=== PATIENT | male | born 1935 | race Caucasian/White ===

== ENCOUNTER 2016-09-18 17:27 | Inpatient (IN) | payer OTHER, MEDICARE ==
[~2016-09-18] VITALS: Ht 180.3 cm; Wt 87.5 kg
[~2016-09-18 17:27] MED LIST: ALBUTEROL 3 ML3 ML INH; AMITIZA24 MCG PO; AMLODIPINE10 MG PO; ANTIVERT 12.512.5 MG; ANTIVERT 12.512.5 MG PO; ATIVAN0.5 MG PO; CARDIZEM CD120 M2 PO; CEFTIN500 MG PO; CENTRUM SILVER1 EAC4 PO; CHILDREN'S ASPI81 M1 PO; CLOPIDOGREL75 MG PO; COLACE100 M1 PO; DIGOXIN250 MCG PO; DILTIAZEM HCL90 MG PO; DOCUSATE SODIU100 M3 PO; DOXAZOSIN MESYLA2 MG PO; DOXAZOSIN MESYLA4 MG PO; DOXAZOSIN2 MG PO; DOXAZOSIN4 MG PO; DUONEB 3 MG/3 ML3 ML INH/SOL; ELIQUIS5 M1 PO; FIBERCON625 M1 PO; FINASTERIDE5 MG PO; FLOVENT HF0.11 MG/Ac INH; FLOVENT HF0.22 MG/Ac INH; FLUTICASON0.05 MG/A2 NASB; FUROSEMIDE40 MG PO; HYDRODIURIL 2525 MG PO; K-DUR 10MEQ TA10 MEQ PO; LACTULOSE10 GM/153 PO; LANOXIN125 MCG PO; LASIX20 M1 PO; LASIX40 M1 PO; LASIX40 MG PO; LIPITOR40 M1 PO; LISINOPRIL-HCT1 EACH PO; LISINOPRIL40 MG PO; LORAZEPAM2 M1 PO; LORAZEPAM2 MG PO; METAMUCIL1 PAC PO; MIRALAX119 GM PO; MIRALAX17 GM PO; MOVANTIK25 M1; NITRO-DUR1 EAC3 TOP; OXYCODONE HCL E20 MG PO; OXYCODONE HCL30 M1 PO; OXYCODONE HYDRO30 MG PO; OXYCONTIN (MONO40 MG PO; OXYCONTIN10 MG PO; OXYCONTIN20 M1 PO; OXYCONTIN20 MG PO; OXYCONTIN40 M1 PO; OXYCONTIN40 MG PO; PANTOPRAZOLE SO20 M1 PO; PATADAY2.5 ML OPH; POTASSIUM CHLO10 ME5 PO; PREDNISONE10 M2 PO; PREDNISONE10 MG PO; PRINIVIL40 MG PO; RELISTOR12 MG/0.2 SC; ROXICODONE30 M1 PO; ROXICODONE30 MG PO; SPIRIVA 18 MCG18 MCG INH; SUPPOSITORY1 EACH PR; TRAZODONE HCL100 M1 PO; TRAZODONE100 MG PO; ZESTORETIC 12.51 TA1 PO
--- NOTE | 2016-09-18 18:02 | ED CARDIAC/CP/PALPITATIONS ---
History of Present Illness General Chief Complaint: Dyspnea (COPD, CHF, Other) Stated Complaint: SHORTNESS OF BREATH Source: patient, family, old records Exam Limitations: no limitations Vital Signs & Intake/Output Vital Signs & Intake/Output Vital Signs Date Time Temp Pulse Resp B/P Pulse O2 O2 Flow FiO2 Ox Delivery Rate 09/21 1011 140 128/70 09/21 0756 97.7 110 20 128/70 94 Nasal 3.0L Cannula 09/21 0040 97.8 81 20 118/70 97 09/21 0000 94 Nasal 3.0L Cannula 09/20 1945 91 Nasal 3.0L Cannula 09/20 1643 98.0 90 20 119 09/20 1607 115 152/84 09/20 1600 Nasal 3.0L Cannula ED Intake and Output 09/21 0000 09/20 1200 Intake Total 1120 480 Output Total 1500 600 Balance -380 -120 Intake, Oral 1120 480 Output, Urine 1500 600 Patient 202 lb Weight Allergies Coded Allergies: NO KNOWN ALLERGIES (05/30/16) Reconcile Medications Albuterol Sulfate 2.5 MG/3 ML (0.083 %) VIAL.NEB 1 Vial INH/JENYN Q4P PRN SOB ( Reported) Apixaban (Eliquis) 5 MG TABLET 1 TAB PO BID BLOOD THINNER (Reported) Aspirin (Children's Aspirin) 81 MG TAB.CHEW 1 TAB PO QPM HEART (Reported) Atorvastatin Calcium (Lipitor) 40 MG TABLET 1 TAB PO DAILY CHOLESTEROL ( Reported) Bisacodyl (Dulcolax) 10 MG SUPP.RECT 1 SUP RC EOD SEVERE CONSTIPATION ( Reported) Diltiazem HCl (Diltiazem 12HR ER) 90 MG CAP.ER.12H 1 CAP PO TID A FIB ( Reported) Docusate Sodium (Colace) 100 MG CAPSULE 2 CAP PO BID CONSTIPATION (Reported) Doxazosin Mesylate (Cardura) 4 MG TABLET 1 TAB PO QAM BP/PROSTATE (Reported) Doxazosin Mesylate 2 MG TABLET 1 TAB PO QPM BP/PROSTATE (Reported) Finasteride 5 MG TABLET 1 TAB PO DAILY PROSTATE (Reported) Fluticasone Propionate (Flovent Hfa) 220 MCG AER.W.ADAP 2 PUFF INH BID COPD/ ASTHMA (Reported) Fluticasone Propionate (Flonase Allergy Relief) 50 MCG/ACTUATION SPRAY.SUSP 2 SPRAY NASB QHS ALLERGIES (Reported) Furosemide 20 MG TABLET 1 TAB PO DAILY DIURETIC (Reported) Glycerin (Suppository) ADULT SUPP.RECT 1 SUPP [place] EOD SEVERE CONSTIPATION ( Reported) Ipratropium/Albuterol Sulfate (Iprat-Albut 0.5-3(2.5) MG/3 Ml) (Unknown Strength ) AMPUL.NEB 1 VIAL INH TID COPD (Reported) Lactulose 10 GRAM/15 ML SOLUTION 30 ML PO PRN CONSTIPATION (Reported) Lorazepam 2 MG TABLET 1 TAB PO QPM ANXIETY (Reported) Per daughter, dose reduced to 1 mg. Multivit-Min/FA/Lycopen/Lutein (Centrum Silver Men Tablet) 300 MCG-600 MCG-300 MCG TABLET 1 TAB PO DAILY SUPPLEMENT (Reported) Nitroglycerin (Nitro-Dur) 0.4 MG/HOUR PATCH.TD24 1 PATCH TOP DAILY CHEST PAIN APPLY FOR 12 HOURS EVERYDAY Oxycodone HCl (Oxycontin) 40 MG TAB.ER.12H 1 TAB PO BID PAIN (Reported) Oxycodone HCl (Oxycontin) 20 MG TAB.ER.12H 1 TAB PO BID PAIN (Reported) PT TAKES 60MG TOTAL BID Oxycodone HCl (Roxicodone) 30 MG TABLET 1-2 TAB PO Q4P PRN pain (Reported) Pantoprazole Sodium 40 MG TABLET.DR 1 TAB PO DAILY GERD (Reported) Polyethylene Glycol 3350 17 GRAM/DOSE POWDER 17 GM PO DAILY GI (Reported) Potassium Chloride 10 MEQ TAB.ER.PRT 1 TAB PO DAILY SUPPLEMENT (Reported) Prednisone 5 MG TABLET 1 TAB PO DAILY COPD (Reported) Tiotropium [place] (Spiriva) 18 MCG CAP.W.DEV 1 CAP INH DAILY COPD (Reported) Trazodone HCl 100 MG TABLET 2 TAB PO QPM anxiety/sleep (Reported) Triage Note: PT TO TRIAGE WITH C/O SOB x2DAYS. PT ARRIVED ON O2 4L NC O2SAT 94%. PT ON O2 2L NC AT BASELINE. HX OF COPD,AFIB,CAD,OH,BYPASS,PACEMAKER,TIA. PT DENIES ANY PAIN. VSS. PT TO [facility] FOR EKG. Triage Nurses Notes Reviewed? yes Onset: Gradual Duration: getting worse Timing: recent history Radiation: no radiation HPI: Patient is a 81-year-old male with a past medical history of COPD on 2 L of oxygen at all times, atrial fibrillation on a liquid with, chronic back pain, CHF who presents to emergency room with daughter in which patient lives in a private residence with his in the last 2 days patient has been complaining of worsening shortness of breath and which at night shortness breath is worse where patient has to use 4 L of oxygen due to hypoxia noted at home with 2 L noted to be 82%. Complains of significant dyspnea on exertion. Denies any new leg swelling or calf pain. Patient does take 20 mg of Lasix which she took today. Patient does go to CHF clinic once a week. 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 Denies any fever, chills, new onset of cough, chest pain arm pain jaw pain nausea vomiting palpitations, hemoptysis. (WILI LOTT) Past History Travel History Traveled to [place] past 21 day No Medical History Any Pertinent Medical History? 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 No (WILI LOTT) Review of Systems Review of Systems Constitutional: Reports: no symptoms. EENTM: Reports: no symptoms. Respiratory: Reports: see HPI, short of breath. Cardiovascular: Reports: see HPI. Denies: chest pain. GI: Reports: no symptoms. Genitourinary: Reports: no symptoms. Musculoskeletal: Reports: no symptoms. Skin: Reports: no symptoms. Neurological/Psychological: Reports: no symptoms. Hematologic/Endocrine: Reports: no symptoms. Immunologic/Allergic: Reports: no symptoms. All Other Systems: Reviewed and Negative (WILI LOTT) Physical Exam Physical Exam General Appearance: no apparent distress, comfortable Respiratory: MILD EXPIRATORY WHEEZING AND CRACKLES NOTED TO LUNG BASES Cardiovascular: irregularly irregular Comments: HEENT: Normal EENT exam, extraocular motion intact, no nystagmus. Pupils equally round and reactive to light and accommodation. Nose is atraumatic. External auditory canal and Tympanic membranes clear. Pharynx normal. No swelling or edema. Neck: Supple, no lymphadenopathy, normal range of motion without pain or tenderness Back: Nontender, no CVA tenderness. Abdomen: Soft, nontender nondistended, no appreciable organomegaly. Normal bowel sounds. No ascites Extremity: +2 bilateral pitting edema noted, no calf tenderness to palpation, normal and equal pulses. Neuro: Alert oriented x3, motor sensory normal, Skin: No appreciable rash on exposed skin, skin is warm and dry. Psych: Mood and affect is normal, memory and judgment is normal. Core Measures ACS in differential dx? Yes Severe Sepsis Present: No Septic Shock Present: No (LETICIA PARADA,WILI) Progress Differential Diagnosis: AMI, aortic dissection, atrial fibrillation, cholecystitis, CHF/pulm edema, costochondritis, hyperkalemia, hypovolemia, hyperthyroid, hyperventilation, musculoskeletal pain, myocarditis, pancreatitis, pericarditis, pneumonia, pneumothorax, PSVT, pulmonary embolism, PUD/GERD, PVCs/ PACs, respiratory failure, sepsis, unstable angina Plan of Care: Orders Procedure Date/time Status Nothing by Mouth 09/24 B Active DIGOXIN 09/24 06 Active DIPYRIDAMOLE STRESS W/NUC IMAG 09/24 UNK Active MAGNESIUM 09/22 0600 Active BASIC ELECTROLYTES PLUS BUN&CR 09/22 0600 Active CHF Diet 09/21 L Active CBC WITHOUT DIFFERENTIAL 09/21 06 Complete BASIC ELECTROLYTES PLUS BUN&CR 09/21 0600 Complete AEROSOL CHG 09/20 UNK Complete OXYGEN 09/20 UNK Complete OXYGEN DAILY CHARGE 09/20 UNK Complete OXYGEN SETUP CHG 09/19 UNK Complete AEROSOL CHG 09/19 UNK Complete OXYGEN 09/19 UNK Complete OXYGEN TRANSPORT 09/19 UNK Complete Current Medications Sig/Satish Start time Last Medication Dose Stop Time Status Admin Prednisone 5 MG DAILY 09/23 1000 AC Digoxin 0.125 MG 09/22 1700 AC (Lanoxin) Prednisone 10 MG ONCE ONE 09/22 1000 AC 09/22 1001 Digoxin 0.125 MCG 0 09/21 1700 CAN (Lanoxin 100MCG/Ml Inj Pediatric) Digoxin 0.125 MG 09/21 1700 AC (Lanoxin) 09/21 1701 Dipyridamole 55 MG ONE ONE 09/21 1030 AC (Persantine I.v. 5MG 09/23 0229 Per Ml (10ML Elizabeth)) Dextrose/Water 29 ML (D5w (Persantine Stress Test)) Digoxin 0.125 MCG ONCE ONE 09/21 1000 CAN (Lanoxin 100MCG/Ml 09/21 1001 Inj Pediatric) Lactulose 20 GM DAILY PRN 09/19 1700 AC (Enulose 20GM/30ML) Laboratory Tests 09/21/16 0610: Anion Gap 7, Estimated GFR > 60, BUN/Creatinine Ratio 23.8, CBC w Diff NO MAN DIFF REQ, RBC 3.35 L, MCV 79.9 L, MCH 26.0 L, RDW 17.0 H, MPV 7.8, Gran % 65.0, Lymphocytes % 27.2, Monocytes % 7.4, Eosinophils % 0.4, Basophils % 0 L, Absolute Granulocytes 4.6, Absolute Lymphocytes 1.9, Absolute Monocytes 0.5, Absolute Eosinophils 0, Absolute Basophils 0, PUBS MCHC 32.5 L Patient at rest was noted to have 89% with 4 L of oxygen and was due to history of present illness and exam findings there is significant suspicion of CHF and COPD. Nasal cannula was increased however after breathing treatment patient had 92% to 93% 4 L nasal cannula oxygenation (LETICIA PARADA,WILI) Diagnostic Imaging: Viewed by Me: Radiology Read. CXR Impression: SEE COMMENTS Initial ED EKG: normal axis (ATRIAL PACED RHYTHM AT 103 BPM) Comments: PATIENT: GUMARO CALI PRESENT AGE: 81 PATIENT ACCOUNT NO: [id number] : 34 LOCATION: [facility] ORDERING PHYSICIAN: WILI PARADA SERVICE DATE: 09/18/16 EXAM TYPE: RAD - XRY-PORTABLE CHEST XRAY EXAMINATION: AP chest radiograph CLINICAL INFORMATION: CHF/COPD COMPARISON: Chest radiograph 08/30/2016 and multiple additional prior chest radiographs TECHNIQUE: Portable AP view of the chest was obtained. FINDINGS: Left pectoral pacemaker is redemonstrated. Median sternotomy wires. Diffuse interstitial and hazy airspace opacities with central vascular congestion at least in part felt to reflect interstitial pulmonary edema that is slightly improved in comparison to the prior study. Previously seen small left pleural effusion is decreased in size. There is no pneumothorax. Cardiac silhouette is enlarged. No acute osseous findings. IMPRESSION: Imaging findings are again suggestive of congestive heart failure with interstitial pulmonary edema that is slightly improved in comparison to the previous study. Decreased size of a small left pleural effusion. Superimposed pneumonia is not excluded. (WILI LOTT) Departure Departure Disposition: STILL A PATIENT Condition: Stable Clinical Impression Primary Impression: CHF (congestive heart failure) Secondary Impressions: COPD (chronic obstructive pulmonary disease) Referrals: CARLOTTA WIGGINS,JOSE ALEJANDRO Strange (PCP/Family) Departure Forms: Customer Survey General Discharge Information Admission Note Spoke With: HARJIT CROFT MD Documentation of Exam: Documentation of any treatments & extenuating circumstances including Concerns Regarding Discharge (functional status, medication knowledge or non-compliance, living conditions, etc.) that warrant an admission rather than observation: [ Discussed patient with Dr. CROFT who agrees with telemetry admission for concerns of CHF and COPD. Patient requires IV steroids, repeat nebulizer treatments, IV Lasix, cardiology consultation, telemetry monitoring and repeat labs. Outpatient treatment this time due to comorbidities and presentation of dyspnea would be medically harmful] (WILI LOTT) PA/UTILIZATION REVIEW SPECIALIST Co-Sign Statement Statement: ED Attending supervision documentation- [x] I saw and evaluated the patient. I have also reviewed all the pertinent lab results and diagnostic results. I agree with the findings and the plan of care as documented in the PA's/UTILIZATION REVIEW SPECIALIST's documentation. [] I have reviewed the ED Record and agree with the PA's/UTILIZATION REVIEW SPECIALIST's documentation. [] Additions or exceptions (if any) to the PAs/UTILIZATION REVIEW SPECIALIST's note and plan are summarized below: [] (LUCIUS WIGGINS,LISA Jones) Critical Care Note Critical Care Note Critical Care Time: 30-74 min (WILI LOTT)
--- NOTE | 2016-09-18 18:37 | RADIOLOGY REPORT ---
EXAMINATION: AP chest radiograph CLINICAL INFORMATION: CHF/COPD COMPARISON: Chest radiograph 08/30/2016 and multiple additional prior chest radiographs TECHNIQUE: Portable AP view of the chest was obtained. FINDINGS: Left pectoral pacemaker is redemonstrated. Median sternotomy wires. Diffuse interstitial and hazy airspace opacities with central vascular congestion at least in part felt to reflect interstitial pulmonary edema that is slightly improved in comparison to the prior study. Previously seen small left pleural effusion is decreased in size. There is no pneumothorax. Cardiac silhouette is enlarged. No acute osseous findings. IMPRESSION: Imaging findings are again suggestive of congestive heart failure with interstitial pulmonary edema that is slightly improved in comparison to the previous study. Decreased size of a small left pleural effusion. Superimposed pneumonia is not excluded.
[2016-09-18 19:13] LABS: ABSOLUTE BASOPHIL COUNT 0 /CUMM (0.0-0.2); ABSOLUTE EOSINOPHIL COUNT 0 /CUMM (0.0-0.7); ABSOLUTE GRANULOCYTE CT 4.4 /CUMM (1.4-6.5); ABSOLUTE LYMPH COUNT 0.7 /CUMM (1.2-3.4); ABSOLUTE MONOCYTE COUNT 0.3 /CUMM (0.10-0.60); BASOPHIL % 0.4 % (0.0-2.0); EOSINOPHIL % 0.8 % (0-5); GRANULOCYTE % 81.1 % (42.2-75.2); HEMATOCRIT 26.1 % (42-52); MEAN CORPUSCULAR HGB 25.8 PG (27.0-31.0); MEAN CORPUSCULAR HGB CONC 32.3 G/DL (33.0-37.0); MEAN PLATELET VOLUME 7.2 FL (7.4-10.4); PLATELET COUNT 222 /CUMM (130-400); RBC DISTRIBUTION WIDTH 17.7 % (11.5-14.5); RED BLOOD CELL CT 3.26 /CUMM (4.70-6.10); WHITE BLOOD CELL COUNT 5.5 /CUMM (4.8-10.8)
[2016-09-18] MEDS ORDERED: ALBUTEROL2.5 MG/3 M INH/SOL (19:33)
[2016-09-18] MEDS ORDERED: IPRAT-ALBUT 0.5-3 ML INH (19:34)
[2016-09-18] MEDS ORDERED: DILTIAZEM 12HR90 MG PO (19:36)
[2016-09-18] MEDS ORDERED: CARDURA4 M1 PO (19:37)
[2016-09-18] MEDS ORDERED: DOXAZOSIN MESYLA2 M1 PO (19:37)
[2016-09-18] MEDS ORDERED: FLOVENT HFA12 GM INH (19:38)
[2016-09-18] MEDS ORDERED: FINASTERIDE5 M1 PO (19:38)
[2016-09-18] MEDS ORDERED: FLONASE ALLERG9.9 ML NASB (19:39)
[2016-09-18] MEDS ORDERED: DULCOLAX10 M1 RC (19:40)
[2016-09-18] MEDS ORDERED: PANTOPRAZOLE SO40 M1 PO (19:42)
[2016-09-18] MEDS ORDERED: PREDNISONE5 M1 PO (19:43)
[2016-09-18] MEDS ORDERED: SPIRIVA18 MCG INH (19:43)
[2016-09-18] MEDS ORDERED: FUROSEMIDE20 M1 PO (19:44)
[2016-09-18] MEDS ORDERED: POLYETHYLENE G255 GM PO (19:44)
--- NOTE | 2016-09-18 22:19 | History & Physical ---
General Information and HPI Allergies/Medications Allergies: Coded Allergies: NO KNOWN ALLERGIES (05/30/16) Home Med list Albuterol Sulfate 2.5 MG/3 ML (0.083 %) VIAL.NEB 1 Vial INH/JENNY Q4P PRN SOB ( Reported) Apixaban (Eliquis) 5 MG TABLET 1 TAB PO BID BLOOD THINNER (Reported) Aspirin (Children's Aspirin) 81 MG TAB.CHEW 1 TAB PO QPM HEART (Reported) Atorvastatin Calcium (Lipitor) 40 MG TABLET 1 TAB PO DAILY CHOLESTEROL ( Reported) Bisacodyl (Dulcolax) 10 MG SUPP.RECT 1 SUP RC EOD SEVERE CONSTIPATION ( Reported) Diltiazem HCl (Diltiazem 12HR ER) 90 MG CAP.ER.12H 1 CAP PO TID A FIB ( Reported) Docusate Sodium (Colace) 100 MG CAPSULE 2 CAP PO BID CONSTIPATION (Reported) Doxazosin Mesylate (Cardura) 4 MG TABLET 1 TAB PO QAM BP/PROSTATE (Reported) Doxazosin Mesylate 2 MG TABLET 1 TAB PO QPM BP/PROSTATE (Reported) Finasteride 5 MG TABLET 1 TAB PO DAILY PROSTATE (Reported) Fluticasone Propionate (Flovent Hfa) 220 MCG AER.W.ADAP 2 PUFF INH BID COPD/ ASTHMA (Reported) Fluticasone Propionate (Flonase Allergy Relief) 50 MCG/ACTUATION SPRAY.SUSP 2 SPRAY NASB QHS ALLERGIES (Reported) Furosemide 20 MG TABLET 1 TAB PO DAILY DIURETIC (Reported) Glycerin (Suppository) ADULT SUPP.RECT 1 SUPP [place] EOD SEVERE CONSTIPATION ( Reported) Ipratropium/Albuterol Sulfate (Iprat-Albut 0.5-3(2.5) MG/3 Ml) (Unknown Strength ) AMPUL.NEB 1 VIAL INH TID COPD (Reported) Lactulose 10 GRAM/15 ML SOLUTION 30 ML PO PRN CONSTIPATION (Reported) Lorazepam 2 MG TABLET 1 TAB PO QPM ANXIETY (Reported) Per daughter, dose reduced to 1 mg. Multivit-Min/FA/Lycopen/Lutein (Centrum Silver Men Tablet) 300 MCG-600 MCG-300 MCG TABLET 1 TAB PO DAILY SUPPLEMENT (Reported) Nitroglycerin (Nitro-Dur) 0.4 MG/HOUR PATCH.TD24 1 PATCH TOP DAILY CHEST PAIN APPLY FOR 12 HOURS EVERYDAY Oxycodone HCl (Oxycontin) 40 MG TAB.ER.12H 1 TAB PO BID PAIN (Reported) Oxycodone HCl (Oxycontin) 20 MG TAB.ER.12H 1 TAB PO BID PAIN (Reported) PT TAKES 60MG TOTAL BID Oxycodone HCl (Roxicodone) 30 MG TABLET 1-2 TAB PO Q4P PRN pain (Reported) Pantoprazole Sodium 40 MG TABLET.DR 1 TAB PO DAILY GERD (Reported) Polyethylene Glycol 3350 17 GRAM/DOSE POWDER 17 GM PO DAILY GI (Reported) Potassium Chloride 10 MEQ TAB.ER.PRT 1 TAB PO DAILY SUPPLEMENT (Reported) Prednisone 5 MG TABLET 1 TAB PO DAILY COPD (Reported) Tiotropium [place] (Spiriva) 18 MCG CAP.W.DEV 1 CAP INH DAILY COPD (Reported) Trazodone HCl 100 MG TABLET 2 TAB PO QPM anxiety/sleep (Reported) Past History Travel History Traveled to [place] past 21 day No Medical History Neurological: TIA EENT: NONE Cardiovascular: AFIB, CAD, hypertension, hyperlipidemia, myocardial infarction Respiratory: COPD, emphysema, pneumonia Gastrointestinal: hiatal hernia, pancreatitis, peptic ulcer disease Hepatic: NONE Renal: NONE Musculoskeletal: disk herniation, spinal stenosis Psychiatric: NONE Endocrine: BORDERLINE DM Blood Disorders: NONE Cancer(s): NONE 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 spouse Services at Home: None Primary Language: Nepali Functional Ability ADLs Independent: dressing, eating, toileting, bathing. Ambulation: walker IADLs Needs Assist: shopping, housework, finances, food prep, telephone, transportation, medication admin. Core Measures/Miscellaneous Severe Sepsis Severe Sepsis Present: No BC x2: Yes Lactic Acid x2: No IV ABX Broad Spectrum: No Septic Shock Septic Shock Present: No
--- NOTE | 2016-09-18 22:32 | History & Physical ---
NOVA WIGGINS,ANITRA 09/18/162: General Information and HPI MD Statement: I have seen and personally examined GUMARO CALI and documented this H&P. The patient is a 81 year old M who presented with a patient stated chief complaint of [SOB]. Source of Information: patient, family, old records Exam Limitations: no limitations History of Present Illness: This is an 81-year-old gentleman with past medical history significant for A. fib on Eliquis, COPD on 2 L o2 and indefinite steroids, hyperlipidemia, CHF, hypertension, tachy-matty syndrome status post permanent pacemaker who came in with CC of shortness of breath. Patient is predominantly Ugandan speaking so most of the history is obtained from his daughters in the room. Per daughter, this a.m. when she called, her father he seemed to be short of breath above his baseline. She had them check the pulse ox and he had saturation of 84%. Patient then increased the O2 to to 3.5 L and subsequently his saturations came up to 94%. His daughter was concerned that even short distance ambulation was causing increased shortness of breath. She called the COPD/CHF clinic but they were closed by 1:30 PM. As such, the daughter brought patient to [facility] for further workup. Patient does endorse some increased sputum. Per daughter she noticed some blood in dark sputum today. Patient denies any fevers, chills, headache, dizziness, palpitations, chest pain or sick contacts. He does endorse shortness of breath, darkening of sputum and increasing lower extremity edema. He normally goes to the CHF clinic on Wednesdays and receives 40 mg of IV Lasix diuresis. Of note, it seems like during his last admission his Lasix was stopped because patient was having kidney injury. However, the daughter has been giving him his daily by mouth Lasix 20 mg regardless as she was unaware of the change in medication. Patient has had previous admissions for SOB 2/2 multilbar PNA due to H. flu and a CHF exacerbation. On July 19 he was admitted for digoxin toxicity; after which the medication was stopped. At that time a BAL showed negative AFB smear but an AFB culture was positive for MAC. During that admission he also had a minimal increase in troponin. He was supposed to follow up after discharge with Dr. Lora for nuclear stress test and possible cardiac catheterization. Per family, stress test was deferred due to inclement weather. Allergies/Medications Allergies: Coded Allergies: NO KNOWN ALLERGIES (05/30/16) Home Med list Albuterol Sulfate 2.5 MG/3 ML (0.083 %) VIAL.NEB 1 Vial INH/JENNY Q4P PRN SOB ( Reported) Apixaban (Eliquis) 5 MG TABLET 1 TAB PO BID BLOOD THINNER (Reported) Aspirin (Children's Aspirin) 81 MG TAB.CHEW 1 TAB PO QPM HEART (Reported) Atorvastatin Calcium (Lipitor) 40 MG TABLET 1 TAB PO DAILY CHOLESTEROL ( Reported) Bisacodyl (Dulcolax) 10 MG SUPP.RECT 1 SUP RC EOD SEVERE CONSTIPATION ( Reported) Diltiazem HCl (Diltiazem 12HR ER) 90 MG CAP.ER.12H 1 CAP PO TID A FIB ( Reported) Docusate Sodium (Colace) 100 MG CAPSULE 2 CAP PO BID CONSTIPATION (Reported) Doxazosin Mesylate (Cardura) 4 MG TABLET 1 TAB PO QAM BP/PROSTATE (Reported) Doxazosin Mesylate 2 MG TABLET 1 TAB PO QPM BP/PROSTATE (Reported) Finasteride 5 MG TABLET 1 TAB PO DAILY PROSTATE (Reported) Fluticasone Propionate (Flovent Hfa) 220 MCG AER.W.ADAP 2 PUFF INH BID COPD/ ASTHMA (Reported) Fluticasone Propionate (Flonase Allergy Relief) 50 MCG/ACTUATION SPRAY.SUSP 2 SPRAY NASB QHS ALLERGIES (Reported) Furosemide 20 MG TABLET 1 TAB PO DAILY DIURETIC (Reported) Glycerin (Suppository) ADULT SUPP.RECT 1 SUPP MI EOD SEVERE CONSTIPATION ( Reported) Ipratropium/Albuterol Sulfate (Iprat-Albut 0.5-3(2.5) MG/3 Ml) (Unknown Strength ) AMPUL.NEB 1 VIAL INH TID COPD (Reported) Lactulose 10 GRAM/15 ML SOLUTION 30 ML PO PRN CONSTIPATION (Reported) Lorazepam 2 MG TABLET 1 TAB PO QPM ANXIETY (Reported) Per daughter, dose reduced to 1 mg. Multivit-Min/FA/Lycopen/Lutein (Centrum Silver Men Tablet) 300 MCG-600 MCG-300 MCG TABLET 1 TAB PO DAILY SUPPLEMENT (Reported) Nitroglycerin (Nitro-Dur) 0.4 MG/HOUR PATCH.TD24 1 PATCH TOP DAILY CHEST PAIN APPLY FOR 12 HOURS EVERYDAY Oxycodone HCl (Oxycontin) 40 MG TAB.ER.12H 1 TAB PO BID PAIN (Reported) Oxycodone HCl (Oxycontin) 20 MG TAB.ER.12H 1 TAB PO BID PAIN (Reported) PT TAKES 60MG TOTAL BID Oxycodone HCl (Roxicodone) 30 MG TABLET 1-2 TAB PO Q4P PRN pain (Reported) Pantoprazole Sodium 40 MG TABLET.DR 1 TAB PO DAILY GERD (Reported) Polyethylene Glycol 3350 17 GRAM/DOSE POWDER 17 GM PO DAILY GI (Reported) Potassium Chloride 10 MEQ TAB.ER.PRT 1 TAB PO DAILY SUPPLEMENT (Reported) Prednisone 5 MG TABLET 1 TAB PO DAILY COPD (Reported) Tiotropium [place] (Spiriva) 18 MCG CAP.W.DEV 1 CAP INH DAILY COPD (Reported) Trazodone HCl 100 MG TABLET 2 TAB PO QPM anxiety/sleep (Reported) Compliance With Home Meds: GOOD Past History Travel History Traveled to [place] past 21 day No Medical History Neurological: TIA EENT: NONE Cardiovascular: AFIB, CAD, hypertension, hyperlipidemia, myocardial infarction Respiratory: COPD, emphysema, pneumonia Gastrointestinal: hiatal hernia, pancreatitis, peptic ulcer disease Hepatic: NONE Renal: NONE Musculoskeletal: disk herniation, spinal stenosis Psychiatric: NONE Endocrine: BORDERLINE DM Blood Disorders: NONE Cancer(s): NONE PRICE LISTER/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 spouse Services at Home: None Primary Language: Ugand[place] Functional Ability ADLs Independent: dressing, eating, toileting, bathing. Ambulation: walker IADLs Needs Assist: shopping, housework, finances, food prep, telephone, transportation, medication admin. Exam & Diagnostic Data Last 24 Hrs of Vital Signs/I&O Vital Signs Date Time Temp Pulse Resp B/P Pulse O2 O2 Flow FiO2 Ox Delivery Rate 09/19 0000 Nasal 3.0L Cannula 09/18 2308 98.2 68 22 140/70 93 Nasal 3.0L Cannula 09/189 93 Nasal 3.0L Cannula 09/18 2132 96 18 133/71 95 Room Air 09/18 2100 98.7 92 20 116/61 93 Nasal 3.0L Cannula 09/184 94 Nasal 3.0L Cannula 09/18 1950 93 Nasal 3.0L Cannula 09/18 1936 98.9 85 18 135/65 93 Nasal 3.0L Cannula 09/18 1733 98.2 118 18 149/79 94 Nasal 4.0L Cannula Intake & Output 09/19 0800 09/19 0000 09/18 1600 Intake Total 0 Output Total 1225 Balance -1225 Intake, Oral 0 Output, Urine 1225 Patient 95.708 kg Weight Physical Exam General Appearance Alert, Oriented X3, Cooperative, No Acute Distress Skin No Rashes, No Breakdown HEENT Atraumatic, PERRLA, EOMI Neck Supple Cardiovascular irreg irregular Lungs crackles and expiratory wheezes throughout Abdomen Soft, No Tenderness Neurological Normal Speech Extremities No Clubbing, No Cyanosis, 2+ EDEMA Last 24 Hrs of Labs/Esteban: Laboratory Tests 09/18/162205: Troponin I 0.02 09/18/162112: Lactic Acid Cancelled 09/18/16 1855: Anion Gap 8, Estimated GFR > 60, BUN/Creatinine Ratio 15.7, Glucose 201 H, Lactic Acid 1.8, Calcium 8.9, Iron 20 L, TIBC 315, Ferritin 66.1, Total Bilirubin 1.1, AST 16 L, ALT 24, Alkaline Phosphatase 70, Troponin I 0.02, Pro- B-Natriuretic Pept 2700 H, Total Protein 6.2 L, Albumin 3.0 L, Globulin 3.2, Albumin/Globulin Ratio 0.9 L, CBC w Diff NO MAN DIFF REQ, RBC 3.26 L, MCV 80.0 , MCH 25.8 L, RDW 17.7 H, MPV 7.2 L, Gran % 81.1 H, Lymphocytes % 12.0 L, Monocytes % 5.7, Eosinophils % 0.8, Basophils % 0.4, Absolute Granulocytes 4.4, Absolute Lymphocytes 0.7 L, Absolute Monocytes 0.3, Absolute Eosinophils 0, Absolute Basophils 0, PUBS MCHC 32.3 L, Digoxin < 0.4 L Microbiology 09/18 2214 LOWER RESP: Respiratory Culture - RES 09/18 2214 LOWER RESP: Gram Stain - RES 09/18 1925 NASOPHARYN: Influenza Virus A & B Rapid Smear - COMP 09/18 1907 BLOOD: Blood Culture - RECD 09/18 1854 BLOOD: Blood Culture - RECD Assessment/Plan Assessment: This is an 81-year-old male with past medical history of COPD on 2 L O2 and steroids, atrial fibrillation on Eliquis, and CHF. He presents at this time for worsening shortness of breath, darkening of sputum and anemia noted upon ED workup. CXR: Imaging findings are again suggestive of congestive heart failure with interstitial pulmonary edema that is slightly improved in comparison to the previous study. Decreased size of a small left pleural effusion. Superimposed pneumonia is not excluded. EKG shows: Rate 103, MI 140, QRS 110, paced rhythm PLAN Shortness of breath: Given patient's increasing lower extremity edema and chest imaging showing congestive heart failure most likely he is in CHF exacerbation. He has a history of heart failure with preserved reaction fraction. However cannot exclude COPD component. He is currently afebrile, with no white count. This time it does not seem likely that he has an infection. * IV Lasix 40 mg 1 * Hold by mouth Lasix at this time. Consider restarting it in a.m. * CHF diet * Strict I's and O's * Daily weights * Cardiology consult * Continue baby aspirin * Continue fluticasone Anemia: On admission patient has lab significant for hemoglobin 8.4, hematocrit 26.1 and MCV of 80. His baseline is normally significantly higher around for . Patient denied any hematuria, hematochezia, melena, hematemesis. However he did say he had an episode of cough with phlegm with some redness in it. Stool guaiac done on admission was negative. * Monitor on telemetric * Trend troponin indicated * Fe/TIBC/LDH * Spiriva Hypertension/hyperlipidemia: Chronic and stable * Continue Lipitor 40 mg daily * Con't nitroglycerin * Continue Cardizem 90 mg by mouth 3 times a day Atrial fibrillation: Chronic and stable. Patient has history of tachybradycardia with implanted pacemaker. On EKG he does look like he is in a paced rhythm. * Continue Eliquis BPH: Chronic and stable * Continue Proscar 5 mg by mouth daily * Continue Cardura 4 mg by mouth daily Chronic pain: Chronic and stable * Continue home oxycodone and OxyContin * Continue trazodone 20 mg by mouth every night * Continue Ativan 2 mg at night Full code CHF diet Chemical DVT prophylaxis As Ranked By This Provider Problem List: 1. Benign essential hypertension 2. CAD 3. COPD 4. Obstructive sleep apnea syndrome 5. SOB (shortness of breath) Core Measures/Miscellaneous Acute Coronary Syndrome ACS Diagnosis: No Cerebrovascular Accident CVA/TIA Diagnosis: No Congestive Heart Failure CHF Diagnosis: No Venous Thromboembolism VTE Risk Factors: Acute medical illness, Age > 40 VTE Prophylaxis Ordered Inpt: Pharm- Lovenox No Mech VTE prophylaxis d/t: No contraindications No VTE Pharm Prophylaxis d/t: No contraindications VTE Diagnosis: No VTE Type: NONE VTE Confirmed by (Test): NONE Severe Sepsis Severe Sepsis Present: No BC x2: Yes Lactic Acid x2: No IV ABX Broad Spectrum: No Septic Shock Septic Shock Present: No Miscellaneous Documentation Attending Case Discussed With: FELIZ CROFT MDLisa Primary Care Physician: JOSE ALEJANDRO LAGUERRE MD Patient sees these Specialists Dr. Ware Level of Patient Care: Telemetry OSCAR FLETCHER MD 09/18/16 2237: Review of Systems Review of Systems Constitutional: Reports: see HPI. Resident Review Statement Resident Statement: examined this patient, discussed with [employer] compliance internship Other Findings: This is an 81-year-old gentleman with past history significant for atrial fibrillation on ELIQUIS, hypertension, hyperlipidemia, congestive heart failure, recent admission to [facility] in June 2016 for digitalis toxicity which has since been stopped, COPD that presented to the emergency room today with acute dyspnea. He was having dyspnea with exertion and also while at rest and has some phlegmy sputum. Per daughter she checked his O2 sat at home which was down to 84% and they brought him to the emergency room. He denies any recent illnesses or sick contacts, fevers or chills, says that the shortness of breath was acute. While in the emergency room he received breathing treatment, IV steroids and Lasix and his symptoms have since been alleviated. He takes 20 mg of Lasix every day at home by mouth and once a week which is every Saturday he goes to [facility] and gets 40 IV Lasix. Physical exam- Alert and oriented to time place and person Cardiovascular exam normal S1 and S2, 2/6 systolic ejection murmur, irregular rate and rhythm Lung exams have crackles bilaterally at both bases Abdomen is soft, nontender, bowel sounds are present Extremities have 2+ bilateral lower edema He is guaiac negative EKG rate 103, MI 148, QRS 110, QTC 477, paced Chest x-ray shows interstitial pulmonary edema suggestive of congestive heart failure Assessment- 1. Heart failure with preserved ejection fraction, acute on chronic 2. History of atrial fibrillation 3. Acute anemia, hemoglobin 8.4, hematocrit 26.1; baseline is 11 and 35 4. Dyspnea, mild COPD exacerbation, 2 L home oxygen dependent COPD 5. Hypertension 6. Hyperlipidemia 7. BPH 8. Anxiety and depression 9. Chronic pain syndrome Plan- Telemetry admit Trend troponin and EKG Strict I's and O's Daily weight CHF diet 40 IV Lasix daily Echocardiogram Cardiology consult Continue all other home meds, hold by mouth Lasix Anemia workup DVT prophylaxis been addressed with Eliquis Continue all pain meds which he takes at home by mouth namely oxycodone and OxyContin, hence no pain pathway ordered Full code LANG WIGGINS, [facility] 09/18/16 2303: Attending MD Review Statement Attending Statement Attending MD Statement: examined this patient, discuss w/resident/PA/DIET ASSISTANT, agreed w/resident/PA/DIET ASSISTANT, discussed with family Attending Assessment/Plan: 81 yo Ugandan speaking M with h/o COPD on 2L O2 and prednisone, Afib on eliquis, chronic pain on opiates, chronic diastolic HF, tachybrady syndrome s/p PPM, recent admission for digitoxicity (07/19 07/21) now off digoxin, pw 2-day h/o dyspnea on exertion with increasing O2 requirement, orthopnea, LE edema and productive cough. O2 sats were 84% on 2L. Of note, patient was discharged without any lasix (due to renal insufficiency) on the CMR, however daughter confirms that patient has been taking lasix 20 mg daily. He also goes to the CHF clinic once a week to get lasix IV 40 mg, last was on Tuesday 09/12. Vitals stable, except for sats 93% on 3-4 L. Exam: Chest b/l scattered wheeze, few basilar crackles, Heart S1S2 regular, systolic murmur+, LE b/l 2+ edema. Labs: H/H 8.4/26.1 (Jun), normocytic anemia, Bicarb 34, lactic acid 1.8, trop neg, proBNP 2700. CXR: congestive heart failure with interstitial pulmonary edema. EKG: Paced. Echo (2015): EF 60-65%, RVSP 46 mmHg. Rectal: guaiac negative in ER. 1. Acute on chronic hypoxic respiratory failure 2/2 acute on chronic diastolic heart failure, with mild COPD exacerbation. Acute symptomatic anemia could be a contributing factor as well. Tele admit, daily weights, strict I and Os, serial EKG and troponin, lasix IV 40 mg daily, Echo, Cardio and Pulm consult. TR nebs, received IV steroids in ER, will do a rapid prednisone taper and to continue 5 mg daily thereafter. Work up anemia with iron studies, guaiac all stools, check retic count. Last EGD normal and colonoscopy tubular adenoma and diverticulosis.(2011). Consider GI workup as appropriate. Keep Hb > 8.0. DVT ppx Eliquis. Full code.
--- NOTE | 2016-09-18 23:04 | Admission Certification ---
Admission Certification Certification Statement - As attending physician, I certify that at the time of - admission, based on clinical presentation, severity of - symptoms, need for further diagnostic testing and - therapeutic interventions, and risk of adverse outcomes - without in-hospital treatment, in my clinical assessment, - this patient requires an acute hospital stay for a minimum - of two nights or longer. I have also considered psychsocial - factors such as support system, advanced age, financial - issues, cognitive issues, and failed out-patient treatments, - past re-admission history, safety of patient, and lack of - compliance as applicable. Specific rationale supporting this admission is: Acute on chronic hypoxic respiratory failure, CHF exacerbation. Anemia needs workup.
[2016-09-18 23:08] VITALS: BP 140/70
[2016-09-19 05:24] LABS: ABSOLUTE BASOPHIL COUNT 0 /CUMM (0.0-0.2); ABSOLUTE EOSINOPHIL COUNT 0 /CUMM (0.0-0.7); ABSOLUTE GRANULOCYTE CT 4.8 /CUMM (1.4-6.5); ABSOLUTE LYMPH COUNT 0.8 /CUMM (1.2-3.4); ABSOLUTE MONOCYTE COUNT 0 /CUMM (0.10-0.60); BASOPHIL % 0 % (0.0-2.0); EOSINOPHIL % 0.2 % (0-5); GRANULOCYTE % 85.2 % (42.2-75.2); HEMATOCRIT 27.9 % (42-52); MEAN CORPUSCULAR HGB 25.8 PG (27.0-31.0); MEAN CORPUSCULAR HGB CONC 32.2 G/DL (33.0-37.0); MEAN PLATELET VOLUME 7.6 FL (7.4-10.4); PLATELET COUNT 211 /CUMM (130-400); RBC DISTRIBUTION WIDTH 17.4 % (11.5-14.5); RED BLOOD CELL CT 3.49 /CUMM (4.70-6.10); WHITE BLOOD CELL COUNT 5.6 /CUMM (4.8-10.8)
--- NOTE | 2016-09-19 07:02 | PN- Housestaff ---
BRIDGETTE EVANS MD 09/19/16 0701: Subjective Follow-up For: Shortness of breath CHF exacerbation COPD Subjective: Patient seen and examined at bedside this AM. He continues to endorse dyspnea that is worse than baseline. He denies chest pain, palpitations, weakness. Review of Systems Constitutional: Denies: chills, fever. EENTM: Denies: visual changes. Cardiovascular: Denies: chest pain. Respiratory: Reports: short of breath, sputum production. Denies: cough. Gastrointestinal: Denies: nausea, vomiting. Genitourinary: Denies: dysuria. Musculoskeletal: Denies: back pain. Skin: Denies: rash. Neurological/Psychological: Denies: confusion, depressed. Hematologic/Endocrine: Denies: bruising. Objective Last 24 Hrs of Vital Signs/I&O Vital Signs Date Time Temp Pulse Resp B/P Pulse O2 O2 Flow FiO2 Ox Delivery Rate 09/19 1117 Nasal 3.0L Cannula 09/19 0800 Nasal 3.0L Cannula 09/19 0800 97.8 64 20 130/70 94 Nasal Cannula 09/19 0000 Nasal 3.0L Cannula 09/18 2308 98.2 68 22 140/70 93 Nasal 3.0L Cannula 09/18 2259 93 Nasal 3.0L Cannula 09/18 2132 96 18 133/71 95 Room Air 09/18 2100 98.7 92 20 116/61 93 Nasal 3.0L Cannula 09/18 2044 94 Nasal 3.0L Cannula 09/18 1950 93 Nasal 3.0L Cannula 09/18 1936 98.9 85 18 135/65 93 Nasal 3.0L Cannula 09/18 1733 98.2 118 18 149/79 94 Nasal 4.0L Cannula Intake & Output 09/19 1600 09/19 0800 09/19 0000 Intake Total 480 60 0 Output Total 697 [id number] [id number] Balance -120 -440 -1225 Intake, IV 10 Intake, Oral 480 50 0 Number 1 Bowel Movements Output, Urine 575 877 1941 Patient 211 lb Weight Physical Exam General Appearance: Alert, Oriented X3, Cooperative, No Acute Distress Skin: No Significant Lesion HEENT: Atraumatic, PERRLA, Mucous Membr. moist/pink Neck: Supple, No LAD Cardiovascular: Irregularly irregular Lungs: Normal Air Movement, No wheezing appreciated, basal crackles Abdomen: Normal Bowel Sounds, Soft, No Tenderness, No Hepatospenomegaly, No Masses Neurological: Normal Speech, Normal Tone Extremities: No Clubbing, No Cyanosis, 2+ bilateral lower extremity edema Vascular: Pulses Symmetrical Current Medications: Current Medications Sig/Satish Start time Last Medication Dose Route Stop Time Status Admin Albuterol Sulfate 3 ML TID 09/19 1000 AC 09/19 INH 1420 Albuterol Sulfate 3 ML ONCE ONE 09/18 1815 DC 09/18 INH 09/18 181 1950 Apixaban 5 MG BID 09/18 2200 AC 09/19 PO 0915 Aspirin 81 MG QPM 09/18 2200 AC 09/18 PO 2209 Aspirin 0 .STK-MED ONE 09/18 2153 DC PO Atorvastatin Calcium 40 MG 1700 09/19 1700 AC PO Bisacodyl 10 MG ONCE ONE 09/19 1145 DC 09/19 NJ 09/19 1146 1157 Diltiazem HCl 90 MG TID 09/18 2230 AC 09/19 PO 0915 Doxazosin Mesylate 4 MG DAILY 09/19 1000 AC 09/19 PO 0916 Doxazosin Mesylate 2 MG QPM 09/18 2230 AC 09/19 PO 0004 Ferrous Sulfate 325 MG DAILY 09/19 1537 AC PO Finasteride 5 MG DAILY 09/19 1000 AC 09/19 PO 0916 Fluticasone 2 PUF BID 09/18 2200 AC 09/19 Propionate INH 1212 Furosemide 40 MG DAILY 09/19 1000 AC 09/19 IV 0916 Furosemide 0 .STK-MED ONE 09/18 1950 DC IV Furosemide 40 MG ONCE ONE 09/18 181 DC 09/18 IV 09/18 181 195 Ipratropium [place] 2.5 ML TID 09/19 1000 AC 09/19 INH 1420 Ipratropium [place] 2.5 ML ONCE ONE 09/18 1815 DC 09/18 INH 09/18 181 1950 Lorazepam 2 MG QPM 09/19 2200 AC PO Methylprednisolone 0 .STK-MED ONE 09/18 1950 DC .ROUTE Methylprednisolone 125 MG ONCE ONE 09/18 181 DC 09/18 IV 09/18 [id number] Nitroglycerin 0.4 MG DAILY 09/19 1000 DC 09/19 TOP 0916 Omeprazole 40 MG DAILY AC 09/19 0700 AC 09/19 PO 0914 Oxycodone HCl 60 MG BID 09/19 1000 AC 09/19 PO 0914 Oxycodone HCl 40 MG BID 09/19 1000 CAN PO Oxycodone HCl 1 MG Q4P PRN 09/18 2314 DC PO Oxycodone HCl 30 MG Q4P PRN 09/18 2314 AC PO Oxycodone HCl See Dose Q4P PRN 09/18 2229 DC Insts (1) PO Oxycodone HCl 0 .STK-MED ONE 09/18 2207 DC PO Oxycodone HCl 0 .STK-MED ONE 09/18 2205 DC PO Oxycodone HCl 60 MG ONCE ONE 09/18 2144 DC 09/18 PO 09/18 Polyethylene Glycol 17 GM DAILY 09/19 1000 AC 09/19 PO 0916 Prednisone 5 MG DAILY 09/23 1000 AC PO Prednisone 10 MG ONCE ONE 09/22 1000 AC PO 09/22 1001 Prednisone 20 MG ONCE ONE 09/21 1000 AC PO 09/21 1001 Prednisone 30 MG ONCE ONE 09/20 1000 AC PO 09/20 1001 Prednisone 5 MG DAILY 09/19 1000 CAN PO Prednisone 60 MG DAILY 09/19 1000 CAN PO Prednisone 40 MG ONCE ONE 09/19 1000 DC 09/19 PO 09/19 1001 0915 Tiotropium [place] 1 PUF DAILY 09/19 1000 AC 09/19 INH 0917 Trazodone HCl 200 MG QPM 09/19 2199 AC PO Dose Instructions: (1)Oxycodone HCl: 1-2 TAB Last 24 Hrs of Lab/Esteban Results Last 24 Hrs of Labs/Mics: Laboratory Tests 09/19/16 0505: Anion Gap 8, Estimated GFR > 60, BUN/Creatinine Ratio 15.7, Magnesium 1.6, Lactate Dehydrogenase 544, Troponin I 0.02, CBC w Diff MAN DIFF ORDERED, RBC 3.49 L, MCV 80.0, MCH 25.8 L, RDW 17.4 H, MPV 7.6, Gran % 85.2 H, Lymphocytes % 14.1 L, Monocytes % 0.5 L, Eosinophils % 0.2, Basophils % 0 L, Absolute Granulocytes 4.8, Segmented Neutrophils 82 H, Band Neutrophils 4, Absolute Lymphocytes 0.8 L, Lymphocytes 12 L, Monocytes 2, Absolute Monocytes 0 L, Absolute Eosinophils 0, Absolute Basophils 0, Platelet Estimate ADEQUATE, Polychromasia 1+, Hypochromic-Microcytic 2+, Poikilocytosis 1+, Anisocytosis 1+, Target Cells RARE, Stomatocytes RARE, [place] Cells 1+, Schistocytes RARE, PUBS MCHC 32.2 L, Retic Count 2.39 H, Fld Total RBCs Counted 100 09/19/16 0405: Urine Color STRAW, Urine Clarity CLEAR, Urine pH 7.0, Ur Specific [place] 1.010, Urine Protein NEG, Urine Ketones NEG, Urine Nitrite NEG, Urine Bilirubin NEG, Urine Urobilinogen 0.2, Ur Leukocyte Esterase NEG, Ur Microscopic SEDIMENT EXAMINED, Urine RBC 1-3, Ur Epithelial Cells RARE, Urine Hemoglobin TRACE-LYSED H, Urine Glucose 250 H 09/18/16 2206: Troponin I 0.02 09/18/16 2113: Lactic Acid Cancelled 09/18/16 185: Anion Gap 8, Estimated GFR > 60, BUN/Creatinine Ratio 15.7, Glucose 201 H, Lactic Acid 1.8, Calcium 8.9, Iron 20 L, TIBC 315, Ferritin 66.1, Total Bilirubin 1.1, AST 16 L, ALT 24, Alkaline Phosphatase 70, Troponin I 0.02, Pro- B-Natriuretic Pept 2700 H, Total Protein 6.2 L, Albumin 3.0 L, Globulin 3.2, Albumin/Globulin Ratio 0.9 L, CBC w Diff NO MAN DIFF REQ, RBC 3.26 L, MCV 80.0 , MCH 25.8 L, RDW 17.7 H, MPV 7.2 L, Gran % 81.1 H, Lymphocytes % 12.0 L, Monocytes % 5.7, Eosinophils % 0.8, Basophils % 0.4, Absolute Granulocytes 4.4, Absolute Lymphocytes 0.7 L, Absolute Monocytes 0.3, Absolute Eosinophils 0, Absolute Basophils 0, PUBS MCHC 32.3 L, Digoxin < 0.4 L Microbiology 09/18 2214 LOWER RESP: Respiratory Culture - RES 09/18 2214 LOWER RESP: Gram Stain - RES 09/18 1925 NASOPHARYN: Influenza Virus A & B Rapid Smear - COMP 09/18 1907 BLOOD: Blood Culture - RES 09/18 1854 BLOOD: Blood Culture - RES Orders Radiology Findings: CXR: IMPRESSION: Imaging findings are again suggestive of congestive heart failure with interstitial pulmonary edema that is slightly improved in comparison to the previous study. Decreased size of a small left pleural effusion. Superimposed pneumonia is not excluded. Assessment/Plan Assessment: Mr. Palacios is a pleasant 81 year old male with PMH atrial fibrillation on Eliquis, COPD on 2 L home O2 and indefinite steroids, hyperlipidemia, HFpEF, hypertension and tachy-matty syndrome status post permanent pacemaker who presented with chief complaint of shortness of breath. Patient has a home oximeter and noted decreased O2 saturation to 84%, requiring him to increase home O2 via NC to 3 L. In the ED: Vital signs showed T 98.2, HR 118, RR 18, BP 149/79 and O2 sat 94% on 4L NC. Labs showed WBC 5.5, H&H 8.4/26.1, Plt 222, Na 137, K 3.7, Cl 94, HCO3 34 , BUN 11, cre 0.7, glu 201, lactic acid 1.8, troponin 0.02 and dig <0.4. CXR was done and showed interstitial pulmonary edema with small left pleural effusion. EKG showed HR 103, NJ 140, QRS 110, paced rhythm. Patient is admitted to the telemetry floor and the following is the management: 1. Acute on chronic diastolic CHF * Continuous telemetry monitoring * 40 mg IV lasix daily for diuresis, close monitoring of Is&Os with daily weights * Cardio consult with Dr. Lora appreciated, he suggested persantine nuclear stress test on Saturday, patient to be made NPO night * CHF diet 2. COPD, no acute exacerbation * Though patient had wheezing on presentation, no overt wheezing appreciated today * We will continue with rapid steroid taper as recommended by pulmonology service (40 mg x 1 day, 30 mg x 1 day, 20 mg x 1 day, 10 mg x 1 day then continue on home 5 mg prednisone daily) * Continue to follow pulm recommendations * Continue home inhalers, TRC nebs as needed 3. History of CAD, HTN * Continue nitro, diltiazem, ASA 81 mg PO daily * Continue eliquis * Vital signs Q shift 4. Atrial fibrillation s/p PPM implantation * Continue cardizem for rate control * Anticoagulation with eliquis 5. Acute anemia * H&H slightly below baseline on presentation, no active bleeding noted * Fe panel checked and only abnormality noted was low Fe * We have started ferrous sulfate daily * Repeat CBC on Sat to monitor 6. Chronic pain * Continue home oxycodone and OxyContin * Continue trazodone 20 mg by mouth every night * Continue Ativan 2 mg at night 7. BPH * Continue Proscar 5 mg by mouth daily * Continue Cardura 4 mg by mouth daily FULL CODE DVTP: Eliquis CHF diet Mild pain pathways Problem List: 1. CHF exacerbation 2. (HFpEF) heart failure with preserved ejection fraction 3. Elevated troponin 4. Atrial fibrillation Pain Ratin Pain Location: n/a Pain Goal: Remain pain free Pain Plan: Mild pain pathway Tomorrow's Labs & Rationales: BEP (monitor electrolytes in setting of aggressive IV diuresis) LOIS HOPPER MD 09/19/16 1548: Attending MD Review Statement Attending Statement Attending MD Statement: examined this patient, discuss w/resident/PA/COMPRESSOR MECHANIC, agreed w/resident/PA/COMPRESSOR MECHANIC, discussed with family, reviewed EMR data (avail), discussed with nursing, discussed with case mgmt, amended to note Attending Assessment/Plan: Patient seen and examined. Currently resting comfortably and not in acute distress. He reports feeling better. Denies chest pain. Denies shortness of breath. No events on telemetry overnight. On examination heart sounds are regular, mildly tachycardic. Lungs are clear to auscultation bilaterally. No pedal edema. Problems: 1. Acute on chronic hypoxic respiratory failure. 2. Above is likely secondary to acute on chronic diastolic heart failure in the setting of advanced COPD. 3. Sick sinus syndrome status post pacemaker placement. 4. Atrial fibrillation on anticoagulation 5. Coronary artery disease 6. Chronic anemia 7. Chronic pain syndrome. Plan: -Patient reports feeling better. Continue diuresis with Lasix 40 mg IV daily. Monitor daily weights and input output closely. -Case discussed with his value stream coach. Recommendations for patient to undergo Persantine nuclear stress test this Saturday. Procedure was initially scheduled for outpatient however patient has had recurrent hospitalizations and has delayed this procedure. -Continue Cardizem for rate control. Continue anticoagulation with Apixaban. -Taper steroids as recommended by the pulmonary service. Does not appear to have acute exacerbation of COPD presently. He was reported to be wheezing yesterday. -His hemoglobin level is slightly reduced compared to his last discharge however it has been stable overnight. We'll repeat CBC on Saturday. No need for repeat chemistry tomorrow. -Please continue his home bowel regimen as patient easily develops opioid- induced constipation.
[2016-09-19 08:00] VITALS: BP 130/70
--- NOTE | 2016-09-19 08:48 | Cons- Pulmonary ---
See Addendum WOLFGANG WIGGINS,[facility] 09/19/16 0848: General Information and HPI History of Present Illness: This is an 81-year-old gentleman with past medical history significant for A. fib on Eliquis, COPD on 2 L o2 and prednisone, hyperlipidemia, CHF, hypertension , sick sinus syndrome status post permanent pacemaker. Patient was admitted on 09/18/16 with chief complaint of shortness of breath. Patient was seen and examined this morning. He has baseline of shortness of breath on 2 L home oxygen and productive cough of clear sputum. he reported 3 days history of progressive shortness of breath despite being on oxygen, SOB on rest and exertion with associated difficulty sleeping, nebulizers helped a little, he endorsed feeling sleepy and tired the whole time because of SOB. He denied chest pain, palpitation, dizziness, diaphoresis, orthopnea, paroxysmal nocturnal dyspnea. He also reported productive cough of brownish sputum, he mentioned that he had 2 times of blood sticks with sputum yesterday. He denied night sweats, poor appetite, weight changes. Review consistent was negative for headache, dizziness, visual changes, abdominal pain, nausea or vomiting, change in bowel habits, urinary symptoms, muscle or joint pain. Allergies/Medications Allergies: Coded Allergies: NO KNOWN ALLERGIES (05/30/16) Home Med List: Albuterol Sulfate 2.5 MG/3 ML (0.083 %) VIAL.NEB 1 Vial INH/JENNY Q4P PRN SOB ( Reported) Apixaban (Eliquis) 5 MG TABLET 1 TAB PO BID BLOOD THINNER (Reported) Aspirin (Children's Aspirin) 81 MG TAB.CHEW 1 TAB PO QPM HEART (Reported) Atorvastatin Calcium (Lipitor) 40 MG TABLET 1 TAB PO DAILY CHOLESTEROL ( Reported) Bisacodyl (Dulcolax) 10 MG SUPP.RECT 1 SUP RC EOD SEVERE CONSTIPATION ( Reported) Diltiazem HCl (Diltiazem 12HR ER) 90 MG CAP.ER.12H 1 CAP PO TID A FIB ( Reported) Docusate Sodium (Colace) 100 MG CAPSULE 2 CAP PO BID CONSTIPATION (Reported) Doxazosin Mesylate (Cardura) 4 MG TABLET 1 TAB PO QAM BP/PROSTATE (Reported) Doxazosin Mesylate 2 MG TABLET 1 TAB PO QPM BP/PROSTATE (Reported) Finasteride 5 MG TABLET 1 TAB PO DAILY PROSTATE (Reported) Fluticasone Propionate (Flovent Hfa) 220 MCG AER.W.ADAP 2 PUFF INH BID COPD/ ASTHMA (Reported) Fluticasone Propionate (Flonase Allergy Relief) 50 MCG/ACTUATION SPRAY.SUSP 2 SPRAY NASB QHS ALLERGIES (Reported) Furosemide 20 MG TABLET 1 TAB PO DAILY DIURETIC (Reported) Glycerin (Suppository) ADULT SUPP.RECT 1 SUPP ID EOD SEVERE CONSTIPATION ( Reported) Ipratropium/Albuterol Sulfate (Iprat-Albut 0.5-3(2.5) MG/3 Ml) (Unknown Strength ) AMPUL.NEB 1 VIAL INH TID COPD (Reported) Lactulose 10 GRAM/15 ML SOLUTION 30 ML PO PRN CONSTIPATION (Reported) Lorazepam 2 MG TABLET 1 TAB PO QPM ANXIETY (Reported) Per daughter, dose reduced to 1 mg. Multivit-Min/FA/Lycopen/Lutein (Centrum Silver Men Tablet) 300 MCG-600 MCG-300 MCG TABLET 1 TAB PO DAILY SUPPLEMENT (Reported) Nitroglycerin (Nitro-Dur) 0.4 MG/HOUR PATCH.TD24 1 PATCH TOP DAILY CHEST PAIN APPLY FOR 12 HOURS EVERYDAY Oxycodone HCl (Oxycontin) 40 MG TAB.ER.12H 1 TAB PO BID PAIN (Reported) Oxycodone HCl (Oxycontin) 20 MG TAB.ER.12H 1 TAB PO BID PAIN (Reported) PT TAKES 60MG TOTAL BID Oxycodone HCl (Roxicodone) 30 MG TABLET 1-2 TAB PO Q4P PRN pain (Reported) Pantoprazole Sodium 40 MG TABLET.DR 1 TAB PO DAILY GERD (Reported) Polyethylene Glycol 3350 17 GRAM/DOSE POWDER 17 GM PO DAILY GI (Reported) Potassium Chloride 10 MEQ TAB.ER.PRT 1 TAB PO DAILY SUPPLEMENT (Reported) Prednisone 5 MG TABLET 1 TAB PO DAILY COPD (Reported) Tiotropium [place] (Spiriva) 18 MCG CAP.W.DEV 1 CAP INH DAILY COPD (Reported) Trazodone HCl 100 MG TABLET 2 TAB PO QPM anxiety/sleep (Reported) Review of Systems Review of Systems Constitutional: Reports: see HPI. Past History Travel History Traveled to [place] past 21 day No Medical History Blood Transfusion Hx: No Neurological: TIA EENT: NONE Cardiovascular: AFIB, CAD, hypertension, hyperlipidemia, myocardial infarction Respiratory: COPD, emphysema, pneumonia Gastrointestinal: hiatal hernia, pancreatitis, peptic ulcer disease Hepatic: NONE Renal: NONE Musculoskeletal: disk herniation, spinal stenosis Psychiatric: NONE Endocrine: BORDERLINE DM Blood Disorders: NONE Cancer(s): NONE [employer]ING/Reproductive: NONE Surgical History Surgical History: CABG, knee replacement (left), laminectomy, PACEMAKER Family History Relations & Conditions If Any: FATHER FH: myocardial infarction Psychosocial History Where Do You Live? Home Who Do You Live With? spouse Services at Home: Home Health Aide Primary Language: Swedish Smoking Status: Former Smoker Functional Ability ADLs Independent: dressing, eating, toileting, bathing. Ambulation: walker IADLs Needs Assist: shopping, housework, finances, food prep, telephone, transportation, medication admin. Exam & Diagnostic Data Last 24 Hrs of Vital Signs/I&O Vital Signs Date Time Temp Pulse Resp B/P Pulse O2 O2 Flow FiO2 Ox Delivery Rate 09/19 1117 Nasal 3.0L Cannula 09/19 0800 Nasal 3.0L Cannula 09/19 0800 97.8 64 20 130/70 94 Nasal Cannula 09/19 0000 Nasal 3.0L Cannula 09/18 2308 98.2 68 22 140/70 93 Nasal 3.0L Cannula 09/18 2259 93 Nasal 3.0L Cannula 09/18 2132 96 18 133/71 95 Room Air 09/18 2100 98.7 92 20 116/61 93 Nasal 3.0L Cannula 09/18 2044 94 Nasal 3.0L Cannula 09/18 1950 93 Nasal 3.0L Cannula 09/18 1936 98.9 85 18 135/65 93 Nasal 3.0L Cannula 09/18 1733 98.2 118 18 149/79 94 Nasal 4.0L Cannula Intake & Output 09/19 1600 09/19 0800 09/19 0000 Intake Total 60 0 Output Total 500 1225 Balance -440 -1225 Intake, IV 10 Intake, Oral 50 0 Output, Urine 500 1225 Patient 95.708 kg Weight Physical Exam General Appearance: well developed/nourished, no apparent distress, alert, awake , comfortable Head: atraumatic, normal appearance Eyes: Bilateral: normal appearance, PERRL, EOMI. Ears, Nose, Throat: normal ENT inspection Neck: normal inspection, supple Respiratory: normal breath sounds, lungs clear Cardiovascular: irregularly irregular Gastrointestinal: normal bowel sounds, soft, non-tender Extremities: normal inspection, normal capillary refill, normal range of motion, Bilateral +1 pedal edema Neurologic/Psych: no motor/sensory deficits, awake, alert, oriented x 3 Assessment/Plan Impression/Plan: This is an 81-year-old gentleman with past medical history significant for A. fib on Eliquis, COPD on 2 L o2 and prednisone, hyperlipidemia, diastolic CHF, hypertension, sick sinus syndrome status post permanent pacemaker. Patient was admitted on 09/18/16 with chief complaint of shortness of breath. Patient was admitted to telemetry floor for shortness of breath that could be COPD exacerbation versus diastolic CHF exacerbation. Patient continued to be afebrile, vital signs are stable respiratory rate 20 on 3 L oxygen with saturation 94%. Labs didn't show any leukocytosis, ABG pH 7.49, PCO2 39, PaO2 75, bicarbonate 29 Chest x-ray on admission was suggestive for congestive heart failure with interstitial pulmonary edema and small left pleural effusion. Problems -COPD on 2 L home oxygen and chronic prednisone -Hyperlipidemia and hypertension -Diastolic congestive heart failure with ejection fraction 60%, elevated right ventricular systolic pressure 46 mmhg -Atrial fibrillation on Eliquis -Sick sinus syndrome status post permanent pacemaker Plan -Patient received 1 dose of IV Solu-Medrol on admission, was switched to oral prednisone 40 mg by mouth once, continue tapering 301-201, 101, and continue the home dose prednisone 5 mg by mouth daily -Continue TRC nebulizers and inhalers spiriva, fluticasone -Repeat CMP and replete potassium and magnesium as needed -Continue nasal cannula 3 L and titrate as tolerated, keep oxygen saturation more than 92% -PT evaluation -DVT prophylaxis Eliquis Consult Acknowledgment - Thank you for your consult request. PHIL WIGGINS,Torri BARKLEY 09/19/16 1032: General Information and HPI Consulting Request Date of Consult: 09/19/16 Requested By: Dr. Chandra Reason for Consult: Dyspnea Source of Information: patient, family, old records Exam Limitations: no limitations Allergies/Medications Current Medications: Current Medications Sig/Satish Start time Last Medication Dose Route Stop Time Status Admin Albuterol Sulfate 3 ML TID 09/19 1000 AC 09/19 INH 0955 Albuterol Sulfate 3 ML ONCE ONE 09/18 181 DC 09/18 INH 09/18 181 1950 Apixaban 5 MG BID 09/18 2200 AC 09/19 PO 0915 Aspirin 81 MG QPM 09/18 2200 AC 09/18 PO 2209 Aspirin 0 .STK-MED ONE 09/18 2153 DC PO Atorvastatin Calcium 40 MG 1700 09/19 1700 AC PO Diltiazem HCl 90 MG TID 09/18 2230 AC 09/19 PO 0915 Doxazosin Mesylate 4 MG DAILY 09/19 1000 AC 09/19 PO 0916 Doxazosin Mesylate 2 MG QPM 09/18 2230 AC 09/19 PO 0004 Finasteride 5 MG DAILY 09/19 1000 AC 09/19 PO 0916 Fluticasone 2 PUF BID 09/180 AC Propionate INH Furosemide 40 MG DAILY 09/19 1000 AC 09/19 IV 0916 Furosemide 0 .STK-MED ONE 09/18 1950 DC IV Furosemide 40 MG ONCE ONE 09/18 1815 DC 09/18 IV 09/18 181 195 Ipratropium [place] 2.5 ML TID 09/19 1000 AC 09/19 INH 0955 Ipratropium [place] 2.5 ML ONCE ONE 09/18 1815 DC 09/18 INH 09/18 181 1950 Lorazepam 2 MG QPM 09/190 AC PO Methylprednisolone 0 .STK-MED ONE 09/18 1950 DC .ROUTE Methylprednisolone 125 MG ONCE ONE 09/18 1815 DC 09/18 IV 09/18 181 1955 Nitroglycerin 0.4 MG DAILY 09/19 1000 AC 09/19 TOP 0916 Omeprazole 40 MG DAILY AC 09/19 0700 AC 09/19 PO 0914 Oxycodone HCl 60 MG BID 09/19 1000 AC 09/19 PO 0914 Oxycodone HCl 40 MG BID 09/19 1000 CAN PO Oxycodone HCl 1 MG Q4P PRN 09/18 2314 DC PO Oxycodone HCl 30 MG Q4P PRN 09/18 2315 AC PO Oxycodone HCl See Dose Q4P PRN 09/18 2229 DC Insts (1) PO Oxycodone HCl 0 .STK-MED ONE 09/18 2207 DC PO Oxycodone HCl 0 .STK-MED ONE 09/18 2205 DC PO Oxycodone HCl 60 MG ONCE ONE 09/185 DC 09/18 PO 09/18 Polyethylene Glycol 17 GM DAILY 09/19 1000 AC 09/19 PO 0916 Prednisone 5 MG DAILY 09/23 1000 AC PO Prednisone 10 MG ONCE ONE 09/22 1000 AC PO 09/22 1001 Prednisone 20 MG ONCE ONE 09/21 1000 AC PO 09/21 1001 Prednisone 30 MG ONCE ONE 09/20 1000 AC PO 09/20 1001 Prednisone 5 MG DAILY 09/19 1000 CAN PO Prednisone 60 MG DAILY 09/19 1000 CAN PO Prednisone 40 MG ONCE ONE 09/19 1000 DC 09/19 PO 09/19 1001 0915 Tiotropium [place] 1 PUF DAILY 09/19 1000 AC 09/19 INH 0917 Trazodone HCl 200 MG QPM 09/19 2200 AC PO Dose Instructions: (1)Oxycodone HCl: 1-2 TAB Exam & Diagnostic Data Last 24 Hrs of Vital Signs/I&O Vital Signs Date Time Temp Pulse Resp B/P Pulse O2 O2 Flow FiO2 Ox Delivery Rate 09/19 0800 97.8 64 20 130/70 94 Nasal Cannula 09/19 0000 Nasal 3.0L Cannula 09/18 2308 98.2 68 22 140/70 93 Nasal 3.0L Cannula 09/18 2259 93 Nasal 3.0L Cannula 09/18 2132 96 18 133/71 95 Room Air 09/18 2100 98.7 92 20 116/61 93 Nasal 3.0L Cannula 09/18 2044 94 Nasal 3.0L Cannula 09/18 1950 93 Nasal 3.0L Cannula 09/18 1936 98.9 85 18 135/65 93 Nasal 3.0L Cannula 09/18 1733 98.2 118 18 149/79 94 Nasal 4.0L Cannula Intake & Output 09/19 1600 09/19 0800 09/19 0000 Intake Total 60 0 Output Total 500 1225 Balance -440 -1225 Intake, IV 10 Intake, Oral 50 0 Output, Urine 500 1225 Patient 211 lb Weight Last 48 Hrs of Labs/Esteban: Laboratory Tests 09/19/16 0505: Anion Gap 8, Estimated GFR > 60, BUN/Creatinine Ratio 15.7, Magnesium 1.6, Lactate Dehydrogenase 544, Troponin I 0.02, CBC w Diff MAN DIFF ORDERED, RBC 3.49 L, MCV 80.0, MCH 25.8 L, RDW 17.4 H, MPV 7.6, Gran % 85.2 H, Lymphocytes % 14.1 L, Monocytes % 0.5 L, Eosinophils % 0.2, Basophils % 0 L, Absolute Granulocytes 4.8, Segmented Neutrophils 82 H, Band Neutrophils 4, Absolute Lymphocytes 0.8 L, Lymphocytes 12 L, Monocytes 2, Absolute Monocytes 0 L, Absolute Eosinophils 0, Absolute Basophils 0, Platelet Estimate ADEQUATE, Polychromasia 1+, Hypochromic-Microcytic 2+, Poikilocytosis 1+, Anisocytosis 1+, Target Cells RARE, Stomatocytes RARE, Howe Cells 1+, Schistocytes RARE, PUBS MCHC 32.2 L, Retic Count 2.39 H, Fld Total RBCs Counted 100 09/19/16 0405: Urine Color STRAW, Urine Clarity CLEAR, Urine pH 7.0, Ur Specific [place] 1.010, Urine Protein NEG, Urine Ketones NEG, Urine Nitrite NEG, Urine Bilirubin NEG, Urine Urobilinogen 0.2, Ur Leukocyte Esterase NEG, Ur Microscopic SEDIMENT EXAMINED, Urine RBC 1-3, Ur Epithelial Cells RARE, Urine Hemoglobin TRACE-LYSED H, Urine Glucose 250 H 09/18/16 2206: Troponin I 0.02 09/18/16 2113: Lactic Acid Cancelled 09/18/16 1855: Anion Gap 8, Estimated GFR > 60, BUN/Creatinine Ratio 15.7, Glucose 201 H, Lactic Acid 1.8, Calcium 8.9, Iron 20 L, TIBC 315, Ferritin 66.1, Total Bilirubin 1.1, AST 16 L, ALT 24, Alkaline Phosphatase 70, Troponin I 0.02, Pro- B-Natriuretic Pept 2700 H, Total Protein 6.2 L, Albumin 3.0 L, Globulin 3.2, Albumin/Globulin Ratio 0.9 L, CBC w Diff NO MAN DIFF REQ, RBC 3.26 L, MCV 80.0 , MCH 25.8 L, RDW 17.7 H, MPV 7.2 L, Gran % 81.1 H, Lymphocytes % 12.0 L, Monocytes % 5.7, Eosinophils % 0.8, Basophils % 0.4, Absolute Granulocytes 4.4, Absolute Lymphocytes 0.7 L, Absolute Monocytes 0.3, Absolute Eosinophils 0, Absolute Basophils 0, PUBS MCHC 32.3 L, Digoxin < 0.4 L Microbiology 09/18 1925 NASOPHARYN: Influenza Virus A & B Rapid Smear - COMP Assessment/Plan Other Findings/Comments: I have evaluated the patient and agree with the resident's assessment as above. The patient is an 81 year old male well-known to me from previous outpatient visits and inpatient hospitalizations. He has a history significant for CAD status post CABG over 12 years ago, chronic atrial fibrillation on Eliquis, diastolic heart failure, aspiration pneumonia, chronic back infection (see off antibiotics due to side effects and lack of active infection) and COPD with chronic respiratory failure on supplemental oxygen and prednisone. The patient was brought to the emergency department after he was found to have increased dyspnea on exertion in association with a cough productive of a small amount of brownish sputum. The patient's oxygen saturation on 2 L nasal cannula with 84%. This came up to 94% on 3.5 L nasal cannula. There is no report of fevers, chills, chest pain or increased wheezing. He has been compliant with his inhaler therapy. He is also been compliant with his diuretics however the patient's lower extremity edema has increased over the past several days. The patient was evaluated in the ED and found to have increased shortness of breath. A chest x-ray showed interstitial pulmonary edema and a decreased small left pleural effusion. Superimposed pneumonia was not said to be excluded. The patient was admitted, placed on telemetry, started on diuresis, nebulizer treatments/TRC. He is being monitored off antibiotics. He continues on stress dose steroids which are to be tapered rapidly. The patient reports feeling improved this morning. We will continue with the current plan. I will discuss the case with Dr. Lora who also knows the patient very well. Thank you for the consult. Consult Acknowledgment - Thank you for your consult request.
--- NOTE | 2016-09-19 13:00 | Cons- Cardiology ---
General Information and HPI Consulting Request Date of Consult: 09/19/16 Requested By: LOIS HOPPER M.D Reason for Consult: Worsening shortness of breath with evidence of diastolic heart failure and exacerbation of underlying pulmonary disease Source of Information: patient, family History of Present Illness: This is an 81-year-old gentleman with past medical history significant for A. fib on Eliquis, COPD on 2 L o2 and indefinite steroids, hyperlipidemia, CHF, hypertension, tachy-matty syndrome status post permanent pacemaker who came in with CC of shortness of breath. Patient is predominantly Albanian speaking so most of the history is obtained from his daughters in the room. Per daughter, this a.m. when she called, her father he seemed to be short of breath above his baseline. She had them check the pulse ox and he had saturation of 84%. Patient then increased the O2 to to 3.5 L and subsequently his saturations came up to 94%. His daughter was concerned that even short distance ambulation was causing increased shortness of breath. She called the COPD/CHF clinic but they were closed by 1:30 PM. As such, the daughter brought patient to [facility] for further workup. Patient does endorse some increased sputum. Per daughter she noticed some blood in dark sputum today. Allergies/Medications Allergies: Coded Allergies: NO KNOWN ALLERGIES (05/30/16) Home Med List: Albuterol Sulfate 2.5 MG/3 ML (0.083 %) VIAL.NEB 1 Vial INH/JENNY Q4P PRN SOB ( Reported) Apixaban (Eliquis) 5 MG TABLET 1 TAB PO BID BLOOD THINNER (Reported) Aspirin (Children's Aspirin) 81 MG TAB.CHEW 1 TAB PO QPM HEART (Reported) Atorvastatin Calcium (Lipitor) 40 MG TABLET 1 TAB PO DAILY CHOLESTEROL ( Reported) Bisacodyl (Dulcolax) 10 MG SUPP.RECT 1 SUP RC EOD SEVERE CONSTIPATION ( Reported) Diltiazem HCl 90 MG TABLET 90 MG PO Q6 Atrial fibrillation Docusate Sodium (Colace) 100 MG CAPSULE 2 CAP PO BID CONSTIPATION (Reported) Doxazosin Mesylate (Cardura) 4 MG TABLET 1 TAB PO QAM BP/PROSTATE (Reported) Doxazosin Mesylate 2 MG TABLET 1 TAB PO QPM BP/PROSTATE (Reported) Ferrous Sulfate 325 MG (65 MG IRON) TABLET 1 TAB PO DAILY Supplement Finasteride 5 MG TABLET 1 TAB PO DAILY PROSTATE (Reported) Fluticasone Propionate (Flovent Hfa) 220 MCG AER.W.ADAP 2 PUFF INH BID COPD/ ASTHMA (Reported) Fluticasone Propionate (Flonase Allergy Relief) 50 MCG/ACTUATION SPRAY.SUSP 2 SPRAY NASB QHS ALLERGIES (Reported) Furosemide (Lasix) 40 MG TABLET 40 MG PO DAILY Diuretic Glycerin (Suppository) ADULT SUPP.RECT 1 SUPP MI EOD SEVERE CONSTIPATION ( Reported) Ipratropium/Albuterol Sulfate (Iprat-Albut 0.5-3(2.5) MG/3 Ml) (Unknown Strength ) AMPUL.NEB 1 VIAL INH TID COPD (Reported) Lactulose 10 GRAM/15 ML SOLUTION 30 ML PO DAILY PRN CONSTIPATION (Reported) Lorazepam 2 MG TABLET 1 TAB PO QPM ANXIETY (Reported) Per daughter, dose reduced to 1 mg. Metoprolol Tartrate 25 MG TABLET 12.5 MG PO BID HTN Multivit-Min/FA/Lycopen/Lutein (Centrum Silver Men Tablet) 300 MCG-600 MCG-300 MCG TABLET 1 TAB PO DAILY SUPPLEMENT (Reported) Nitroglycerin (Nitro-Dur) 0.4 MG/HOUR PATCH.TD24 1 PATCH TOP DAILY CHEST PAIN APPLY FOR 12 HOURS EVERYDAY Oxycodone HCl (Roxicodone) 30 MG TABLET 1-2 TAB PO Q4P PRN pain (Reported) Oxycodone HCl (Oxycontin) 40 MG TAB.ER.12H 1 TAB PO BID PAIN (Reported) Oxycodone HCl (Oxycontin) 20 MG TAB.ER.12H 1 TAB PO BID PAIN (Reported) PT TAKES 60MG TOTAL BID Pantoprazole Sodium 40 MG TABLET.DR 1 TAB PO DAILY GERD (Reported) Polyethylene Glycol 3350 17 GRAM/DOSE POWDER 17 GM PO DAILY GI (Reported) Potassium Chloride 10 MEQ TAB.ER.PRT 1 TAB PO DAILY SUPPLEMENT (Reported) Prednisone 5 MG TABLET 1 TAB PO DAILY COPD (Reported) Tiotropium [place] (Spiriva) 18 MCG CAP.W.DEV 1 CAP INH DAILY COPD (Reported) Trazodone HCl 100 MG TABLET 2 TAB PO QPM anxiety/sleep (Reported) Current Medications: Current Medications Sig/Satish Start time Last Medication Dose Route Stop Time Status Admin Albuterol Sulfate 3 ML TID 09/19 1000 AC 09/19 INH 0955 Albuterol Sulfate 3 ML ONCE ONE 09/18 1815 DC 09/18 INH 09/18 1816 1950 Apixaban 5 MG BID 09/18 2200 AC 09/19 PO 0915 Aspirin 81 MG QPM 09/18 2200 AC 09/18 PO 2209 Aspirin 0 .STK-MED ONE 09/18 2153 DC PO Atorvastatin Calcium 40 MG 1700 09/19 1700 AC PO Bisacodyl 10 MG ONCE ONE 09/19 1145 DC 09/19 MI 09/19 1146 1157 Diltiazem HCl 90 MG TID 09/18 2230 AC 09/19 PO 0915 Doxazosin Mesylate 4 MG DAILY 09/19 1000 AC 09/19 PO 0916 Doxazosin Mesylate 2 MG QPM 09/18 2230 AC 09/19 PO 0004 Finasteride 5 MG DAILY 09/19 1000 AC 09/19 PO 0916 Fluticasone 2 PUF BID 09/18 2200 AC 09/19 Propionate INH 1212 Furosemide 40 MG DAILY 09/19 1000 AC 09/19 IV 0916 Furosemide 0 .STK-MED ONE 09/18 1950 DC IV Furosemide 40 MG ONCE ONE 09/18 1815 DC 09/18 IV 09/18 1816 1955 Ipratropium [place] 2.5 ML TID 09/19 1000 AC 09/19 INH 0955 Ipratropium [place] 2.5 ML ONCE ONE 09/18 1815 DC 09/18 INH 09/18 1816 1950 Lorazepam 2 MG QPM 09/190 AC PO Methylprednisolone 0 .STK-MED ONE 09/18 1950 DC .ROUTE Methylprednisolone 125 MG ONCE ONE 09/18 1815 DC 09/18 IV 09/18 1816 1955 Nitroglycerin 0.4 MG DAILY 09/19 1000 DC 09/19 TOP 0916 Omeprazole 40 MG DAILY AC 09/19 0700 AC 09/19 PO 0914 Oxycodone HCl 60 MG BID 09/19 1000 AC 09/19 PO 0914 Oxycodone HCl 40 MG BID 09/19 1000 CAN PO Oxycodone HCl 1 MG Q4P PRN 09/185 DC PO Oxycodone HCl 30 MG Q4P PRN 09/18 2315 AC PO Oxycodone HCl See Dose Q4P PRN 09/18 2230 DC Insts (1) PO Oxycodone HCl 0 .STK-MED ONE 09/18 2207 DC PO Oxycodone HCl 0 .STK-MED ONE 09/18 2205 DC PO Oxycodone HCl 60 MG ONCE ONE 09/18 2144 DC 09/18 PO 09/18 Polyethylene Glycol 17 GM DAILY 09/19 1000 AC 09/19 PO 0916 Prednisone 5 MG DAILY 09/23 1000 AC PO Prednisone 10 MG ONCE ONE 09/22 1000 AC PO 09/22 1001 Prednisone 20 MG ONCE ONE 09/21 1000 AC PO 09/21 1001 Prednisone 30 MG ONCE ONE 09/20 1000 AC PO 09/20 1001 Prednisone 5 MG DAILY 09/19 1000 CAN PO Prednisone 60 MG DAILY 09/19 1000 CAN PO Prednisone 40 MG ONCE ONE 09/19 1000 DC 09/19 PO 09/19 1001 0915 Tiotropium [place] 1 PUF DAILY 09/19 1000 AC 09/19 INH 0917 Trazodone HCl 200 MG QPM 09/19 2199 AC PO Dose Instructions: (1)Oxycodone HCl: 1-2 TAB Past History Travel History Traveled to [place] past 21 day No Medical History Blood Transfusion Hx: No Neurological: TIA EENT: NONE Cardiovascular: AFIB, CAD, hypertension, hyperlipidemia, myocardial infarction Respiratory: COPD, emphysema, pneumonia Gastrointestinal: hiatal hernia, pancreatitis, peptic ulcer disease Hepatic: NONE Renal: NONE Musculoskeletal: disk herniation, spinal stenosis Psychiatric: NONE Endocrine: BORDERLINE DM Blood Disorders: NONE Cancer(s): NONE ICT CUSTOMER SUPPORT OFFICER/Reproductive: NONE Surgical History Surgical History: CABG, knee replacement (left), laminectomy, PACEMAKER Family History Relations & Conditions If Any: FATHER FH: myocardial infarction Psychosocial History Where Do You Live? Home Who Do You Live With? spouse Services at Home: Home Health Aide Primary Language: Albanian Smoking Status: Former Smoker Functional Ability ADLs Independent: dressing, eating, toileting, bathing. Ambulation: walker IADLs Needs Assist: shopping, housework, finances, food prep, telephone, transportation, medication admin. Exam & Diagnostic Data Vital Signs and I&O Vital Signs Date Time Temp Pulse Resp B/P Pulse O2 O2 Flow FiO2 Ox Delivery Rate 09/19 1117 Nasal 3.0L Cannula 09/19 0800 Nasal 3.0L Cannula 09/19 0800 97.8 64 20 130/70 94 Nasal Cannula 09/19 0000 Nasal 3.0L Cannula 09/18 2308 98.2 68 22 140/70 93 Nasal 3.0L Cannula 09/18 2259 93 Nasal 3.0L Cannula 09/18 2132 96 18 133/71 95 Room Air 09/18 2100 98.7 92 20 116/61 93 Nasal 3.0L Cannula 09/18 2044 94 Nasal 3.0L Cannula 09/18 1950 93 Nasal 3.0L Cannula 09/18 1936 98.9 85 18 135/65 93 Nasal 3.0L Cannula 09/18 1733 98.2 118 18 149/79 94 Nasal 4.0L Cannula Intake & Output 09/19 1600 09/19 0800 09/19 0000 09/18 1600 09/18 0800 09/18 0000 Intake Total 60 0 Output Total 500 1225 Balance -440 -1225 Intake, IV 10 Intake, Oral 50 0 Output, Urine 500 1225 Patient 211 lb Weight Physical Exam: General Appearance Alert, Oriented X3, Cooperative, No Acute Distress Skin No Rashes, No Breakdown HEENT Atraumatic, PERRLA, EOMI Neck Supple, JVP normal; carotids normal bilaterally Cardiovascular irreg irregular, 2/6 systolic murmur Lungs crackles and expiratory wheezes throughout Abdomen Soft, No Tenderness Neurological Normal Speech Extremities No Clubbing, No Cyanosis, 2+ EDEMA Labs/Esteban Results: Laboratory Tests 09/19 09/19 0505 0405 Chemistry Sodium (137 - 145 mmol/L) 137 Potassium (3.5 - 5.1 mmol/L) 3.7 Chloride (98 - 107 mmol/L) 92 L Carbon Dioxide (22 - 30 mmol/L) 37 H Anion Gap (5 - 16) 8 BUN (9 - 20 mg/dL) 11 Creatinine (0.7 - 1.2 mg/dL) 0.7 Estimated GFR (>60 ml/min) > 60 BUN/Creatinine Ratio (7 - 25 %) 15.7 Magnesium (1.6 - 2.3 mg/dL) 1.6 Lactate Dehydrogenase (313 - 618 U/L) 544 Troponin I (<0.11 ng/ml) 0.02 Hematology CBC w Diff MAN DIFF ORDERED WBC (4.8 - 10.8 /CUMM) 5.6 RBC (4.70 - 6.10 /CUMM) 3.49 L Hgb (14.0 - 18.0 G/DL) 9.0 L Hct (42 - 52 %) 27.9 L MCV (80.0 - 94.0 FL) 80.0 MCH (27.0 - 31.0 PG) 25.8 L RDW (11.5 - 14.5 %) 17.4 H Plt Count (130 - 400 /CUMM) 211 MPV (7.4 - 10.4 FL) 7.6 Gran % (42.2 - 75.2 %) 85.2 H Lymphocytes % (20.5 - 51.1 %) 14.1 L Monocytes % (1.7 - 9.3 %) 0.5 L Eosinophils % (0 - 5 %) 0.2 Basophils % (0.0 - 2.0 %) 0 L Absolute Granulocytes (1.4 - 6.5 /CUMM) 4.8 Segmented Neutrophils (42.2 - 75.2 %) 82 H Band Neutrophils (0.0 - 5.0 %) 4 Absolute Lymphocytes (1.2 - 3.4 /CUMM) 0.8 L Lymphocytes (20.5 - 51.1 %) 12 L Monocytes (1.7 - 9.3 %) 2 Absolute Monocytes (0.10 - 0.60 /CUMM) 0 L Absolute Eosinophils (0.0 - 0.7 /CUMM) 0 Absolute Basophils (0.0 - 0.2 /CUMM) 0 Platelet Estimate (ADEQUATE) ADEQUATE Polychromasia 1+ Hypochromic-Microcytic 2+ Poikilocytosis 1+ Anisocytosis 1+ Target Cells RARE Stomatocytes RARE Bret Cells 1+ Schistocytes RARE PUBS MCHC (33.0 - 37.0 G/DL) 32.2 L Retic Count (0.5 - 2.0 %) 2.39 H Other Body Source Fld Total RBCs Counted (%) 100 Urines Urine Color (YEL,AMB,STR) STRAW Urine Clarity (CLEAR) CLEAR Urine pH (5.0 - 8.0) 7.0 Ur Specific [place] (1.001 - 1.035) 1.010 Urine Protein (NEG,<30 MG/DL) NEG Urine Ketones (NEG) NEG Urine Nitrite (NEG) NEG Urine Bilirubin (NEG) NEG Urine Urobilinogen (0.1 - 1.0 EU/dl) 0.2 Ur Leukocyte Esterase (NEG) NEG Ur Microscopic SEDIMENT EXAMINED Urine RBC (0 - 5 /HPF) 1-3 Ur Epithelial Cells (NONE,FEW) RARE Urine Hemoglobin (NEG) TRACE-LYSED H Urine Glucose (N MG/DL) 250 H 09/18 09/18 09/18 2206 2113 1855 Chemistry Sodium (137 - 145 mmol/L) 137 Potassium (3.5 - 5.1 mmol/L) 3.7 Chloride (98 - 107 mmol/L) 94 L Carbon Dioxide (22 - 30 mmol/L) 34 H Anion Gap (5 - 16) 8 BUN (9 - 20 mg/dL) 11 Creatinine (0.7 - 1.2 mg/dL) 0.7 Estimated GFR (>60 ml/min) > 60 BUN/Creatinine Ratio (7 - 25 %) 15.7 Glucose (65 - 99 mg/dL) 201 H Lactic Acid (0.7 - 2.1 mmol/L) Cancelled 1.8 Calcium (8.4 - 10.2 mg/dL) 8.9 Iron (49 - 181 ug/dL) 20 L TIBC (261 - 462 ug/dL) 315 Ferritin (17.9 - 464 ng/mL) 66.1 Total Bilirubin (0.2 - 1.3 mg/dL) 1.1 AST (17 - 59 U/L) 16 L ALT (21 - 72 U/L) 24 Alkaline Phosphatase (< 127 U/L) 70 Troponin I (<0.11 ng/ml) 0.02 0.02 Wwi-J-Achsreczffu Pept (<125 pg/mL) 2700 H Total Protein (6.3 - 8.2 g/dL) 6.2 L Albumin (3.5 - 5.0 g/dL) 3.0 L Globulin (1.9 - 4.2 gm/dL) 3.2 Albumin/Globulin Ratio (1.1 - 2.2 %) 0.9 L Hematology CBC w Diff NO MAN DIFF REQ WBC (4.8 - 10.8 /CUMM) 5.5 RBC (4.70 - 6.10 /CUMM) 3.26 L Hgb (14.0 - 18.0 G/DL) 8.4 L Hct (42 - 52 %) 26.1 L MCV (80.0 - 94.0 FL) 80.0 MCH (27.0 - 31.0 PG) 25.8 L RDW (11.5 - 14.5 %) 17.7 H Plt Count (130 - 400 /CUMM) 222 MPV (7.4 - 10.4 FL) 7.2 L Gran % (42.2 - 75.2 %) 81.1 H Lymphocytes % (20.5 - 51.1 %) 12.0 L Monocytes % (1.7 - 9.3 %) 5.7 Eosinophils % (0 - 5 %) 0.8 Basophils % (0.0 - 2.0 %) 0.4 Absolute Granulocytes (1.4 - 6.5 /CUMM) 4.4 Absolute Lymphocytes (1.2 - 3.4 /CUMM) 0.7 L Absolute Monocytes (0.10 - 0.60 /CUMM) 0.3 Absolute Eosinophils (0.0 - 0.7 /CUMM) 0 Absolute Basophils (0.0 - 0.2 /CUMM) 0 PUBS MCHC (33.0 - 37.0 G/DL) 32.3 L Toxicology Digoxin (0.8 - 2.0 ng/mL) < 0.4 L Diagnostic Data CXR Results IMPRESSION: Imaging findings are again suggestive of congestive heart failure with interstitial pulmonary edema that is slightly improved in comparison to the previous study. Decreased size of a small left pleural effusion. Superimposed pneumonia is not excluded. Assessment/Plan Assessment/Plan Assessment: 1. Worsening dyspnea, likely related to underlying pulmonary disease and acute on chronic diastolic heart failure 2. COPD 3. History of coronary artery disease 4. Atrial fibrillation; status post permanent pacemaker 5. History of hypertension Recommendations: -For now, I would monitor the patient on telemetry -IV Lasix for diuresis with close monitoring of intakes, outputs, daily weights -Follow-up laboratories in the morning In follow-up echocardiogram -Please schedule the patient for a Persantine nuclear stress test on Saturday morning. The patient should be kept nothing by mouth after midnight on for this test. Consult Acknowledgment - Thank you for your consult request.
[2016-09-19 16:37] VITALS: BP 144/68
--- NOTE | 2016-09-20 06:41 | ECHOCARDIOGRAM REPORT ---
GUMARO CALI Age: 81 : 1935 Gender: M Exam Date: 09/19/2016 17:12 Exam Location: [address] [place] Ht (in): 71 Wt (lb): 211 BSA: 2.21 BP: 140 / 70 Ordering Physician: SUSIE FLETCHER M Referring Physician: Raul Lora MD Technologist: Taylor Pepe [facility] Room Number: 177 Indications: HEART FAILURE Rhythm: Atrial fibrillation Technical Quality: Fair, Technically difficult study FINDINGS Left Ventricle Normal size left ventricle. No obvious regional wall motion abnormalities. Left ventricular wall thickness increased. Normal left ventricular ejection fraction estimated at 55-60%. Right Ventricle Right ventricle not well visualized, grossly normal. Right Atrium Normal right atrial size. Left Atrium Moderate left atrial dilatation. Mitral Valve Mitral valve thickened. Trace to mild mitral regurgitation. Aortic Valve Trileaflet aortic valve. Diffuse thickening (sclerosis) of the aortic valve cusps without reduced excursion. No aortic stenosis. No aortic regurgitation. Tricuspid Valve Tricuspid valve not well visualized, grossly normal. Trace tricuspid regurgitation. Pulmonic Valve Pulmonic valve not well visualized, grossly normal. Mild pulmonic regurgitation. Pericardium No pericardial effusion. Great Vessels Aortic root and proximal ascending aorta not well visualized, grossly normal. CONCLUSIONS 1. THis was a technically difficult examination. 2. Mild aortic sclerosi is present with no valvular stenosis or insufficiency. 3. Mitral leaflet thickening is present with minimal to mild mitral insufficiency and moderate left atrial enlargement 4. There is no significant pericardial fluid present. 5. THe left ventricular chamber size is normal with mild to moderate concentric hypertrophy and a normal ejection fraction. 6. The right heart structures were not optimally visualized. Minimal to mild tricuspid and pulmonic insufficiency are present. The RV systolic pressure could not be accurately assessed. 7. Pacemaker wires are present in the right heart chambers. Raul Lora M.D. (Electronically Signed) Final Date: 20 September 2016 06:40 MEASUREMENTS (Male / Female) Normal Values 2D ECHO LV Diastolic Diameter PLAX 3.9 cm 4.2 - 5.9 / 3.9 - 5.3 cm LV Systolic Diameter PLAX 2.4 cm 2.1 - 4.0 cm LV Fractional Shortening PLAX 38.5 % 25 - 46 % LV Ejection Fraction 2D Teich 69.4 % IVS Diastolic Thickness 1.6 cm LVPW Diastolic Thickness 1.6 cm LV Relative Wall Thickness 0.8 RV Internal Dim ED PLAX 3.2 cm 1.9 - 3.8 cm LVOT Diameter 2.0 cm Aortic Root Diameter 3.4 cm LA Systolic Diameter LX 4.9 cm 3.0 - 4.0 / 2.7 - 3.8 cm LA Volume 80.0 cm 18 - 58 / 22 - 52 cm Ascending Aorta Diameter 3.1 cm DOPPLER AV Peak Velocity 125.0 cm/s AV Peak Gradient 6.3 mmHg AV Mean Velocity 89.5 cm/s AV Mean Gradient 4.0 mmHg AV Velocity Time Integral 24.2 cm LVOT Peak Velocity 106.0 cm/s LVOT Peak Gradient 4.5 mmHg LVOT Mean Velocity 71.3 cm/s LVOT Mean Gradient 2.0 mmHg LVOT Velocity Time Integral 19.3 cm LVOT Stroke Volume 60.6 cm AV Area Cont Eq vti 2.5 cm AV Area Cont Eq pk 2.7 cm MV Peak Velocity 134.0 cm/s MV Peak Gradient 7.2 mmHg MV Mean Velocity 66.9 cm/s MV Mean Gradient 2.0 mmHg Mitral E Point Velocity 135.0 cm/s MV PHT Velocity 140.0 cm/s MV Deceleration [place] 393.0 cm/s MV Pressure Half Time 106.9 ms MV Area PHT 2.1 cm MV Deceleration Time 162.0 ms TR Peak Velocity 332.0 cm/s TR Peak Gradient 44.1 mmHg Right Atrial Pressure 5.0 mmHg Pulmonary Artery Systolic Pressu 49.1 mmHg Right Ventricular Systolic Press 49.1 mmHg PV Peak Velocity 130.0 cm/s PV Peak Gradient 6.8 mmHg PV Mean Velocity 90.1 cm/s PV Mean Gradient 4.0 mmHg PV Velocity Time Integral 24.9 cm LV E' Lateral Velocity 13.0 cm/s Mitral E to LV E' Lateral Ratio 10.4 LV E' Septal Velocity 7.2 cm/s Mitral E to LV E' Septal Ratio 18.7
--- NOTE | 2016-09-20 06:41 | PN- Housestaff ---
BRIDGETTE EVANS MD 09/20/16 0641: Subjective Follow-up For: Shortness of breath CHF exacerbation COPD Atrial fibrillation Tele-Events Since Last Visit: Atrial fibrillation, HR 79-97, PVCs, HR increasing periodically to the 150s. Subjective: Patient seen and examined at bedside this AM. He is receiving a nebulizer treatment and reports his respiratory status has improved from yesterday. He currently denies chest pain, orthopnea or weakness. Review of Systems Constitutional: Denies: chills, fever. EENTM: Denies: blurred vision, nasal congestion. Cardiovascular: Reports: peripheral edema. Denies: chest pain, palpitations. Respiratory: Reports: cough, short of breath, sputum production. Gastrointestinal: Denies: abdominal pain, nausea. Genitourinary: Denies: dysuria. Musculoskeletal: Denies: back pain. Skin: Denies: rash. Neurological/Psychological: Denies: confusion, headache. Hematologic/Endocrine: Denies: bruising, bleeding. Objective Last 24 Hrs of Vital Signs/I&O Vital Signs Date Time Temp Pulse Resp B/P Pulse O2 O2 Flow FiO2 Ox Delivery Rate 09/20 0825 98.1 90 20 124/60 94 09/20 0800 96 Nasal 3.0L Cannula 09/20 0759 94 Nasal 3.0L Cannula 09/20 0000 94 Nasal 3.0L Cannula 09/19 2054 94 Nasal 3.0L Cannula 09/19 1637 98.2 83 18 144/68 95 Nasal 3.0L Cannula Intake & Output 09/20 1600 09/20 0800 09/20 0000 Intake Total 480 490 Output Total 600 500 Balance -120 -10 Intake, IV 10 Intake, Oral 480 480 Output, Urine 600 500 Patient 202 lb Weight Physical Exam General Appearance: Alert, Oriented X3, Cooperative, No Acute Distress Skin: No Rashes, No Significant Lesion HEENT: Atraumatic, Mucous Membr. moist/pink Neck: Supple, No JVD Lymphatic: Cervical nl Cardiovascular: Regular Rate, Normal S1, Normal S2 Lungs: Normal Air Movement, Minimal basal rhonchi with rare wheeze. Abdomen: Normal Bowel Sounds, Soft, No Tenderness Neurological: Normal Speech, Normal Tone Extremities: Minimal bilateral lower extremity edema Vascular: Pulses Symmetrical Current Medications: Current Medications Sig/Satish Start time Last Medication Dose Route Stop Time Status Admin Albuterol Sulfate 3 ML TID 09/19 1000 AC 09/20 INH 0755 Apixaban 5 MG BID 09/18 2200 AC 09/20 PO 0912 Aspirin 81 MG QPM 09/18 2200 AC 09/19 PO 2109 Atorvastatin Calcium 40 MG 1700 09/19 1700 AC 09/19 PO 1744 Diltiazem HCl 90 MG TID 09/18 2230 AC 09/20 PO 0911 Docusate Sodium 200 MG BID 09/19 2200 AC 09/20 PO 0912 Doxazosin Mesylate 4 MG DAILY 09/19 1000 AC 09/20 PO 0912 Doxazosin Mesylate 2 MG QPM 09/18 2230 AC 09/19 PO 2109 Ferrous Sulfate 325 MG DAILY 09/19 1537 AC 09/20 PO 0912 Finasteride 5 MG DAILY 09/19 1000 AC 09/20 PO 0911 Fluticasone 2 PUF BID 09/18 2200 AC 09/20 Propionate INH 0913 Furosemide 40 MG DAILY 09/21 1000 UNVr PO Furosemide 40 MG DAILY 09/19 1000 DC 09/20 IV 0912 Ipratropium Ramona 2.5 ML TID 09/19 1000 AC 09/20 INH 0755 Lactulose 20 GM DAILY PRN 09/19 1700 AC PO Lorazepam 2 MG QPM 09/19 2200 AC 09/19 PO 2233 Omeprazole 40 MG DAILY AC 09/19 0700 AC 09/20 PO 0911 Oxycodone HCl 60 MG BID 09/19 1000 AC 09/20 PO 0912 Oxycodone HCl 30 MG Q4P PRN 09/18 2315 AC 09/20 PO 0625 Patient Medication 1 ED .STK-MED ONE 09/20 1137 NE Teaching ED 09/20 1138 Polyethylene Glycol 17 GM DAILY 09/19 1000 AC 09/20 PO 0912 Prednisone 5 MG DAILY 09/23 1000 AC PO Prednisone 10 MG ONCE ONE 09/22 1000 AC PO 09/22 1001 Prednisone 20 MG ONCE ONE 09/21 1000 AC PO 09/21 1001 Prednisone 30 MG ONCE ONE 09/20 1000 DC 09/20 PO 09/20 1001 0911 Tiotropium Ramona 1 PUF DAILY 09/19 1000 AC 09/20 INH 0913 Trazodone HCl 200 MG QPM 09/19 2200 AC 09/19 PO 2233 Orders ECHO Findings: CONCLUSIONS 1. THis was a technically difficult examination. 2. Mild aortic sclerosi is present with no valvular stenosis or insufficiency. 3. Mitral leaflet thickening is present with minimal to mild mitral insufficiency and moderate left atrial enlargement 4. There is no significant pericardial fluid present. 5. THe left ventricular chamber size is normal with mild to moderate concentric hypertrophy and a normal ejection fraction. 6. The right heart structures were not optimally visualized. Minimal to mild tricuspid and pulmonic insufficiency are present. The RV systolic pressure could not be accurately assessed. 7. Pacemaker wires are present in the right heart chambers. Radiology Findings: CXR: IMPRESSION: Imaging findings are again suggestive of congestive heart failure with interstitial pulmonary edema that is slightly improved in comparison to the previous study. Decreased size of a small left pleural effusion. Superimposed pneumonia is not excluded. Assessment/Plan Assessment: Mr. Palacios is a pleasant 81 year old male with PMH atrial fibrillation on Eliquis, COPD on 2 L home O2 and indefinite steroids, hyperlipidemia, HFpEF, hypertension and tachy-matty syndrome status post permanent pacemaker who presented with chief complaint of shortness of breath. Patient has a home oximeter and noted decreased O2 saturation to 84%, requiring him to increase home O2 via NC to 3 L. In the ED: Vital signs showed T 98.2, HR 118, RR 18, BP 149/79 and O2 sat 94% on 4L NC. Labs showed WBC 5.5, H&H 8.4/26.1, Plt 222, Na 137, K 3.7, Cl 94, HCO3 34 , BUN 11, cre 0.7, glu 201, lactic acid 1.8, troponin 0.02 and dig <0.4. CXR was done and showed interstitial pulmonary edema with small left pleural effusion. EKG showed HR 103, VT 140, QRS 110, paced rhythm. Patient is admitted to the telemetry floor and the following is the management: 1. Acute on chronic diastolic CHF * Patient has hx of HFpEF (EF 55-60%) * Continuous telemetry monitoring to continue * 40 mg IV lasix daily for diuresis, will switch to PO lasix 40 mg daily starting tomorrow * Close monitoring of Is&Os with daily weights * Cardio consult with Dr. Lora appreciated, he suggested persantine nuclear stress test on Saturday, patient to be made NPO tonight * Will follow up on cardio recommendations for improving rate control as he has remained tachycardic intermittently throughout the day * CHF diet 2. COPD, no acute exacerbation * Though patient had wheezing on presentation, no overt wheezing appreciated the last 2 days * We will continue with rapid steroid taper as recommended by pulmonology service (30 mg x 1 day, 20 mg x 1 day, 10 mg x 1 day then continue on home 5 mg prednisone daily) * Continue to follow pulm recommendations * Continue home inhalers, TRC nebs as needed 3. History of CAD, HTN * Continue nitro, diltiazem, ASA 81 mg PO daily * Continue eliquis * Vital signs Q shift 4. Atrial fibrillation s/p PPM implantation * Continue cardizem for rate control, discuss with cardio about additional rate control medicaitons we can use * Anticoagulation with eliquis 5. Acute anemia * H&H slightly below baseline on presentation, no active bleeding noted * Fe panel checked and only abnormality noted was low Fe * We have started ferrous sulfate daily * Repeat CBC on Sat to monitor 6. Chronic pain * Continue home oxycodone and OxyContin * Continue trazodone 20 mg by mouth every night * Continue Ativan 2 mg at night 7. BPH * Continue Proscar 5 mg by mouth daily * Continue Cardura 4 mg by mouth daily FULL CODE DVTP: Eliquis CHF diet Mild pain pathways Problem List: 1. Status post placement of cardiac pacemaker 2. Atrial fibrillation 3. Acute on chronic respiratory failure with hypoxemia 4. DVT prophylaxis 5. Full code status 6. (HFpEF) heart failure with preserved ejection fraction 7. CHF exacerbation Pain Ratin Pain Location: n/a Pain Goal: Remain pain free Pain Plan: Mild pain pathway Tomorrow's Labs & Rationales: BEP (monitor electrolytes with diuresis) LOIS HOPPER MD 09/20/16 1059: Attending MD Review Statement Attending Statement Attending MD Statement: examined this patient, discuss w/resident/PA/VEGETABLE PREPARER, agreed w/resident/PA/VEGETABLE PREPARER, discussed with family, reviewed EMR data (avail), discussed with nursing, discussed with case mgmt, amended to note Attending Assessment/Plan: Patient seen and examined. Resting comfortably and not in acute distress. Patient and family however reports that he becomes easily short of breath with activity. This however his baseline for the patient. He denies any new symptoms. Denies chest pain. Denies palpitations. On telemetry he remains in atrial fibrillation with periods of rapid ventricular response. On examination he has faint wheezing bilaterally. No evidence of congestion in the bases. He has no peripheral edema. Recommendations: -Continue rate control with Cardizem. Follow-up with the cardiology service regarding optimizing the control by increasing dose of Cardizem. He fortunately has a pacemaker in place and is less likely to develop significant bradycardia as he has done in the past. - He is maintaining a negative fluid balance and renal function is stable. Serum bicarbonate however is trending upwards. Would recommend transitioning patient to his oral Lasix regimen. -His cardiac decompensation may be secondary to his poorly controlled heart rate. We'll attempt optimize rate controlled today. -He is scheduled for nuclear stress test tomorrow. -His cardiac decompensation may be secondary to his poorly controlled heart rate. We'll attempt optimize rate controlled today. -He is scheduled for nuclear stress test tomorrow.
[2016-09-20 08:25] VITALS: BP 124/60
--- NOTE | 2016-09-20 09:43 | PN- Pulmonary ---
Subjective HPI/Critical Care Issues: Follow-up: Shortness of breath due to mostly CHF exacerbation Patient was seen and examined this morning, his daughter is at bedside. Both reported improvement of his symptoms, he still on 3 L oxygen with saturation 94% . He continues to complain of Dr. 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 He denied any fever, chills, chest pain, palpitation, dizziness. Patient is able to ambulate independently, eats and drinks well, reported good sleep last night. Objective Current Medications: Current Medications Sig/Satish Start time Last Medication Dose Route Stop Time Status Admin Albuterol Sulfate 3 ML TID 09/19 1000 AC 09/20 INH 0755 Apixaban 5 MG BID 09/18 2199 AC 09/20 PO 0912 Aspirin 81 MG QPM 09/18 2199 AC 09/19 PO 2109 Atorvastatin Calcium 40 MG 1700 09/19 1700 AC 09/19 PO 1744 Bisacodyl 10 MG ONCE ONE 09/19 1145 DC 09/19 [place] 09/19 1146 1157 Diltiazem HCl 90 MG TID 09/18 223 AC 09/20 PO 0911 Docusate Sodium 200 MG BID 09/19 2200 AC 09/20 PO 0912 Doxazosin Mesylate 4 MG DAILY 09/19 1000 AC 09/20 PO 0912 Doxazosin Mesylate 2 MG QPM 09/18 2230 AC 09/19 PO 2109 Ferrous Sulfate 325 MG DAILY 09/19 1537 AC 09/20 PO 0912 Finasteride 5 MG DAILY 09/19 1000 AC 09/20 PO 0911 Fluticasone 2 PUF BID 09/180 AC 09/20 Propionate INH 0913 Furosemide 40 MG DAILY 09/19 1000 AC 09/20 IV 0912 Ipratropium Ten Sleep 2.5 ML TID 09/19 1000 AC 09/20 INH 0755 Lactulose 20 GM DAILY PRN 09/19 1700 AC PO Lorazepam 2 MG QPM 09/19 2200 AC 09/19 PO 2233 Nitroglycerin 0.4 MG DAILY 09/19 1000 DC 09/19 TOP 0916 Omeprazole 40 MG DAILY AC 09/19 0700 AC 09/20 PO 0911 Oxycodone HCl 60 MG BID 09/19 1000 AC 09/20 PO 0912 Oxycodone HCl 30 MG Q4P PRN 09/18 2315 AC 09/20 PO 0625 Polyethylene Glycol 17 GM DAILY 09/19 1000 AC 09/20 PO 0912 Prednisone 5 MG DAILY 09/23 1000 AC PO Prednisone 10 MG ONCE ONE 09/22 1000 AC PO 09/22 1001 Prednisone 20 MG ONCE ONE 09/21 1000 AC PO 09/21 1001 Prednisone 30 MG ONCE ONE 09/20 1000 DC 09/20 PO 09/20 1001 0911 Tiotropium Ten Sleep 1 PUF DAILY 09/19 1000 AC 09/20 INH 0913 Trazodone HCl 200 MG QPM 09/19 2200 AC 09/19 PO 2233 Vital Signs & I&O Last 24 Hrs of Vitals and I&O: Vital Signs Date Time Temp Pulse Resp B/P Pulse O2 O2 Flow FiO2 Ox Delivery Rate 09/20 0825 98.1 90 20 124/60 94 09/20 0759 94 Nasal 3.0L Cannula 09/20 0000 94 Nasal 3.0L Cannula 09/19 2054 94 Nasal 3.0L Cannula 09/19 1637 98.2 83 18 144/68 95 Nasal 3.0L Cannula 09/19 1117 Nasal 3.0L Cannula Intake & Output 09/20 1600 09/20 0800 09/20 0000 Intake Total 480 490 Output Total 600 500 Balance -120 -10 Intake, IV 10 Intake, Oral 480 480 Output, Urine 600 500 Patient 91.626 kg Weight Exam General Appearance: well developed/nourished, no apparent distress, alert, awake , comfortable Head: atraumatic, normal appearance Ears, Nose, Throat: normal ENT inspection Neck: normal inspection Respiratory: chest non-tender, no respiratory distress, bilateral fine crackles basal, no whezee Cardiovascular: irregularly irregular Abdomen: normal bowel sounds, soft, non-tender Extremities: normal inspection, normal capillary refill, normal range of motion, bilateral LE edema +1 right and trace left Neurologic/Psychiatric: no motor/sensory deficits, awake, alert, oriented x 3 Impression/Plan Impression/Plan Impression/Plan: This is an 81-year-old gentleman with past medical history significant for A. fib on Eliquis, COPD on 2 L o2 and prednisone, hyperlipidemia, diastolic CHF, hypertension, sick sinus syndrome status post permanent pacemaker. Patient was admitted on 09/18/16 with chief complaint of shortness of breath. Chest x-ray on admission was suggestive for congestive heart failure with interstitial pulmonary edema and small left pleural effusion. Problems -COPD on 2 L home oxygen and chronic 5 mg prednisone daily -Hyperlipidemia and hypertension -Diastolic congestive heart failure with ejection fraction 60%, elevated right ventricular systolic pressure 46 mmhg -Atrial fibrillation on Eliquis -Sick sinus syndrome status post permanent pacemaker Plan -Continue oral prednisone 30 mg by mouth once, continue tapering 201, 101, and continue the home dose prednisone 5 mg by mouth daily -Continue TRC nebulizers and inhalers spiriva, fluticasone -Repeat CMP and replete potassium and magnesium as needed -Continue nasal cannula 3 L and titrate as tolerated, keep oxygen saturation more than 92% -Influenza rapid test is negative -Follow-up respiratory and blood culture -Continue Lasix per cardiology recommendation -DVT prophylaxis Eliquis
--- NOTE | 2016-09-20 13:05 | PN- Cardiology ---
Subjective Subjective: Stable and improving. NO specific complaints Objective Vital Signs and I&Os Vital Signs Date Time Temp Pulse Resp B/P Pulse O2 O2 Flow FiO2 Ox Delivery Rate 09/20 0825 98.1 90 20 124/60 94 09/20 0800 96 Nasal 3.0L Cannula 09/20 0759 94 Nasal 3.0L Cannula 09/20 0000 94 Nasal 3.0L Cannula 09/19 2053 94 Nasal 3.0L Cannula 09/19 1637 98.2 83 18 144/68 95 Nasal 3.0L Cannula Intake & Output 09/20 1600 09/20 0800 09/20 0000 09/19 1600 09/19 0800 09/19 0000 Intake Total 480 490 480 60 0 Output Total 600 500 366 307 0727 Balance -120 -10 -120 -440 -1225 Intake, IV 10 10 Intake, Oral 480 480 480 50 0 Number 1 Bowel Movements Output, Urine 600 500 879 704 2271 Patient 202 lb 211 lb Weight Current Medications: Current Medications Sig/Satish Start time Last Medication Dose Route Stop Time Status Admin Albuterol Sulfate 3 ML TID 09/19 1000 AC 09/20 INH 0755 Apixaban 5 MG BID 09/18 2200 AC 09/20 PO 0912 Aspirin 81 MG QPM 09/18 2200 AC 09/19 PO 2109 Atorvastatin Calcium 40 MG 1700 09/19 1700 AC 09/19 PO 1744 Diltiazem HCl 90 MG TID 09/18 2230 AC 09/20 PO 0911 Docusate Sodium 200 MG BID 09/19 2200 AC 09/20 PO 0912 Doxazosin Mesylate 4 MG DAILY 09/19 1000 AC 09/20 PO 0912 Doxazosin Mesylate 2 MG QPM 09/18 2230 AC 09/19 PO 2109 Ferrous Sulfate 325 MG DAILY 09/19 1537 AC 09/20 PO 0912 Finasteride 5 MG DAILY 09/19 1000 AC 09/20 PO 0911 Fluticasone 2 PUF BID 09/18 220 AC 09/20 Propionate INH 0913 Furosemide 40 MG DAILY 09/21 1000 AC PO Furosemide 40 MG DAILY 09/19 1000 DC 09/20 IV 0912 Ipratropium Maud 2.5 ML TID 09/19 1000 AC 09/20 INH 0755 Lactulose 20 GM DAILY PRN 09/19 1700 AC PO Lorazepam 2 MG QPM 09/19 2200 AC 09/19 PO 2233 Omeprazole 40 MG DAILY AC 09/19 0700 AC 09/20 PO 0911 Oxycodone HCl 60 MG BID 09/19 1000 AC 09/20 PO 0912 Oxycodone HCl 30 MG Q4P PRN 09/18 2315 09/20 PO 0625 Patient Medication 1 ED .STK-MED ONE 09/20 1137 DC Teaching ED 09/20 1138 Polyethylene Glycol 17 GM DAILY 09/19 1000 AC 09/20 PO 0912 Prednisone 5 MG DAILY 09/23 1000 AC PO Prednisone 10 MG ONCE ONE 09/22 1000 AC PO 09/22 1001 Prednisone 20 MG ONCE ONE 09/21 1000 AC PO 09/21 1001 Prednisone 30 MG ONCE ONE 09/20 1000 DC 09/20 PO 09/20 1001 0911 Tiotropium Maud 1 PUF DAILY 09/19 1000 AC 09/20 INH 0913 Trazodone HCl 200 MG QPM 09/19 2200 AC 09/19 PO 2233 Results Last 48 Hrs of Labs/Mics: Laboratory Tests 09/19/16 0505: Anion Gap 8, Estimated GFR > 60, BUN/Creatinine Ratio 15.7, Magnesium 1.6, Lactate Dehydrogenase 544, Troponin I 0.02, CBC w Diff MAN DIFF ORDERED, RBC 3.49 L, MCV 80.0, MCH 25.8 L, RDW 17.4 H, MPV 7.6, Gran % 85.2 H, Lymphocytes % 14.1 L, Monocytes % 0.5 L, Eosinophils % 0.2, Basophils % 0 L, Absolute Granulocytes 4.8, Segmented Neutrophils 82 H, Band Neutrophils 4, Absolute Lymphocytes 0.8 L, Lymphocytes 12 L, Monocytes 2, Absolute Monocytes 0 L, Absolute Eosinophils 0, Absolute Basophils 0, Platelet Estimate ADEQUATE, Polychromasia 1+, Hypochromic-Microcytic 2+, Poikilocytosis 1+, Anisocytosis 1+, Target Cells RARE, Stomatocytes RARE, Bret Cells 1+, Schistocytes RARE, PUBS MCHC 32.2 L, Retic Count 2.39 H, Fld Total RBCs Counted 100 09/19/16 0405: Urine Color STRAW, Urine Clarity CLEAR, Urine pH 7.0, Ur Specific [place] 1.010, Urine Protein NEG, Urine Ketones NEG, Urine Nitrite NEG, Urine Bilirubin NEG, Urine Urobilinogen 0.2, Ur Leukocyte Esterase NEG, Ur Microscopic SEDIMENT EXAMINED, Urine RBC 1-3, Ur Epithelial Cells RARE, Urine Hemoglobin TRACE-LYSED H, Urine Glucose 250 H 09/18/162205: Troponin I 0.02 09/18/162112: Lactic Acid Cancelled 09/18/16 1855: Anion Gap 8, Estimated GFR > 60, BUN/Creatinine Ratio 15.7, Glucose 201 H, Lactic Acid 1.8, Calcium 8.9, Iron 20 L, TIBC 315, Ferritin 66.1, Total Bilirubin 1.1, AST 16 L, ALT 24, Alkaline Phosphatase 70, Troponin I 0.02, Pro- B-Natriuretic Pept 2700 H, Total Protein 6.2 L, Albumin 3.0 L, Globulin 3.2, Albumin/Globulin Ratio 0.9 L, CBC w Diff NO MAN DIFF REQ, RBC 3.26 L, MCV 80.0 , MCH 25.8 L, RDW 17.7 H, MPV 7.2 L, Gran % 81.1 H, Lymphocytes % 12.0 L, Monocytes % 5.7, Eosinophils % 0.8, Basophils % 0.4, Absolute Granulocytes 4.4, Absolute Lymphocytes 0.7 L, Absolute Monocytes 0.3, Absolute Eosinophils 0, Absolute Basophils 0, PUBS MCHC 32.3 L, Digoxin < 0.4 L Microbiology 09/18 1925 NASOPHARYN: Influenza Virus A & B Rapid Smear - COMP Assessment/Plan Assessment/Plan Assessment: 1. Worsening dyspnea, likely related to underlying pulmonary disease and acute on chronic diastolic heart failure 2. COPD 3. History of coronary artery disease 4. Atrial fibrillation; status post permanent pacemaker 5. History of hypertension Recommendations: -Continue to monitor the patient on telemetry -Transition patient to lasix 40 po daily after today -Follow-up laboratories in the morning -The patient should be kept nothing by mouth after midnight today for PTN nuclear stress test in AM Continue telemetry? Yes
[2016-09-20 16:07] VITALS: BP 152/84
[2016-09-21 00:40] VITALS: BP 118/70
--- NOTE | 2016-09-21 06:48 | PN- Housestaff ---
See Addendum Subjective Follow-up For: CHF exacerbation HFpEF COPD Tele-Events Since Last Visit: Atrial fibrillation, HR 81-114 with frequent PVCs overnight. Subjective: Patient seen and examined at bedside this AM. He is laying flat in bed without overt dyspnea. He remains on three liters and reports that his respiratory status is close to baseline. He is ready for persantine stress test today and has not had any food intake since midnight. He currently denies chest pain or palpitations and offers no specific complaint. Review of Systems Constitutional: Denies: chills, fever. EENTM: Denies: visual changes, nasal congestion. Cardiovascular: Denies: chest pain, orthopena, palpitations. Respiratory: Denies: cough, short of breath. Gastrointestinal: Denies: abdominal pain, constipation, diarrhea. Genitourinary: Denies: dysuria. Musculoskeletal: Denies: back pain, joint pain. Skin: Denies: change in skin color, change in hair/nails. Neurological/Psychological: Denies: confusion, headache. Hematologic/Endocrine: Denies: bruising, bleeding. Objective Last 24 Hrs of Vital Signs/I&O Vital Signs Date Time Temp Pulse Resp B/P Pulse O2 O2 Flow FiO2 Ox Delivery Rate 09/21 0756 97.7 110 20 128/70 94 Nasal 3.0L Cannula 09/21 0040 97.8 81 20 118/70 97 09/21 0000 94 Nasal 3.0L Cannula 09/20 1945 91 Nasal 3.0L Cannula 09/20 1643 98.0 90 20 119 09/20 1607 115 152/84 09/20 1600 Nasal 3.0L Cannula 09/20 0825 98.1 90 20 124/60 94 Intake & Output 09/21 1600 09/21 0800 09/21 0000 Intake Total 50 480 Output Total 300 200 Balance -250 280 Intake, Oral 50 480 Output, Urine 300 200 Patient 192 lb Weight Physical Exam General Appearance: Alert, Oriented X3, Cooperative, No Acute Distress Skin: No Rashes, No Significant Lesion HEENT: Atraumatic, PERRLA, EOMI, Mucous Membr. moist/pink Neck: Supple, +2 Carotid Pulse wo Bruit Lymphatic: Cervical nl Cardiovascular: Irregularly irregular without overt murmur. Lungs: Normal Air Movement, No wheezing appreciated, bilateral basal intermittent crackles. Abdomen: Normal Bowel Sounds, Soft, No Tenderness Neurological: Normal Speech, Strength at 5/5 X4 Ext, Normal Tone Extremities: No Clubbing, No Cyanosis, Minimal/trace bilateral lower extremity edema (patient's baseline) Vascular: Pulses Symmetrical Current Medications: Current Medications Sig/Satish Start time Last Medication Dose Route Stop Time Status Admin Albuterol Sulfate 3 ML TID 09/19 1000 AC 09/20 INH 1945 Apixaban 5 MG BID 09/18 2200 AC 09/20 PO 210 Aspirin 81 MG QPM 09/18 2200 AC 09/20 PO 210 Atorvastatin Calcium 40 MG 1700 09/19 1700 AC 09/20 PO 1601 Diltiazem HCl 90 MG TID 09/18 2230 AC 09/20 PO 210 Docusate Sodium 200 MG BID 09/19 2200 AC 09/20 PO 0912 Doxazosin Mesylate 4 MG DAILY 09/19 1000 AC 09/20 PO 0912 Doxazosin Mesylate 2 MG QPM 09/18 2230 AC 09/20 PO 2104 Ferrous Sulfate 325 MG DAILY 09/19 1537 AC 09/20 PO 0912 Finasteride 5 MG DAILY 09/19 1000 AC 09/20 PO 0911 Fluticasone 2 PUF BID 09/18 2200 AC 09/20 Propionate INH 2105 Furosemide 40 MG DAILY 09/21 1000 AC PO Furosemide 40 MG DAILY 09/19 1000 DC 09/20 IV 0912 Ipratropium [place] 2.5 ML TID 09/19 1000 AC 09/20 INH 1945 Lactulose 20 GM DAILY PRN 09/19 1700 AC PO Lorazepam 2 MG QPM 09/19 2200 AC 09/20 PO 2226 Omeprazole 40 MG DAILY AC 09/19 0700 AC 09/21 PO 0634 Oxycodone HCl 60 MG BID 09/19 1000 AC 09/20 PO 2104 Oxycodone HCl 30 MG Q4P PRN 09/18 2315 AC 09/20 PO 0625 Patient Medication 1 ED .STK-MED ONE 09/20 1137 DC Teaching ED 09/20 1138 Polyethylene Glycol 17 GM DAILY 09/19 1000 AC 09/20 PO 0912 Potassium Chloride 40 MEQ ONCE ONE 09/20 2100 DC 09/20 PO 09/20 210 2104 Potassium Chloride 10 MEQ Q1H 09/20 2030 DC IV 09/20 213 Prednisone 5 MG DAILY 09/23 1000 AC PO Prednisone 10 MG ONCE ONE 09/22 1000 AC PO 09/22 1001 Prednisone 20 MG ONCE ONE 09/21 1000 AC PO 09/21 1001 Prednisone 30 MG ONCE ONE 09/20 1000 DC 09/20 PO 09/20 1001 0911 Tiotropium [place] 1 PUF DAILY 09/19 1000 AC 09/20 INH 0913 Trazodone HCl 200 MG QPM 09/19 2200 AC 09/20 PO 2226 Last 24 Hrs of Lab/Esteban Results Last 24 Hrs of Labs/Mics: Laboratory Tests 09/21/16 0610: Sodium Pending, Potassium Pending, Chloride Pending, Carbon Dioxide Pending, Anion Gap Pending, BUN Pending, Creatinine Pending, BUN/Creatinine Ratio Pending , CBC w Diff Pending, WBC Pending, RBC Pending, Hgb Pending, Hct Pending, MCV Pending, MCH Pending, RDW Pending, Plt Count Pending, MPV Pending, PUBS MCHC Pending Orders ECHO Findings: CONCLUSIONS 1. THis was a technically difficult examination. 2. Mild aortic sclerosi is present with no valvular stenosis or insufficiency. 3. Mitral leaflet thickening is present with minimal to mild mitral insufficiency and moderate left atrial enlargement 4. There is no significant pericardial fluid present. 5. THe left ventricular chamber size is normal with mild to moderate concentric hypertrophy and a normal ejection fraction. 6. The right heart structures were not optimally visualized. Minimal to mild tricuspid and pulmonic insufficiency are present. The RV systolic pressure could not be accurately assessed. 7. Pacemaker wires are present in the right heart chambers. Radiology Findings: CXR: IMPRESSION: Imaging findings are again suggestive of congestive heart failure with interstitial pulmonary edema that is slightly improved in comparison to the previous study. Decreased size of a small left pleural effusion. Superimposed pneumonia is not excluded. Assessment/Plan Assessment: Mr. Palacios is a pleasant 81 year old male with PMH atrial fibrillation on Eliquis, COPD on 2 L home O2 and indefinite steroids, hyperlipidemia, HFpEF, hypertension and tachy-matty syndrome s/p permanent pacemaker who presented with chief complaint of shortness of breath. Patient has a home oximeter and noted decreased O2 saturation to 84%, requiring him to increase home O2 via NC to 3 L. In the ED: Vital signs showed T 98.2, HR 118, RR 18, BP 149/79 and O2 sat 94% on 4L NC. Labs showed WBC 5.5, H&H 8.4/26.1, Plt 222, Na 137, K 3.7, Cl 94, HCO3 34 , BUN 11, cre 0.7, glu 201, lactic acid 1.8, troponin 0.02 and dig <0.4. CXR was done and showed interstitial pulmonary edema with small left pleural effusion. EKG showed HR 103, IL 140, QRS 110, paced rhythm. Patient is admitted to the telemetry floor and the following is the management: 1. Acute on chronic diastolic CHF * Patient has hx of HFpEF (EF 55-60%) * Continuous telemetry monitoring to continue * Switched to PO lasix 40 mg daily * Close monitoring of Is&Os with daily weights * Cardio consult with Dr. Lora appreciated, he suggested persantine nuclear stress test today, patient NPO and scheduled for 10 AM * F/U stress test results * Digoxin added today for improved rate control today, monitor HR closely * Continue CHF diet 2. COPD, no acute exacerbation * Patient currently saturating well on his home 3 L NC * Though patient had wheezing on presentation, no overt wheezing appreciated the last 3 days * We will continue with rapid steroid taper as recommended by pulmonology service (20 mg x 1 day, 10 mg x 1 day then continue on home 5 mg prednisone daily) * Continue to follow pulm recommendations * Continue home inhalers, TRC nebs as needed 3. History of CAD, HTN * Continue nitro patch, diltiazem 90 mg PO TID, ASA 81 mg PO daily * Continue eliquis 5 mg PO BID * Vital signs Q shift 4. Atrial fibrillation s/p PPM implantation * Continue cardizem for rate control * Discussed with Dr. Lora about patient's intermittent tachycardia, we will proceed with 2 doses of 0.125 digoxin today and then continue with 0.125 mg digoxin daily thereafter for improved rate control * Anticoagulation with eliquis 5. Acute anemia * H&H slightly below baseline on presentation, no active bleeding noted * Fe panel checked and only abnormality noted was low Fe * We have started ferrous sulfate daily * Repeat CBC on Sat to monitor 6. Chronic pain * Continue home oxycodone and OxyContin * Continue trazodone 20 mg by mouth every night * Continue Ativan 2 mg at night 7. BPH * Continue Proscar 5 mg by mouth daily * Continue Cardura 4 mg by mouth daily FULL CODE DVTP: Eliquis CHF diet Mild pain pathways Problem List: 1. Status post placement of cardiac pacemaker 2. COPD (chronic obstructive pulmonary disease) 3. Acute on chronic respiratory failure with hypoxemia 4. Atrial fibrillation 5. Full code status 6. DVT prophylaxis 7. Chronic constipation 8. (HFpEF) heart failure with preserved ejection fraction 9. CHF exacerbation Pain Ratin Pain Location: n/a Pain Goal: Remain pain free Pain Plan: Roxicodone 30 mg Q4P for pain (chronic back pain) Tomorrow's Labs & Rationales: None.
[2016-09-21 07:51] LABS: ABSOLUTE BASOPHIL COUNT 0 /CUMM (0.0-0.2); ABSOLUTE EOSINOPHIL COUNT 0 /CUMM (0.0-0.7); ABSOLUTE GRANULOCYTE CT 4.6 /CUMM (1.4-6.5); ABSOLUTE LYMPH COUNT 1.9 /CUMM (1.2-3.4); ABSOLUTE MONOCYTE COUNT 0.5 /CUMM (0.10-0.60); BASOPHIL % 0 % (0.0-2.0); EOSINOPHIL % 0.4 % (0-5); HEMATOCRIT 26.8 % (42-52); MEAN CORPUSCULAR HGB CONC 32.5 G/DL (33.0-37.0); MEAN CORPUSCULAR VOLUME 79.9 FL (80.0-94.0); MEAN PLATELET VOLUME 7.8 FL (7.4-10.4); PLATELET COUNT 220 /CUMM (130-400); RED BLOOD CELL CT 3.35 /CUMM (4.70-6.10); WHITE BLOOD CELL COUNT 7.1 /CUMM (4.8-10.8)
[2016-09-21 07:56] VITALS: BP 128/70
--- NOTE | 2016-09-21 09:55 | PN- Pulmonary ---
Subjective HPI/Critical Care Issues: Patient is awake and alert. He continues to have difficulty with heart rate control. With any exertion, his heart rate is in the 200s. Digoxin has been started. He has ongoing exertional dyspnea however this has not worsened. He has a chronic cough which improves with nebulizer treatments. He has no wheezing or chest congestion. He denies chest pain. Objective Current Medications: Current Medications Sig/Satish Start time Last Medication Dose Route Stop Time Status Admin Albuterol Sulfate 3 ML TID 09/19 1000 AC 09/21 INH 0845 Apixaban 5 MG BID 09/18 2200 AC 09/20 PO 2104 Aspirin 81 MG QPM 09/18 2200 AC 09/20 PO 2104 Atorvastatin Calcium 40 MG 1700 09/19 1700 AC 09/20 PO 1601 Digoxin 0.125 MG 1700 09/21 1700 AC PO Digoxin 0.125 MG ONCE ONE 09/21 0845 DC 09/21 PO 09/21 0846 0943 Diltiazem HCl 90 MG TID 09/18 2230 AC 09/21 PO 0944 Docusate Sodium 200 MG BID 09/19 2200 AC 09/21 PO 0943 Doxazosin Mesylate 4 MG DAILY 09/19 1000 AC 09/21 PO 0944 Doxazosin Mesylate 2 MG QPM 09/18 2230 AC 09/20 PO 2104 Ferrous Sulfate 325 MG DAILY 09/19 1537 AC 09/21 PO 0943 Finasteride 5 MG DAILY 09/19 1000 AC 09/21 PO 0943 Fluticasone 2 PUF BID 09/18 2200 AC 09/20 Propionate INH 2105 Furosemide 40 MG DAILY 09/21 1000 AC 09/21 PO 0943 Furosemide 40 MG DAILY 09/19 1000 DC 09/20 IV 0912 Ipratropium [place] 2.5 ML TID 09/19 1000 AC 09/21 INH 0845 Lactulose 20 GM DAILY PRN 09/19 1700 AC PO Lorazepam 2 MG QPM 09/19 2200 AC 09/20 PO 2226 Omeprazole 40 MG DAILY AC 09/19 0700 AC 09/21 PO 0634 Oxycodone HCl 60 MG BID 09/19 1000 AC 09/20 PO 2104 Oxycodone HCl 30 MG Q4P PRN 09/18 2315 AC 09/20 PO 0625 Patient Medication 1 ED .STK-MED ONE 09/20 1137 [place] Teaching ED 09/20 1138 Polyethylene Glycol 17 GM DAILY 09/19 1000 AC 09/21 PO 0944 Potassium Chloride 40 MEQ ONCE ONE 09/20 2100 DC 09/20 PO 09/20 2100 210 Potassium Chloride 10 MEQ Q1H 09/20 2030 DC IV 09/20 2130 Prednisone 5 MG DAILY 09/23 1000 AC PO Prednisone 10 MG ONCE ONE 09/22 1000 AC PO 09/22 1001 Prednisone 20 MG ONCE ONE 09/21 1000 AC PO 09/21 1001 Prednisone 30 MG ONCE ONE 09/20 1000 DC 09/20 PO 09/20 1001 0911 Tiotropium [place] 1 PUF DAILY 09/19 1000 AC 09/20 INH 0913 Trazodone HCl 200 MG QPM 09/19 2200 AC 09/20 PO 2226 Vital Signs & I&O Last 24 Hrs of Vitals and I&O: Vital Signs Date Time Temp Pulse Resp B/P Pulse O2 O2 Flow FiO2 Ox Delivery Rate 09/21 0943 179 128/70 09/21 0756 97.7 110 20 128/70 94 Nasal 3.0L Cannula 09/21 0040 97.8 81 20 118/70 97 09/21 0000 94 Nasal 3.0L Cannula 09/20 1945 91 Nasal 3.0L Cannula 09/20 1643 98.0 90 20 119 09/20 1607 115 152/84 09/20 1600 Nasal 3.0L Cannula Intake & Output 09/21 1600 09/21 0800 09/21 0000 Intake Total 50 480 Output Total 300 200 Balance -250 280 Intake, Oral 50 480 Output, Urine 300 200 Patient 192 lb Weight Exam General Appearance: well developed/nourished, no apparent distress, alert, awake , comfortable Head: atraumatic, normal appearance Neck: normal inspection Respiratory: chest non-tender, no respiratory distress, bilateral fine crackles basal, no wheezing Cardiovascular: irregularly irregular Abdomen: normal bowel sounds, soft, non-tender Extremities: normal inspection, normal capillary refill, normal range of motion Neurologic/Psychiatric: no motor/sensory deficits, awake, alert, oriented x 3 Results Last 24 Hrs of Lab Results: Laboratory Tests 09/21/16 0610: Anion Gap 7, Estimated GFR > 60, BUN/Creatinine Ratio 23.8, CBC w Diff NO MAN DIFF REQ, RBC 3.35 L, MCV 79.9 L, MCH 26.0 L, RDW 17.0 H, MPV 7.8, Gran % 65.0, Lymphocytes % 27.2, Monocytes % 7.4, Eosinophils % 0.4, Basophils % 0 L, Absolute Granulocytes 4.6, Absolute Lymphocytes 1.9, Absolute Monocytes 0.5, Absolute Eosinophils 0, Absolute Basophils 0, PUBS MCHC 32.5 L Last 24 Hrs of Micro Results: Sputum positive for gram negative rods. Impression/Plan Impression/Plan Impression/Plan: 1. COPD on 2 L home oxygen and chronic 5 mg prednisone daily. Sputum positive for gram negative rods, likely colonization. No evidence of active infection ( afebrile, normal white blood cell count). 2. Hyperlipidemia and hypertension 3. Diastolic congestive heart failure with ejection fraction 60%, elevated right ventricular systolic pressure 46 mmhg 4. Atrial fibrillation, rate uncontrolled. 5. Sick sinus syndrome, status post permanent pacemaker Recommendations: * Continue oral prednisone 30 mg by mouth once, continue tapering 201, 101, and continue the home dose prednisone 5 mg by mouth daily * Continue TRC nebulizers and inhalers Spiriva and Proventil. * Repeat CMP and replete potassium and magnesium as needed. * Continue nasal cannula 3 L and titrate as tolerated, keep oxygen saturation more than 92%. * Follow-up respiratory and blood culture. * Continue Lasix per cardiology recommendation. * DVT prophylaxis, on Eliquis.
--- NOTE | 2016-09-21 11:48 | PN- Cardiology ---
Subjective Subjective: Clinically, the patient appears to be doing fine. He has intermittent shortness of breath. With any activity, he has significant elevations in his heart rate. Pharmacologic nuclear stress test on hold due to elevated heart rate Objective Vital Signs and I&Os Vital Signs Date Time Temp Pulse Resp B/P Pulse O2 O2 Flow FiO2 Ox Delivery Rate 09/21 1011 140 128/70 09/21 0756 97.7 110 20 128/70 94 Nasal 3.0L Cannula 09/21 0040 97.8 81 20 118/70 97 09/21 0000 94 Nasal 3.0L Cannula 09/20 1945 91 Nasal 3.0L Cannula 09/20 1643 98.0 90 20 119 09/20 1607 115 152/84 09/20 1600 Nasal 3.0L Cannula Intake & Output 09/21 1600 09/21 0800 09/21 0000 09/20 1600 09/20 0700 09/20 0000 Intake Total 50 480 640 480 490 Output Total 460 250 3364 600 500 Balance -250 280 -660 -120 -10 Intake, IV 10 Intake, Oral 50 480 640 480 480 Output, Urine 417 422 7413 600 500 Patient 192 lb 202 lb Weight Physical Exam: Physical Exam General Appearance: Alert, Oriented X3, Cooperative, No Acute Distress Skin: Normal HEENT: Normal Neck: Supple, +2 Carotid Pulse wo Bruit Cardiovascular: Irregularly irregular; tachycardic; 1 to 2/6 systolic murmur Lungs: Essentially clear bilaterally minimal scattered rhonchi Abdomen: Normal Bowel Sounds, Soft, No Tenderness Neurological: Nonfocal Extremities: No Clubbing, No Cyanosis, Minimal/trace bilateral lower extremity edema (patient's baseline) Vascular: Pulses Symmetrical Current Medications: Current Medications Sig/Satish Start time Last Medication Dose Route Stop Time Status Admin Albuterol Sulfate 3 ML TID 09/19 1000 AC 09/21 INH 0845 Apixaban 5 MG BID 09/18 2199 AC 09/21 PO 1017 Aspirin 81 MG QPM 09/18 2199 AC 09/20 PO 2104 Atorvastatin Calcium 40 MG 09/19 170 AC 09/20 PO 1601 Digoxin 0.125 MG 09/22 1700 AC PO Digoxin 0.125 MG 09/21 1700 DC PO Digoxin 0.125 MCG 09/21 1700 CAN IV Digoxin 0.125 MG 09/21 1700 AC IV 09/21 1701 Digoxin 0.125 MG ONE TIME ONE 09/21 1015 DC 09/21 IV 09/21 1016 1011 Digoxin 0.125 MCG ONCE ONE 09/21 1000 CAN IV 09/21 1001 Digoxin 0.125 MG ONCE ONE 09/21 0845 DC PO 09/21 0846 Diltiazem HCl 90 MG TID 09/18 2230 AC 09/21 PO 0944 Dipyridamole 55 MG ONE ONE 09/21 1030 AC Dextrose/Water 29 ML IV 09/23 0229 Docusate Sodium 200 MG BID 09/19 2200 AC 09/21 PO 0943 Doxazosin Mesylate 4 MG DAILY 09/19 1000 AC 09/21 PO 0944 Doxazosin Mesylate 2 MG QPM 09/18 2230 AC 09/20 PO 2104 Ferrous Sulfate 325 MG DAILY 09/19 1537 AC 09/21 PO 0943 Finasteride 5 MG DAILY 09/19 1000 AC 09/21 PO 0943 Fluticasone 2 PUF BID 09/18 2200 AC 09/21 Propionate INH 1019 Furosemide 40 MG DAILY 09/21 1000 AC 09/21 PO 0943 Furosemide 40 MG DAILY 09/19 1000 DC 09/20 IV 0912 Ipratropium [place] 2.5 ML TID 09/19 1000 AC 09/21 INH 0845 Lactulose 20 GM DAILY PRN 09/19 1700 AC PO Lorazepam 2 MG QPM 09/19 2200 AC 09/20 PO 2226 Omeprazole 40 MG DAILY AC 09/19 0700 AC 09/21 PO 0634 Oxycodone HCl 60 MG BID 09/19 1000 AC 09/21 PO 1027 Oxycodone HCl 30 MG Q4P PRN 09/18 2315 AC 09/20 PO 0625 Polyethylene Glycol 17 GM DAILY 09/19 1000 AC 09/21 PO 0944 Potassium Chloride 40 MEQ ONCE ONE 09/20 2100 DC 09/20 PO 09/20 2101 2104 Potassium Chloride 10 MEQ Q1H 09/20 2030 DC IV 09/20 2131 Prednisone 5 MG DAILY 09/23 1000 AC PO Prednisone 10 MG ONCE ONE 09/22 1000 AC PO 09/22 1001 Prednisone 20 MG ONCE ONE 09/21 1000 DC 09/21 PO 09/21 1001 1017 Tiotropium [place] 1 PUF DAILY 09/19 1000 AC 09/21 INH 1017 Trazodone HCl 200 MG QPM 09/19 2199 AC 09/20 PO 2226 Results Last 48 Hrs of Labs/Mics: Laboratory Tests 09/21/16 0610: Anion Gap 7, Estimated GFR > 60, BUN/Creatinine Ratio 23.8, CBC w Diff NO MAN DIFF REQ, RBC 3.35 L, MCV 79.9 L, MCH 26.0 L, RDW 17.0 H, MPV 7.8, Gran % 65.0, Lymphocytes % 27.2, Monocytes % 7.4, Eosinophils % 0.4, Basophils % 0 L, Absolute Granulocytes 4.6, Absolute Lymphocytes 1.9, Absolute Monocytes 0.5, Absolute Eosinophils 0, Absolute Basophils 0, PUBS MCHC 32.5 L Assessment/Plan Assessment/Plan Assessment: 1. Worsening dyspnea, likely related to underlying pulmonary disease and acute on chronic diastolic heart failure 2. COPD 3. History of coronary artery disease 4. Atrial fibrillation; status post permanent pacemaker 5. History of hypertension Recommendations: -Continue to monitor the patient on telemetry -Transition patient to lasix 40 po daily after today -Follow-up laboratories in the morning -In view of the patient's elevated heart rate, and in view of the fact that his heart rate has previously not responded well to higher doses of calcium channel blockers or addition of beta blockers, we will start digoxin 0.125 mg twice a day today. Starting tomorrow morning, the patient will be placed on digoxin 0.125 mg daily. A digoxin level will be checked on Saturday. Additional doses of digoxin can be given if necessary for rate control. -Please keep the patient nothing by mouth after midnight Saturday for pharmacologic nuclear stress test on Saturday as long as the patient's heart rate is better controlled Continue telemetry? Yes
[2016-09-21 15:55] VITALS: BP 118/60
[2016-09-22 00:09] VITALS: BP 140/70
[2016-09-22 08:45] VITALS: BP 138/58
--- NOTE | 2016-09-22 09:22 | PN- Housestaff ---
Subjective Follow-up For: CHF exacerbation HFpEF COPD Tele-Events Since Last Visit: Sheri edmondson, heart rate 87-113, PVCs transient tachycardia to 170 Subjective: Seen and examined patient, offers no complaints. Denies shortness or breath or palpitations. Review of Systems Constitutional: Denies: chills, diaphoresis, fever, malaise, weakness, unexplained weight loss. Cardiovascular: Denies: chest pain, edema, orthopena, palpitations, peripheral edema, syncope. Respiratory: Denies: cough, hemoptysis, orthopnea, short of breath, sputum production, stridor, wheezing. Objective Last 24 Hrs of Vital Signs/I&O Vital Signs Date Time Temp Pulse Resp B/P Pulse O2 O2 Flow FiO2 Ox Delivery Rate 09/22 0845 98.2 100 22 138/58 986 Nasal 2.5L Cannula 09/22 0838 96 Nasal 3.0L Cannula 09/22 0009 97.8 89 12 140/70 97 Nasal 3.0L Cannula 09/22 0000 Nasal 3.0L Cannula 09/21 1959 97 Nasal 3.0L Cannula 09/21 1745 98 120/64 09/21 1600 Nasal 3.0L Cannula 09/21 1555 98.3 120 20 118/60 96 Nasal 3.0L Cannula Intake & Output 09/22 1600 09/22 0800 09/22 0000 Intake Total 100 610 Output Total 220 300 500 Balance -220 -200 110 Intake, IV 0 10 Intake, Oral 100 600 Number 0 Bowel Movements Output, Urine 220 300 500 Patient 198 lb 198 lb Weight Physical Exam General Appearance: Alert, No Acute Distress Cardiovascular: Normal S1, Normal S2 Lungs: Normal Air Movement Extremities: No Edema Current Medications: Current Medications Sig/Satish Start time Last Medication Dose Route Stop Time Status Admin Albuterol Sulfate 3 ML TID 09/19 1000 AC 09/22 INH 1404 Apixaban 5 MG BID 09/18 2200 AC 09/22 PO 0922 Aspirin 81 MG QPM 09/18 2199 AC 09/21 PO 2233 Atorvastatin Calcium 40 MG 09/19 1700 AC 09/21 PO 1745 Digoxin 0.125 MG 09/22 1700 AC PO Digoxin 0.125 MG 09/21 1700 DC 09/21 IV 09/21 1701 1745 Diltiazem HCl 90 MG TID 09/18 2229 AC 09/22 PO 0922 Dipyridamole 50 MG ONE ONE 09/24 1200 AC Dextrose/Water 30 ML IV 09/26 0359 Dipyridamole 55 MG ONE ONE 09/21 1030 DC Dextrose/Water 29 ML IV 09/23 0229 Docusate Sodium 200 MG BID 09/19 2200 AC 09/22 PO 0922 Doxazosin Mesylate 4 MG DAILY 09/19 1000 AC 09/22 PO 0922 Doxazosin Mesylate 2 MG QPM 09/18 2230 AC 09/21 PO 2233 Ferrous Sulfate 325 MG DAILY 09/19 1537 AC 09/22 PO 0922 Finasteride 5 MG DAILY 09/19 1000 AC 09/22 PO 0923 Fluticasone 2 PUF BID 09/18 2199 AC 09/22 Propionate INH 0927 Furosemide 40 MG DAILY 09/21 1000 AC 09/22 PO 0922 Ipratropium [place] 2.5 ML TID 09/19 1000 AC 09/22 INH 1403 Lactulose 20 GM DAILY PRN 09/19 1700 AC PO Lorazepam 2 MG QPM 09/190 AC 09/21 PO 2232 Magnesium Oxide 400 MG ONE ONE 09/22 1200 DC 09/22 PO 09/22 1201 1307 Omeprazole 40 MG DAILY AC 09/19 0700 AC 09/22 PO 0616 Oxycodone HCl 60 MG BID 09/19 1000 AC 09/22 PO 0922 Oxycodone HCl 30 MG Q4P PRN 09/18 2315 AC 09/20 PO 0625 Polyethylene Glycol 17 GM DAILY 09/19 1000 AC 09/22 PO 0921 Potassium Chloride 40 MEQ ONCE ONE 09/22 1200 DC 09/22 PO 09/22 1201 1307 Prednisone 5 MG DAILY 09/23 1000 AC PO Prednisone 10 MG ONCE ONE 09/22 1000 DC 09/22 PO 09/22 1001 0923 Tiotropium [place] 1 PUF DAILY 09/19 1000 AC 09/22 INH 0922 Trazodone HCl 200 MG QPM 09/19 2199 AC 09/21 PO 2233 Last 24 Hrs of Lab/Esteban Results Last 24 Hrs of Labs/Mics: Laboratory Tests 09/22/16 0625: Anion Gap 6, Estimated GFR > 60, BUN/Creatinine Ratio 23.8, Magnesium 1.8 Assessment/Plan Assessment: 81 year old gentleman with PMH atrial fibrillation on Eliquis, COPD on 2 L home O2 and chronic steroids, hyperlipidemia, HFpEF, hypertension and tachy-matty syndrome s/p permanent pacemaker current admission for shortness of breath.CXR showed interstitial pulmonary edema with small left pleural effusion. Patient is admitted to the telemetry floor and the following is the management: 1. Acute on chronic diastolic CHF * Patient has hx of HFpEF (EF 55-60%) * Continuous telemetry monitoring * on PO lasix 40 mg daily * Close monitoring of Is&Os with daily weights * Cardio on board, will be kept nothing by mouth past midnight tomorrow for nuclear stress test on saturday * continue Digoxin, Check digoxin level on Saturday. * Continue CHF diet 2. COPD, no acute exacerbation * We will continue with rapid steroid taper as recommended by pulmonology service (20 mg x 1 day, 10 mg x 1 day then continue on home 5 mg prednisone daily) * Continue to follow pulm recommendations * Continue home inhalers, TRC nebs as needed 3. History of CAD, HTN * Continue nitro patch, diltiazem 90 mg PO TID, ASA 81 mg PO daily * Continue eliquis 5 mg PO BID * Vital signs Q shift 4. Atrial fibrillation s/p PPM implantation * Continue cardizem for rate control * Anticoagulation with eliquis 5. Anemia * on started ferrous sulfate daily 6. Chronic pain * Continue home oxycodone and OxyContin * Continue trazodone 20 mg by mouth every night * Continue Ativan 2 mg at night 7. BPH * Continue Proscar 5 mg by mouth daily * Continue Cardura 4 mg by mouth daily FULL CODE DVTP: Eliquis CHF diet Mild pain pathways Problem List: 1. COPD 2. Atrial fibrillation with rapid ventricular response 3. Hypertension 4. (HFpEF) heart failure with preserved ejection fraction Pain Ratin Pain Location: na Pain Goal: Pain 4 or less Pain Plan: current regimen Tomorrow's Labs & Rationales: bep/mg
--- NOTE | 2016-09-22 11:11 | PN- Att Addend ---
Attending Addendum Attending Brief Note Patient seen and examined. Lying comfortably in bed and not in any acute distress. Heart rate is better controlled overnight in the 80s to low 100s. He denies chest pains. Denies shortness or breath or palpitations. Vital Signs Date Time Temp Pulse Resp B/P Pulse O2 O2 Flow FiO2 Ox Delivery Rate 09/22 0845 98.2 100 22 138/58 986 Nasal 2.5L Cannula 09/22 0838 96 Nasal 3.0L Cannula 09/22 0009 97.8 89 12 140/70 97 Nasal 3.0L Cannula 09/22 0000 Nasal 3.0L Cannula 09/21 1959 97 Nasal 3.0L Cannula 09/21 1745 98 120/64 09/21 1600 Nasal 3.0L Cannula 09/21 1555 98.3 120 20 118/60 96 Nasal 3.0L Cannula 09/21 1251 94 Nasal 3.0L Cannula 09/21 1200 94 Nasal 3.0L Cannula Gen. appearance: Well-developed, not in any distress Lungs: Fair entry bilaterally, clear to auscultation Heart: S1-S2 irregular Abdomen: Soft, nontender with normal bowel sounds Extremities: No pedal edema Neurologic: Alert and oriented 3 Laboratory Tests 09/22/16 0625: Anion Gap 6, Estimated GFR > 60, BUN/Creatinine Ratio 23.8, Magnesium 1.8 Problems: 1. Atrial fibrillation with rapid ventricular response. 2. Worsening dyspnea on exertion likely Multifactorial 3. Oxygen dependent COPD Plans: -Heart rate is better controlled with addition of digoxin. He remains on Cardizem. -We'll freely mobile to proceed with nuclear stress test after the weekend. -Check digoxin level on Saturday. -Patient will be kept nothing by mouth past midnight tomorrow. -Continue diuresis with Lasix.
--- NOTE | 2016-09-22 11:54 | PN- Pulmonary ---
Subjective HPI/Critical Care Issues: pt seen and examined constipation, awaiting suppository at respiratory baseline, comfortable this am in bed no n/v/d no fevers or chills Objective Current Medications: Current Medications Sig/Satish Start time Last Medication Dose Route Stop Time Status Admin Albuterol Sulfate 3 ML TID 09/19 1000 AC 09/22 INH 0835 Apixaban 5 MG BID 09/18 2199 AC 09/22 PO 0922 Aspirin 81 MG QPM 09/18 2200 AC 09/21 PO 2233 Atorvastatin Calcium 40 [place] 17009/19 1700 AC 09/21 PO 1745 Digoxin 0.125 MG 1700 09/22 1700 AC PO Digoxin 0.125 MG 09/21 1700 DC 09/21 IV 09/21 1701 1745 Diltiazem HCl 90 MG TID 09/18 223 AC 09/22 PO 0922 Dipyridamole 50 MG ONE 09/24 1200 AC Dextrose/Water 30 ML IV 09/26 0359 Dipyridamole 55 MG 09/21 1030 DC Dextrose/Water 29 ML IV 09/23 0229 Docusate Sodium 200 MG BID 09/19 2199 AC 09/22 PO 0922 Doxazosin Mesylate 4 MG DAILY 09/19 1000 AC 09/22 PO 0922 Doxazosin Mesylate 2 MG QPM 09/18 2230 AC 09/21 PO 2233 Ferrous Sulfate 325 MG DAILY 09/19 1537 AC 09/22 PO 0922 Finasteride 5 MG DAILY 09/19 1000 AC 09/22 PO 0923 Fluticasone 2 PUF BID 09/18 2199 AC 09/22 Propionate INH 0927 Furosemide 40 MG DAILY 09/21 1000 AC 09/22 PO 0922 Ipratropium [place] 2.5 ML TID 09/19 1000 AC 09/22 INH 0835 Lactulose 20 GM DAILY PRN 09/19 1700 AC PO Lorazepam 2 MG QPM 09/19 2200 AC 09/21 PO 2232 Omeprazole 40 MG DAILY AC 09/19 0700 AC 09/22 PO 0616 Oxycodone HCl 60 MG BID 09/19 1000 AC 09/22 PO 0922 Oxycodone HCl 30 MG Q4P PRN 09/18 2315 AC 09/20 PO 0625 Polyethylene Glycol 17 GM DAILY 09/19 1000 AC 09/22 PO 0921 Prednisone 5 MG DAILY 09/23 1000 AC PO Prednisone 10 MG ONCE ONE 09/22 1000 DC 09/22 PO 09/22 1001 0923 Tiotropium [place] 1 PUF DAILY 09/19 1000 AC 09/22 INH 0922 Trazodone HCl 200 MG QPM 09/19 2200 AC 09/21 PO 2233 Vital Signs & I&O Last 24 Hrs of Vitals and I&O: Vital Signs Date Time Temp Pulse Resp B/P Pulse O2 O2 Flow FiO2 Ox Delivery Rate 09/22 0845 98.2 100 22 138/58 986 Nasal 2.5L Cannula 09/22 0838 96 Nasal 3.0L Cannula 09/22 0009 97.8 89 12 140/70 97 Nasal 3.0L Cannula 09/22 0000 Nasal 3.0L Cannula 09/21 1959 97 Nasal 3.0L Cannula 09/21 1745 98 120/64 09/21 1600 Nasal 3.0L Cannula 09/21 1555 98.3 120 20 118/60 96 Nasal 3.0L Cannula 09/21 1251 94 Nasal 3.0L Cannula 09/21 1200 94 Nasal 3.0L Cannula Intake & Output 09/22 1600 09/22 0800 09/22 0000 Intake Total 100 610 Output Total 220 300 500 Balance -220 -200 110 Intake, IV 0 10 Intake, Oral 100 600 Number 0 Bowel Movements Output, Urine 220 300 500 Patient 198 lb Weight Exam Other Physical Findings: gen awake and alert heent ncat cvs s1, s2 lungs ctab abd soft bs+ ext without edema Results Last 24 Hrs of Lab Results: Laboratory Tests 09/22/16 0625: Anion Gap 6, Estimated GFR > 60, BUN/Creatinine Ratio 23.8, Magnesium 1.8 Impression/Plan Impression/Plan Impression/Plan: Impression 81 year old man COPD on home o2 a.fib RVR Plan -hr control -monitor digoxin levels -nuclear stress test pending -f/u cardiology -ins/outs -trc/nebs -steroid taper as ordered (5mg baseline) -keep spo2 >92% DVT prophylaxis (Eliquis)
[2016-09-22 16:07] VITALS: BP 1128/58
--- NOTE | 2016-09-22 20:53 | PN- Cardiology ---
Subjective Subjective: No specific complaints and feels as though his breathing has improved. He has had a negative fluid balance over 3 L since admission with diuresis. Objective Vital Signs and I&Os Vital Signs Date Time Temp Pulse Resp B/P Pulse O2 O2 Flow FiO2 Ox Delivery Rate 09/22 1659 119 128/58 09/22 1607 97.9 280 88 5953/58 97 Nasal 3.0L Cannula 09/22 0845 98.2 100 22 138/58 986 Nasal 2.5L Cannula 09/22 0838 96 Nasal 3.0L Cannula 09/22 0800 95 Nasal 3.0L Cannula 09/22 0009 97.8 89 12 140/70 97 Nasal 3.0L Cannula 09/22 0000 Nasal 3.0L Cannula Intake & Output 09/22 1600 09/22 0809/22 0000 09/21 1600 09/21 0800 09/21 0000 Intake Total 900 100 610 380 50 480 Output Total 1120 300 500 800 300 200 Balance -220 -200 110 -420 -250 280 Intake, IV 0 10 20 Intake, Oral 900 100 600 360 50 480 Number 1 0 0 Bowel Movements Output, Urine 1120 300 500 800 300 200 Patient 198 lb 198 lb 192 lb Weight Physical Exam: Well-developed, overweight elderly male in no acute distress with nasal oxygen in place. Vital signs: See above. Lungs: Decreased breath sounds bilaterally with bibasilar crackles. Heart: S1, S2 with soft systolic murmur. Extremities: Decreased edema. Results Recent Imaging Studies: Echocardiogram (09/19/2016): 1. Technically difficult examination. 2. Mild aortic sclerosis is present with no valvular stenosis or insufficiency. 3. Mitral leaflet thickening is present with minimal to mild mitral insufficiency and moderate left atrial enlargement 4. There is no significant pericardial fluid present. 5. THe left ventricular chamber size is normal with mild to moderate concentric hypertrophy and a normal ejection fraction. 6. The right heart structures were not optimally visualized. Minimal to mild tricuspid and pulmonic insufficiency are present. The RV systolic pressure could not be accurately assessed. 7. Pacemaker wires are present in the right heart chambers. Assessment/Plan Assessment/Plan Mr. Kip Palacios is an elderly male with a long-standing history of obesity, long-standing tobacco use, severe COPD with frequent exacerbations, recurrent pneumonia, obstructive sleep apnea, hypertension, dyslipidemia, diabetes mellitus, previous TIA, atrial fibrillation, status post permanent pacemaker, coronary artery disease, nonsustained ventricular tachycardia, and recurrent acute on chronic diastolic heart failure who presented to the ED on 09/18/2016 with worsening shortness of breath felt secondary to his underlying pulmonary disease and acute on chronic diastolic heart failure. He has improved significantly following diuresis of over 3 L and, thus far, his BUN is up slightly, but his creatinine is stable. Recommendations: * Continue on telemetry. * Replete potassium and magnesium. * Continue IV furosemide with close follow-up of his inputs/outputs, daily weights, BUN/creatinine, potassium, magnesium, etc. * Nothing by mouth after midnight on Saturday night (09/23/2011) in anticipation of pharmacologic stress test on Saturday. Continue telemetry? Yes
[2016-09-22 23:00] VITALS: BP 132/62
--- NOTE | 2016-09-23 08:14 | PN- Housestaff ---
HELENA WIGGINS,LIAT 09/23/16 0814: Subjective Follow-up For: SOB A fib with RVR Tele-Events Since Last Visit: A fib rate 68-112, tachy up to 150s when he goes to the bathroom. Subjective: Pt was seen this morning, he reports feeling better. His cough is better, he has clear sputum. He is currently on 3L (home 2L) and he is in no respiratory distress. He does have insp and exp diffuse wheezing. Denies SOB. No CP. he has trace pedal edema. His k went down to 3.4, ordered kdur X 2 Review of Systems Constitutional: Reports: see HPI. Objective Last 24 Hrs of Vital Signs/I&O Vital Signs Date Time Temp Pulse Resp B/P Pulse O2 O2 Flow FiO2 Ox Delivery Rate 09/23 0941 96 Nasal 3.0L Cannula 09/23 0815 97.1 76 20 140/80 96 Nasal 3.0L Cannula 09/23 0800 Nasal 3.0L Cannula 09/23 0000 Nasal 3.0L Cannula 09/22 2300 97.6 101 18 132/62 100 Nasal 3.0L Cannula 09/22 1659 119 128/58 09/22 1607 97.9 830 08 0292/58 97 Nasal 3.0L Cannula Intake & Output 09/23 1600 09/23 0800 09/23 0000 Intake Total 250 450 Output Total 400 400 700 Balance -400 -150 -250 Intake, IV 0 0 Intake, Oral 250 450 Number 0 1 Bowel Movements Output, Urine 400 400 700 Physical Exam General Appearance: Alert, Oriented X3, Cooperative Skin: No Significant Lesion HEENT: Atraumatic Cardiovascular: Regular Rate, Normal S1, Normal S2, No Murmurs Lungs: insp and exp wheezing Abdomen: Normal Bowel Sounds, Soft, No Tenderness Extremities: trace pedal edema Current Medications: Current Medications Sig/Satish Start time Last Medication Dose Route Stop Time Status Admin Albuterol Sulfate 3 ML TID 09/19 1000 AC 09/23 INH 0935 Apixaban 5 MG BID 09/18 2199 AC 09/23 PO 0839 Aspirin 81 MG QPM 09/18 2199 AC 09/22 PO 2235 Atorvastatin Calcium 40 MG 0 09/19 1700 AC 09/22 PO 1659 Digoxin 0.125 MG 09/22 1700 AC 09/22 PO 1659 Diltiazem HCl 90 MG TID 09/18 2230 AC 09/23 PO 0839 Dipyridamole 50 MG ONE ONE 09/24 1200 AC Dextrose/Water 30 ML IV 09/26 0359 Docusate Sodium 200 MG BID 09/19 2200 AC 09/23 PO 0839 Doxazosin Mesylate 4 MG DAILY 09/19 1000 AC 09/23 PO 0839 Doxazosin Mesylate 2 MG QPM 09/18 2230 AC 09/22 PO 2235 Ferrous Sulfate 325 MG DAILY 09/19 1537 AC 09/23 PO 0839 Finasteride 5 MG DAILY 09/19 1000 AC 09/23 PO 0858 Fluticasone 2 PUF BID 09/18 2200 AC 09/23 Propionate INH 0840 Furosemide 40 MG DAILY 09/21 1000 AC 09/23 PO 0839 Ipratropium [place] 2.5 ML TID 09/19 1000 AC 09/23 INH 0935 Lactulose 20 GM DAILY PRN 09/19 1700 AC PO Lorazepam 2 MG QPM 09/19 2200 AC 09/22 PO 2235 Omeprazole 40 MG DAILY AC 09/19 0700 AC 09/23 PO 0654 Oxycodone HCl 60 MG BID 09/19 1000 AC 09/23 PO 0858 Oxycodone HCl 30 MG Q4P PRN 09/18 2315 AC 09/20 PO 0625 Polyethylene Glycol 17 GM DAILY 09/19 1000 AC 09/23 PO 0840 Potassium Chloride 40 MEQ BID 09/23 1215 UNVr PO 09/23 2201 Prednisone 5 MG DAILY 09/23 1000 AC 09/23 PO 0839 Tetrahydrozoline HCl 1 GTT BID 09/23 1215 UNVr OPH Tiotropium [place] 1 PUF DAILY 09/19 1000 AC 09/23 INH 0840 Trazodone HCl 200 MG QPM 09/19 2200 AC 09/22 PO 2235 Last 24 Hrs of Lab/Esteban Results Last 24 Hrs of Labs/Mics: Laboratory Tests 09/23/16 0719: Anion Gap 1 L, Estimated GFR > 60, BUN/Creatinine Ratio 20.0, Magnesium 1.9 Assessment/Plan Assessment: 81 year old gentleman with PMH atrial fibrillation on Eliquis, COPD on 2 L home O2 and chronic steroids, hyperlipidemia, HFpEF, hypertension and tachy-matty syndrome s/p permanent pacemaker current admission for shortness of breath.CXR showed interstitial pulmonary edema with small left pleural effusion. Patient is admitted to the telemetry floor and the following is the management: 1. Acute on chronic diastolic CHF * Patient has hx of HFpEF (EF 55-60%) * Continuous telemetry monitoring * on PO lasix 40 mg daily * Close monitoring of Is&Os with daily weights * Cardio on board, will be kept nothing by mouth past midnight for nuclear stress test on saturday * continue Digoxin, Check digoxin level on Saturday * Continue CHF diet 2. COPD, no acute exacerbation * We will continue with rapid steroid taper as recommended by pulmonology service (20 mg x 1 day, 10 mg x 1 day then continue on home 5 mg prednisone daily) * Continue to follow pulm recommendations * Continue home inhalers, TRC nebs as needed 3. History of CAD, HTN * Continue nitro patch, diltiazem 90 mg PO TID, ASA 81 mg PO daily * Continue eliquis 5 mg PO BID * Vital signs Q shift 4. Atrial fibrillation s/p PPM implantation * Continue cardizem for rate control * Anticoagulation with eliquis 5. Anemia * on started ferrous sulfate daily 6. Chronic pain * Continue home oxycodone and OxyContin * Continue trazodone 20 mg by mouth every night * Continue Ativan 2 mg at night 7. BPH * Continue Proscar 5 mg by mouth daily * Continue Cardura 4 mg by mouth daily FULL CODE DVTP: Eliquis CHF diet Mild pain pathways Problem List: 1. COPD (chronic obstructive pulmonary disease) 2. CHF exacerbation Pain Ratin Pain Location: none Pain Goal: Remain pain free Pain Plan: none Tomorrow's Labs & Rationales: bep for hypokalemia DVT/Prophylaxis: mechanical, pharmacological LOIS HOPPER MD 09/23/16 1418: Attending MD Review Statement Attending Statement Attending MD Statement: examined this patient, discuss w/resident/PA/CUSTOMER ASSISTANT, agreed w/resident/PA/CUSTOMER ASSISTANT, discussed with family, reviewed EMR data (avail), discussed with nursing, amended to note Attending Assessment/Plan: Patient seen and examined. Resting comfortably and not in any acute distress. No issues overnight reported by nursing staff. Heart rate Is better controlled today. Patient remains asymptomatic at rest. On examination lungs are clear to auscultation bilaterally. Recommendations: -Continue current rate control regimen. -Obtain digoxin level in the a.m. -Nothing by mouth past midnight for possible stress test in the morning. -Replete potassium level and repeat chemistry in the morning.
[2016-09-23 08:15] VITALS: BP 140/80
--- NOTE | 2016-09-23 12:05 | PN- Pulmonary ---
Subjective HPI/Critical Care Issues: pt seen and examined sitting in chair awaiting stress test tomorrow some rhonchi appears at respiratory baseline Objective Current Medications: Current Medications Sig/Satish Start time Last Medication Dose Route Stop Time Status Admin Albuterol Sulfate 3 ML TID 09/19 1000 AC 09/23 INH 0935 Apixaban 5 MG BID 09/18 2199 AC 09/23 PO 0839 Aspirin 81 MG QPM 09/18 220 AC 09/22 PO 2235 Atorvastatin Calcium 40 MG 1700 09/19 1700 AC 09/22 PO 1659 Digoxin 0.125 MG 09/22 1700 AC 09/22 PO 1659 Diltiazem HCl 90 MG TID 09/18 223 AC 09/23 PO 0839 Dipyridamole 50 MG ONE ONE 09/24 1200 AC Dextrose/Water 30 ML IV 09/26 0359 Docusate Sodium 200 MG BID 09/19 2199 AC 09/23 PO 0839 Doxazosin Mesylate 4 MG DAILY 09/19 1000 AC 09/23 PO 0839 Doxazosin Mesylate 2 MG QPM 09/18 2230 AC 09/22 PO 2235 Ferrous Sulfate 325 MG DAILY 09/19 1537 AC 09/23 PO 0839 Finasteride 5 MG DAILY 09/19 1000 AC 09/23 PO 0858 Fluticasone 2 PUF BID 09/18 2199 AC 09/23 Propionate INH 0840 Furosemide 40 MG DAILY 09/21 1000 AC 09/23 PO 0839 Ipratropium [place] 2.5 ML TID 09/19 1000 AC 09/23 INH 0935 Lactulose 20 GM DAILY PRN 09/19 170 AC PO Lorazepam 2 MG QPM 09/190 AC 09/22 PO 2235 Omeprazole 40 MG DAILY AC 09/19 0700 AC 09/23 PO 0654 Oxycodone HCl 60 MG BID 09/19 1000 AC 09/23 PO 0858 Oxycodone HCl 30 MG Q4P PRN 09/18 2315 AC 09/20 PO 0625 Polyethylene Glycol 17 GM DAILY 09/19 1000 AC 09/23 PO 0840 Prednisone 5 MG DAILY 09/23 1000 AC 09/23 PO 0839 Tiotropium [place] 1 PUF DAILY 09/19 1000 AC 09/23 INH 0840 Trazodone HCl 200 MG QPM 09/19 2200 AC 09/22 PO 2235 Vital Signs & I&O Last 24 Hrs of Vitals and I&O: Vital Signs Date Time Temp Pulse Resp B/P Pulse O2 O2 Flow FiO2 Ox Delivery Rate 09/23 0941 96 Nasal 3.0L Cannula 09/23 0815 97.1 76 20 140/80 96 Nasal 3.0L Cannula 09/23 0800 Nasal 3.0L Cannula 09/23 0000 Nasal 3.0L Cannula 09/22 2300 97.6 101 18 132/62 100 Nasal 3.0L Cannula 09/22 1659 119 128/58 09/22 1607 97.9 942 69 6119/58 97 Nasal 3.0L Cannula Intake & Output 09/23 1600 09/23 0800 09/23 0000 Intake Total 250 450 Output Total 400 400 700 Balance -400 -150 -250 Intake, IV 0 0 Intake, Oral 250 450 Number 0 1 Bowel Movements Output, Urine 400 400 700 Exam Other Physical Findings: gen awake and alert heent ncat cvs s1, s2 lungs ctab abd soft bs+ ext without edema Results Last 24 Hrs of Lab Results: Laboratory Tests 09/23/16 0719: Anion Gap 1 L, Estimated GFR > 60, BUN/Creatinine Ratio 20.0, Magnesium 1.9 Impression/Plan Impression/Plan Impression/Plan: Impression 81 year old man COPD on home o2 a.fib RVR Plan -monitor digoxin levels -nuclear stress test pending tomorrow -f/u cardiology -ins/outs -trc/nebs -steroid taper as ordered (5mg baseline) -keep spo2 >92% DVT prophylaxis (Eliquis)
[2016-09-23 13:02] VITALS: BP 130/56
[2016-09-23 17:19] VITALS: BP 131/64
[2016-09-23 22:23] VITALS: BP 144/64
[2016-09-24 00:49] VITALS: BP 140/60
--- NOTE | 2016-09-24 06:54 | PN- Housestaff ---
See Addendum Subjective Follow-up For: CHF exacerbation COPD with wheezing Atrial fibrillation Tele-Events Since Last Visit: Atrial fibrillation HR 75-93 bpm, PVCs. Subjective: Patient seen and examined at bedside this AM. He reports his respiratory status at baseline and he is amenable to stress test today. Patient denies chest pain or dizziness as well as orthopnea. Review of Systems Constitutional: Denies: chills, fever. EENTM: Denies: visual changes, nasal congestion. Cardiovascular: Denies: chest pain, palpitations. Respiratory: Denies: cough, wheezing. Gastrointestinal: Denies: abdominal pain, nausea. Genitourinary: Denies: dysuria. Musculoskeletal: Denies: back pain. Skin: Denies: rash. Neurological/Psychological: Denies: headache, tingling. Hematologic/Endocrine: Denies: bruising. Objective Last 24 Hrs of Vital Signs/I&O Vital Signs Date Time Temp Pulse Resp B/P Pulse O2 O2 Flow FiO2 Ox Delivery Rate 09/24 0846 94 Nasal 3.0L Cannula 09/24 0835 97.6 102 20 140/80 90 Nasal 3.0L Cannula 09/24 0821 92 Nasal 3.0L Cannula 09/24 0049 97.7 92 20 140/60 99 Nasal 3.0L Cannula 09/24 0000 97 Nasal 3.0L Cannula 09/23 2223 110 144/64 09/23 1950 98 Nasal 3.0L Cannula 09/23 1719 97.6 84 20 131/64 97 Nasal 3.0L Cannula 09/23 1621 92 131/64 09/23 1600 97 Nasal 3.0L Cannula 09/23 1302 91 130/56 Intake & Output 09/24 1600 09/24 0800 09/24 0000 Intake Total 0 560 Output Total 200 450 Balance -200 110 Intake, Oral 0 560 Output, Urine 200 450 Physical Exam General Appearance: Alert, Oriented X3, Cooperative, No Acute Distress Skin: No Significant Lesion HEENT: Atraumatic, Mucous Membr. moist/pink Neck: Supple, +2 Carotid Pulse wo Bruit Lymphatic: Cervical nl Cardiovascular: Irregularly irregular, normal intensity S1/S2 Lungs: Normal Air Movement, Bibasilar crackles without overt wheeze Abdomen: Normal Bowel Sounds, Soft Neurological: Normal Tone Extremities: No Clubbing, No Cyanosis, Bilateral 1+ LE edema Vascular: Pulses Symmetrical Current Medications: Current Medications Sig/Satish Start time Last Medication Dose Route Stop Time Status Admin Albuterol Sulfate 3 ML TID 09/19 1000 AC 09/24 INH 0844 Apixaban 5 MG BID 09/18 2200 AC 09/24 PO 0925 Aspirin 81 MG QPM 09/18 2200 AC 09/23 PO 2211 Atorvastatin Calcium 40 MG 1700 09/19 1700 AC 09/23 PO 1621 Digoxin 0.125 MG 1700 09/22 1700 DC 09/23 PO 1621 Diltiazem HCl 90 MG Q6 09/24 1200 UNVr PO Diltiazem HCl 90 MG TID 09/18 2230 DC 09/24 PO 0925 Dipyridamole 50 MG ONE ONE 09/24 1200 AC Dextrose/Water 30 ML IV 09/26 0359 Docusate Sodium 200 MG BID 09/19 2200 AC 09/24 PO 0925 Doxazosin Mesylate 4 MG DAILY 09/19 1000 AC 09/24 PO 0925 Doxazosin Mesylate 2 MG QPM 09/18 2230 AC 09/23 PO 2211 Ferrous Sulfate 325 MG DAILY 09/19 1537 AC 09/24 PO 0925 Finasteride 5 MG DAILY 09/19 1000 AC 09/24 PO 0925 Fluticasone 2 PUF BID 09/18 2200 AC 09/24 Propionate INH 0938 Furosemide 40 MG DAILY 09/21 1000 AC 09/24 PO 0925 Ipratropium [place] 2.5 ML TID 09/19 1000 AC 09/24 INH 0844 Lactulose 20 GM DAILY PRN 09/19 1700 AC PO Lorazepam 2 MG QPM 09/19 2200 AC 09/23 PO 2214 Metoprolol Tartrate 12.5 MG BID 09/24 2200 UNVr PO Omeprazole 40 MG DAILY AC 09/19 0700 AC 09/23 PO 0654 Oxycodone HCl 60 MG BID 09/19 1000 AC 09/24 PO 0936 Oxycodone HCl 30 MG Q4P PRN 09/18 2315 AC 09/20 PO 0625 Polyethylene Glycol 17 GM DAILY 09/19 1000 AC 09/24 PO 0938 Potassium Chloride 40 MEQ BID 09/23 1215 DC 09/23 PO 09/23 2201 2213 Prednisone 5 MG DAILY 09/23 1000 AC 09/24 PO 0925 Tetrahydrozoline HCl 1 GTT BID 09/23 1215 AC 09/24 OPH 0930 Tiotropium [place] 1 PUF DAILY 09/19 1000 AC 09/24 INH 0926 Trazodone HCl 200 MG QPM 09/19 2200 AC 09/23 PO 2211 Last 24 Hrs of Lab/Esteban Results Last 24 Hrs of Labs/Mics: Laboratory Tests 09/24/16 0640: Anion Gap 5, Estimated GFR > 60, BUN/Creatinine Ratio 22.9, Magnesium 1.9, Digoxin 0.6 L Orders ECHO Findings: CONCLUSIONS 1. THis was a technically difficult examination. 2. Mild aortic sclerosi is present with no valvular stenosis or insufficiency. 3. Mitral leaflet thickening is present with minimal to mild mitral insufficiency and moderate left atrial enlargement 4. There is no significant pericardial fluid present. 5. THe left ventricular chamber size is normal with mild to moderate concentric hypertrophy and a normal ejection fraction. 6. The right heart structures were not optimally visualized. Minimal to mild tricuspid and pulmonic insufficiency are present. The RV systolic pressure could not be accurately assessed. 7. Pacemaker wires are present in the right heart chambers. Assessment/Plan Assessment: Mr. Palacios is a pleasant 81 year old gentleman with PMH atrial fibrillation on Eliquis, COPD on 2 L home O2 and chronic steroids, hyperlipidemia, HFpEF, hypertension and tachy-matty syndrome s/p permanent pacemaker who presented with chief complaint of shortness of breath. Patient has a home oximeter and noted decreased O2 saturation to 84%, requiring him to increase home O2 via NC to 3 L. In the ED: Vital signs showed T 98.2, HR 118, RR 18, BP 149/79 and O2 sat 94% on 4L NC. Labs showed WBC 5.5, H&H 8.4/26.1, Plt 222, Na 137, K 3.7, Cl 94, HCO3 34 , BUN 11, cre 0.7, glu 201, lactic acid 1.8, troponin 0.02 and dig <0.4. CXR was done and showed interstitial pulmonary edema with small left pleural effusion. EKG showed HR 103, LA 140, QRS 110, paced rhythm. Patient is admitted to the telemetry floor and the following is the management: 1. Acute on chronic diastolic CHF * Patient has hx of HFpEF (EF 55-60%), echo in house showed normal EF with pacemaker in place * Continuous telemetry monitoring * Continue PO lasix 40 mg daily with close monitoring of Is&Os/daily weights * Cardio consult with Dr. Lora appreciated, he suggested persantine nuclear stress test today, patient NPO pending completion of this test * F/U stress test results * Continue CHF diet 2. 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 Atrial fibrillation s/p PPM implantation * Cardizem increased to 90 mg PO Q6 for improved rate control and low dose metoprolol 12.5 mg PO BID added today (monitor closely for bronchospasm in setting of COPD) * Digoxin discontinued today after concerns for mental status changes/lethargy * Anticoagulation with eliquis 4. History of CAD, HTN * Continue nitro patch, diltiazem 90 mg PO Q8h, metoprolol 12.5 mg PO BID, ASA 81 mg PO daily * Continue eliquis 5 mg PO BID * Vital signs Q shift 5. Acute anemia * H&H slightly below baseline on presentation, no active bleeding noted * Fe panel checked and only abnormality noted was low Fe * We have started ferrous sulfate daily * Repeat CBC intermittently to monitor 6. Chronic pain * Continue home oxycodone and OxyContin * Continue trazodone 20 mg by mouth every night * Continue Ativan 2 mg at night 7. BPH * Continue Proscar 5 mg by mouth daily * Continue Cardura 4 mg by mouth daily FULL CODE DVTP: Eliquis CHF diet after stress test Mild pain pathways Problem List: 1. COPD 2. CAD 3. Dyslipidemia 4. Obstructive sleep apnea syndrome 5. S/P CABG 6. SOB (shortness of breath) 7. Acute and chronic respiratory failure with hypoxia 8. CHF exacerbation Pain Ratin Pain Location: n/a Pain Goal: Remain pain free Pain Plan: Mild pain pathway Tomorrow's Labs & Rationales: None.
[2016-09-24 08:35] VITALS: BP 140/80
--- NOTE | 2016-09-24 09:22 | PN- Pulmonary ---
Subjective HPI/Critical Care Issues: The patient is awake and alert. As per the patient's daughter, the patient has been lethargic and sleeping all day long since being started on digoxin. The patient denies any shortness of breath, chest congestion, significant sputum production, or increased shortness of breath. He has no chest pain. There were no overnight events reported. Objective Current Medications: Current Medications Sig/Satish Start time Last Medication Dose Route Stop Time Status Admin Albuterol Sulfate 3 ML TID 09/19 1000 AC 09/24 INH 0844 Apixaban 5 MG BID 09/18 2200 AC 09/23 PO 2212 Aspirin 81 MG QPM 09/18 2200 AC 09/23 PO 2211 Atorvastatin Calcium 40 MG 1700 09/19 1700 AC 09/23 PO 1621 Digoxin 0.125 MG 09/22 170 AC 09/23 PO 1621 Diltiazem HCl 90 MG TID 09/18 2230 AC 09/23 PO 2211 Dipyridamole 50 MG ONE ONE 09/24 1200 AC Dextrose/Water 30 ML IV 09/26 0359 Docusate Sodium 200 MG BID 09/190 AC 09/23 PO 2212 Doxazosin Mesylate 4 MG DAILY 09/19 1000 AC 09/23 PO 0839 Doxazosin Mesylate 2 MG QPM 09/18 2230 AC 09/23 PO 2211 Ferrous Sulfate 325 MG DAILY 09/19 1537 AC 09/23 PO 0839 Finasteride 5 MG DAILY 09/19 1000 AC 09/23 PO 0858 Fluticasone 2 PUF BID 09/18 2200 AC 09/23 Propionate INH 2214 Furosemide 40 MG DAILY 09/21 1000 AC 09/23 PO 0839 Ipratropium [place] 2.5 ML TID 09/19 1000 AC 09/24 INH 0844 Lactulose 20 GM DAILY PRN 09/19 1700 AC PO Lorazepam 2 MG QPM 09/19 2200 AC 09/23 PO 2214 Omeprazole 40 MG DAILY AC 09/19 0700 AC 09/23 PO 0654 Oxycodone HCl 60 MG BID 09/19 1000 AC 09/23 PO 2034 Oxycodone HCl 30 MG Q4P PRN 09/18 2315 AC 09/20 PO 0625 Polyethylene Glycol 17 GM DAILY 09/19 1000 AC 09/23 PO 0840 Potassium Chloride 40 MEQ BID 09/23 1215 DC 09/23 PO 09/23 2201 2213 Prednisone 5 MG DAILY 09/23 1000 AC 09/23 PO 0839 Tetrahydrozoline HCl 1 GTT BID 09/23 1215 AC 09/23 OPH 2213 Tiotropium [place] 1 PUF DAILY 09/19 1000 AC 09/23 INH 0840 Trazodone HCl 200 MG QPM 09/19 2200 AC 09/23 PO 2211 Vital Signs & I&O Last 24 Hrs of Vitals and I&O: Vital Signs Date Time Temp Pulse Resp B/P Pulse O2 O2 Flow FiO2 Ox Delivery Rate 09/24 0846 94 Nasal 3.0L Cannula 09/24 0835 97.6 102 20 140/80 90 Nasal 3.0L Cannula 09/24 0821 92 Nasal 3.0L Cannula 09/24 0049 97.7 92 20 140/60 99 Nasal 3.0L Cannula 09/24 0000 97 Nasal 3.0L Cannula 09/23 2223 110 144/64 09/23 1950 98 Nasal 3.0L Cannula 09/23 1719 97.6 84 20 131/64 97 Nasal 3.0L Cannula 09/23 1621 92 131/64 09/23 1600 97 Nasal 3.0L Cannula 09/23 1302 91 130/56 09/23 0941 96 Nasal 3.0L Cannula Intake & Output 09/24 1600 09/24 0800 09/24 0000 Intake Total 0 560 Output Total 200 450 Balance -200 110 Intake, Oral 0 560 Output, Urine 200 450 Exam General Appearance: no apparent distress, alert, awake, comfortable Head: atraumatic, normal appearance Neck: normal inspection Respiratory: chest non-tender, no respiratory distress, bilateral fine crackles basal, no wheezing Cardiovascular: irregularly irregular Abdomen: normal bowel sounds, soft, non-tender Extremities: normal inspection, normal capillary refill, normal range of motion Neurologic/Psychiatric: no motor/sensory deficits, awake, alert, oriented x 3 Results Last 24 Hrs of Lab Results: Laboratory Tests 09/24/16 0640: Anion Gap 5, Estimated GFR > 60, BUN/Creatinine Ratio 22.9, Magnesium 1.9, Digoxin 0.6 L Last 24 Hrs of Micro Results: Sputum positive for pneudomonas. Impression/Plan Impression/Plan Impression/Plan: 1. COPD on 2 L home oxygen and chronic 5 mg prednisone daily. Sputum positive for gram negative rods, likely colonization. No evidence of active infection ( afebrile, normal white blood cell count). 2. Hyperlipidemia and hypertension 3. Diastolic congestive heart failure with ejection fraction 60%, elevated right ventricular systolic pressure 46 mmhg 4. Atrial fibrillation, rate difficult to control on Eliquis. 5. Sick sinus syndrome, status post permanent pacemaker Recommendations: * Monitor digoxin levels. I discussed the possibility of changing the patient to a different medication with cardiology due to the patient's increased lethargy. * Monitor off antibiotics as pseudomonas is likely colonization. * Please check a follow-up chest x-ray today. * Await nuclear stress test. * Continue chronic prednisone dose of 5 mg daily. * Continue nebs/TRC/Spiriva and Flovent. * DVT prophylaxis, on Eliquis. * Increase activity, ambulate.
--- NOTE | 2016-09-24 09:52 | PN- Cardiology ---
Subjective Subjective: The patient is currently comfortable. No chest pain. Shortness of breath is improved. No palpitations. His family notes that he has been mildly confused over the past 24 hours, and that he has had this reaction to digoxin multiple times in the past. No nausea or vomiting. No lightheadedness or dizziness. laboratory monitor reveals atrial flutter ablation with ventricular rate which has been mostly under control, currently mildly elevated. Objective Vital Signs and I&Os Vital Signs Date Time Temp Pulse Resp B/P Pulse O2 O2 Flow FiO2 Ox Delivery Rate 09/24 0846 94 Nasal 3.0L Cannula 09/24 0835 97.6 102 20 140/80 90 Nasal 3.0L Cannula 09/24 0821 92 Nasal 3.0L Cannula 09/24 0049 97.7 92 20 140/60 99 Nasal 3.0L Cannula 09/24 0000 97 Nasal 3.0L Cannula 09/23 2223 110 144/64 09/23 1950 98 Nasal 3.0L Cannula 09/23 1719 97.6 84 20 131/64 97 Nasal 3.0L Cannula 09/23 1621 92 131/64 09/23 1600 97 Nasal 3.0L Cannula 09/23 1302 91 130/56 Intake & Output 09/24 1600 09/24 0800 09/24 0000 09/23 1600 09/23 0800 09/23 0000 Intake Total 0 560 640 250 450 Output Total 200 450 775 400 700 Balance -200 110 -135 -150 -250 Intake, IV 0 0 Intake, Oral 0 560 640 250 450 Number 0 1 Bowel Movements Output, Urine 200 450 775 400 700 Physical Exam: Gen: NAD HEENT: normal Lungs: Few rales in the bases, normal resp. effort Heart: Irregular, S1, S2, 1/6 systolic murmur Abdomen: Soft, nontender, no masses Extremities: No clubbing, cyanosis, or edema. Neuro: Alert and oriented x 3, cranial nerves intact Current Medications: Current Medications Sig/Satish Start time Last Medication Dose Route Stop Time Status Admin Albuterol Sulfate 3 ML TID 09/19 1000 AC 09/24 INH 0844 Apixaban 5 MG BID 09/18 2199 AC 09/24 PO 0925 Aspirin 81 MG QPM 09/18 220 AC 09/23 PO 2211 Atorvastatin Calcium 40 MG 1700 09/19 1700 AC 09/23 PO 1621 Digoxin 0.125 MG 169925 1700 AC 09/23 PO 1621 Diltiazem HCl 90 MG TID 09/18 2230 AC 09/24 PO 0925 Dipyridamole 50 MG ONE ONE 09/24 1200 AC Dextrose/Water 30 ML IV 09/26 0359 Docusate Sodium 200 MG BID 09/19 2200 AC 09/24 PO 0925 Doxazosin Mesylate 4 MG DAILY 09/19 1000 AC 09/24 PO 0925 Doxazosin Mesylate 2 MG QPM 09/18 2230 AC 09/23 PO 2211 Ferrous Sulfate 325 MG DAILY 09/19 1537 AC 09/24 PO 0925 Finasteride 5 MG DAILY 09/19 1000 AC 09/24 PO 0925 Fluticasone 2 PUF BID 09/18 2200 AC 09/24 Propionate INH 0938 Furosemide 40 MG DAILY 09/21 1000 AC 09/24 PO 0925 Ipratropium [place] 2.5 ML TID 09/19 1000 AC 09/24 INH 0844 Lactulose 20 GM DAILY PRN 09/19 1700 AC PO Lorazepam 2 MG QPM 09/19 2200 AC 09/23 PO 2214 Omeprazole 40 MG DAILY AC 09/19 0700 AC 09/23 PO 0654 Oxycodone HCl 60 MG BID 09/19 1000 AC 09/24 PO 0936 Oxycodone HCl 30 MG Q4P PRN 09/18 2315 AC 09/20 PO 0625 Polyethylene Glycol 17 GM DAILY 09/19 1000 AC 09/24 PO 0938 Potassium Chloride 40 MEQ BID 09/23 1215 DC 09/23 PO 09/23 2201 2213 Prednisone 5 MG DAILY 09/23 1000 AC 09/24 PO 0925 Tetrahydrozoline HCl 1 GTT BID 09/23 1215 AC 09/24 OPH 0930 Tiotropium [place] 1 PUF DAILY 09/19 1000 AC 09/24 INH 0926 Trazodone HCl 200 MG QPM 09/19 2200 AC 09/23 PO 2211 Results Last 48 Hrs of Labs/Mics: Laboratory Tests 09/24/16 0640: Anion Gap 5, Estimated GFR > 60, BUN/Creatinine Ratio 22.9, Magnesium 1.9, Digoxin 0.6 L 09/23/16 0719: Anion Gap 1 L, Estimated GFR > 60, BUN/Creatinine Ratio 20.0, Magnesium 1.9 Assessment/Plan Assessment/Plan Assessment: 1. Hypertension 2. Diastolic congestive heart failure 3. Chronic atrial flutter ablation, with difficult to control rate. Anticoagulated on eliquis. 4. Possible mental status changes secondary to digoxin. The patient has a history of this side effect from digoxin multiple times in the past as per his family. Plan: * Discontinue digoxin given possible side effect of mental status changes. * Increase diltiazem dose to 90 mg PO q 6 hours. * Add low-dose of metoprolol 12.5 mg PO twice a day for additional rate control. The patient is currently free of wheezing. We will need to monitor for exacerbation of bronchospasm secondary to the metoprolol. * Pharmacologic nuclear stress test scheduled for today. Continue telemetry? Yes
--- NOTE | 2016-09-24 14:29 | IV DIPYRIDAMOLE NUCLEAR STRESS ---
Clinical Diagnosis: Tachycardia, Bradycardia with Permanent Pacemaker Implantation Care Clinician: Fatemeh Jordan IV DIPYRIDAMOLE INFUSED: 50 mg IV AMINOPHYLLINE INFUSED: 0 mg PATIENT WEIGHT: 192 lbs INTERPRETATION: The patient's baseline EKG showed atrial fibrillation at 101 BPM. Baseline B/P 130/68. The patient received 50 mg of dipyridamole infused intravenously over a 4 minute period. TC-99M or Myoview was injected after dipyridamole infusion. The patient tolerated the infusion well. There were no EKG changes seen following pharmacologic infusion. IMPRESSION: The test was supervised by the interpreting Teacher Aide Clerical, who was in attendance during the entire test. No EKG evidence of stress induced myocardial ischemia. See separately dictated Nuclear Report.
[2016-09-24] MEDS ORDERED: FERROUS SULFAT325 M3 PO (15:24)
[2016-09-24] MEDS ORDERED: DILTIAZEM HCL90 MG PO (15:26)
[2016-09-24] MEDS ORDERED: METOPROLOL TART25 M1 PO (15:26)
[2016-09-24] MEDS ORDERED: LASIX40 M1 PO (15:27)
--- NOTE | 2016-09-24 15:30 | Patient Discharge Instructions ---
Discharge Instructions General Discharge Information You were seen/treated for: Congestive heart failure COPD Nuclear Stress test Atrial fibrillation Special Instructions: Please follow up with your PCP within 7 days of discharge. Please follow up with Dr. Lora within 7 days of discharge. Please follow up with your manager maritime Dr. Ware at your scheduled appt next week. Please follow up at your scheduled CHF clinic appt tomorrow. Please take all medications as directed. Please return if you notice worsening of your symptoms or with any concerns. Diet Recommended Diet: Heart Healthy Activity Activity Self Limited: Yes Acute Coronary Syndrome Inclusion Criteria At DC or during hospital stay patient has or had the following: ACS DIAGNOSIS No Discharge Core Measures Meds if any: Prescribed or Continued at Discharge Meds if any: NOT Prescribed or Continued at Discharge Congestive Heart Failure Inclusion Criteria At DC or during hospital stay patient has or had the following: CHF DIAGNOSIS Yes Discharge Core Measures Meds if any: Prescribed or Continued at Discharge JUAN MANUEL/ARB for EF <40% No Meds if any: NOT Prescribed or Continued at Discharge Comment EF not <40 Cerebrovascular accident Inclusion Criteria At DC or during hospital stay patient has or had the following: CVA/TIA Diagnosis No Discharge Core Measures Meds if any: Prescribed or Continued at Discharge Meds if any: NOT Prescribed or Continued at Discharge Venous thromboembolism Inclusion Criteria VTE Diagnosis No VTE Type NONE VTE Confirmed by (Test) NONE Discharge Core Measures - Per Current guidelines, there needs to be overlap - treatment for the first 5 days of Warfarin therapy. - If discharged on Warfarin prior to 5 days of - overlap therapy, the patient will need to be - assessed for post discharge needs including - *Post discharge parental anticoagulation - *Warfarin and/or parental anticoagulation education - *Follow up date to check INR post discharge At least 5 days overlap therapy as Inpatient No Meds if any: Prescribed or Continued at Discharge Note: Overlap Therapy is Warfarin and Anticoagulant Meds if any: NOT Prescribed or Continued at Discharge
[2016-09-24 16:56] VITALS: BP 132/78
--- NOTE | 2016-09-24 17:03 | RADIOLOGY REPORT ---
EXAMINATION: XR CHEST CLINICAL INFORMATION: Shortness of breath and wheezing. COMPARISON: CXR from 09/18/2016 TECHNIQUE: 2 views of the chest were obtained. FINDINGS: Large body habitus. There is a left prepectoral cardiac pacemaker with transvenous leads extending to the right atrium and right ventricle. Surgical changes from prior coronary artery bypass graft surgery. Stable appearance of the enlarged cardiac silhouette. Although interstitial opacities of the lower lung zones are not appreciably changed compared to 09/18/2016, there has been interval improvement with decreased interstitial opacity in the perihilar region of the right upper lobe, and resolution of interstitial opacity in the perihilar region of the left upper lobe. No evidence of pleural effusion, pneumothorax or other significant interval change. IMPRESSION: 1. Interstitial opacities (from edema and/or pneumonitis) have decreased within the upper lobes compared to 09/18/2016. 2. Stable cardiomegaly.
--- NOTE | 2016-09-24 17:48 | NUCLEAR MEDICINE REPORT ---
EXAMINATION: PERSANTINE STRESS AND RESTING SPECT MYOCARDIAL PERFUSION IMAGING STUDY WITH GATED SPECT IMAGES: CLINICAL INDICATION: CAD, hypertension COMPARISON: Myocardial perfusion imaging dated 09/29/2010 TECHNIQUE: Regional myocardial perfusion was assessed using a 1 day protocol. Stress images were obtained on 09/24/2016 following the intravenous administration of 25.4 mCi Tc 99m Myoview. Stress consisted of 50 mg Persantine given intravenously. Rest images were obtained 09/24/2016 following the intravenous administration of 41.7 mCi Technetium 99m Myoview. Single photon emission tomographic (SPECT) images were obtained. SPECT images were acquired in a 64 x 64 matrix of 64 projections over 180 degrees. There were reconstructed into standard short axis, horizontal and vertical long axis cardiac projections. FINDINGS: The post stress images demonstrate mild prominence of the left ventricular chamber size. There is mildly decreased activity in the inferior wall which may be partly attributed to diaphragmatic attenuation. It persists on the resting images. No evidence of a reversible perfusion abnormality identified. Decreased activity in the inferior wall of the left ventricular myocardium, but slightly more pronounced compared to the post stress images. The images were obtained using a gated SPECT technique, which permits visualization of wall motion and calculation of the left ventricular ejection fraction. There is mild hypokinesia of the inferior wall. The calculated left ventricular ejection fraction is 52% on the stress study. IMPRESSION: 1. Mild prominence of the left ventricular chamber size. 2. Slightly decreased perfusion in the inferior wall worse on the resting images is partly attributed to diaphragmatic attenuation. No evidence of stress-induced ischemia. 3. Mild hypokinesia of the inferior wall. 4. Normal ejection fraction
[2016-09-24 23:49] VITALS: BP 120/64
--- NOTE | 2016-09-25 06:58 | PN- Housestaff ---
See Addendum Subjective Follow-up For: CHF excerbation CAD Atrial fibrillation Tele-Events Since Last Visit: Atrial fibrillation HR 74-91, no overnight events. Subjective: Patient seen and examined at bedside this AM. He is resting comfortably and reports he is back to his baseline respirtatory status. He denies any complaints. Review of Systems Constitutional: Denies: chills, fever. EENTM: Denies: visual changes. Cardiovascular: Denies: chest pain, palpitations. Respiratory: Denies: cough, short of breath. Gastrointestinal: Denies: abdominal pain, nausea, vomiting. Genitourinary: Denies: dysuria. Musculoskeletal: Denies: back pain. Skin: Denies: rash. Neurological/Psychological: Denies: confusion, headache. Hematologic/Endocrine: Denies: bruising, bleeding. Objective Last 24 Hrs of Vital Signs/I&O Vital Signs Date Time Temp Pulse Resp B/P Pulse O2 O2 Flow FiO2 Ox Delivery Rate 09/25 1010 95 120/70 09/25 0904 97.9 95 16 120/70 95 Nasal 5.0L Cannula 09/25 0816 96 Nasal 3.0L Cannula 09/25 0800 Nasal 3.0L Cannula 09/25 0000 Nasal 3.0L Cannula 09/24 2349 97.9 77 12 120/64 96 Nasal Cannula 09/24 1940 98 Nasal 3.0L Cannula 09/24 1656 98.2 115 20 132/78 94 Nasal Cannula 09/24 1600 Nasal 3.0L Cannula Intake & Output 09/25 1600 09/25 0800 09/25 0000 Intake Total 60 250 Output Total 250 1200 Balance -190 -950 Intake, IV 10 10 Intake, Oral 50 240 Output, Urine 250 1200 Patient 193 lb Weight Physical Exam General Appearance: Alert, Oriented X3, Cooperative, No Acute Distress Skin: No Significant Lesion HEENT: Atraumatic, PERRLA, Mucous Membr. moist/pink Neck: Supple, No JVD Lymphatic: Cervical nl Cardiovascular: Irregularly irregular Lungs: Normal Air Movement, Wheezing bilaterally Abdomen: Normal Bowel Sounds, Soft Neurological: Normal Speech, Normal Tone Extremities: No Clubbing, No Cyanosis, Minimal bilateral lower extremity edema Current Medications: Current Medications Sig/Satish Start time Last Medication Dose Route Stop Time Status Admin Albuterol Sulfate 3 ML TID 09/19 1000 AC 09/25 INH 0811 Apixaban 5 MG BID 09/18 2200 AC 09/25 PO 1010 Aspirin 81 MG QPM 09/18 2200 AC 09/24 PO 2257 Atorvastatin Calcium 40 MG 1700 09/19 1700 AC 09/24 PO 1650 Diltiazem HCl 90 MG Q6 09/24 1200 AC 09/25 PO 0658 Dipyridamole 50 MG ONE ONE 09/24 1200 AC Dextrose/Water 30 ML IV 09/26 0359 Docusate Sodium 200 MG BID 09/19 2200 AC 09/25 PO 1010 Doxazosin Mesylate 4 MG DAILY 09/19 1000 AC 09/25 PO 1009 Doxazosin Mesylate 2 MG QPM 09/18 2230 AC 09/24 PO 2257 Ferrous Sulfate 325 MG DAILY 09/19 1537 AC 09/25 PO 1010 Finasteride 5 MG DAILY 09/19 1000 AC 09/25 PO 1011 Fluticasone 2 PUF BID 09/18 2200 AC 09/25 Propionate INH 1012 Furosemide 40 MG DAILY 09/21 1000 AC 09/25 PO 1010 Ipratropium [place] 2.5 ML TID 09/19 1000 AC 09/25 INH 0815 Lactulose 20 GM DAILY PRN 09/19 1700 AC PO Lorazepam 2 MG QPM 09/19 2200 AC 09/24 PO 2257 Metoprolol Tartrate 12.5 MG BID 09/24 2200 AC 09/25 PO 1010 Omeprazole 40 MG DAILY AC 09/19 0700 AC 09/25 PO 0658 Oxycodone HCl 60 MG BID 09/19 1000 AC 09/25 PO 1008 Oxycodone HCl 30 MG Q4P PRN 09/18 2315 AC 09/20 PO 0625 Polyethylene Glycol 17 GM DAILY 09/19 1000 AC 09/25 PO 1011 Prednisone 5 MG DAILY 09/23 1000 AC 09/25 PO 1011 Tetrahydrozoline HCl 1 GTT BID 09/23 1215 AC 09/25 OPH 1014 Tiotropium [place] 1 PUF DAILY 09/19 1000 AC 09/25 INH 1012 Trazodone HCl 200 MG QPM 09/19 2200 AC 09/24 PO 2257 Last 24 Hrs of Lab/Esteban Results Last 24 Hrs of Labs/Mics: Laboratory Tests 09/25/16 0645: Anion Gap 8, Estimated GFR > 60, BUN/Creatinine Ratio 24.3 Assessment/Plan Assessment: Mr. Palacios is a pleasant 81 year old gentleman with PMH atrial fibrillation on Eliquis, COPD on 2 L home O2 and chronic steroids, hyperlipidemia, HFpEF, hypertension and tachy-matty syndrome s/p permanent pacemaker who presented with chief complaint of shortness of breath. Patient has a home oximeter and noted decreased O2 saturation to 84%, requiring him to increase home O2 via NC to 3 L. In the ED: Vital signs showed T 98.2, HR 118, RR 18, BP 149/79 and O2 sat 94% on 4L NC. Labs showed WBC 5.5, H&H 8.4/26.1, Plt 222, Na 137, K 3.7, Cl 94, HCO3 34 , BUN 11, cre 0.7, glu 201, lactic acid 1.8, troponin 0.02 and dig <0.4. CXR was done and showed interstitial pulmonary edema with small left pleural effusion. EKG showed HR 103, KS 140, QRS 110, paced rhythm. Patient is admitted to the telemetry floor and the following is the management: 1. Acute on chronic diastolic CHF * Patient has hx of HFpEF (EF 55-60%), echo in house showed normal EF with pacemaker in place * Continuous telemetry monitoring * Continue PO lasix 40 mg daily with close monitoring of Is&Os/daily weights * Patient s/p persantine stess test, showed no exercise induced ischemia, it did show mild hypokinesia of inferior wall * Patient stable for discharge with close follow up at Dr. Mayfield office within 7 days of discharge * Continue CHF diet 2. 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 Ware at scheduled appt next week 3. Atrial fibrillation s/p PPM implantation * Cardizem increased to 90 mg PO Q6 for improved rate control and low dose metoprolol 12.5 mg PO BID added yesterday * Patient has been tolerating both well and his heart rate is currently well controlled on this regimen (patient will be discharged on these medications with close follow up to Dr. Lora) * Digoxin discontinued after concerns for mental status changes/lethargy * Anticoagulation with eliquis to continue after discharge 4. History of CAD, HTN * Continue nitro patch, diltiazem 90 mg PO Q6h, metoprolol 12.5 mg PO BID, ASA 81 mg PO daily * Continue eliquis 5 mg PO BID * Vital signs Q shift 5. Acute anemia * H&H slightly below baseline on presentation, no active bleeding noted * Fe panel checked and only abnormality noted was low Fe * We have started ferrous sulfate daily, continue after discharge 6. Chronic pain * Continue home oxycodone and OxyContin * Continue trazodone 20 mg by mouth every night * Continue Ativan 2 mg at night 7. BPH * Continue Proscar 5 mg by mouth daily * Continue Cardura 4 mg by mouth daily FULL CODE DVTP: Eliquis CHF diet Mild pain pathways Problem List: 1. CAD 2. COPD 3. Dyslipidemia 4. S/P CABG 5. SOB (shortness of breath) 6. DVT prophylaxis 7. Full code status 8. Acute and chronic respiratory failure with hypoxia 9. CHF exacerbation 10. (HFpEF) heart failure with preserved ejection fraction Pain Ratin Pain Location: n/a Pain Goal: Remain pain free Pain Plan: Mild pain pathway Tomorrow's Labs & Rationales: Discharge today.
[2016-09-25 09:04] VITALS: BP 120/70
--- NOTE | 2016-09-25 09:30 | PN- Pulmonary ---
Subjective HPI/Critical Care Issues: The patient is awake and alert. He is feeling markedly improved today. There were no overnight events reported. Objective Current Medications: Current Medications Sig/Satish Start time Last Medication Dose Route Stop Time Status Admin Albuterol Sulfate 3 ML TID 09/19 1000 AC 09/25 INH 0811 Apixaban 5 MG BID 09/18 2200 AC 09/24 PO 2257 Aspirin 81 MG QPM 09/18 2200 AC 09/24 PO 2257 Atorvastatin Calcium 40 MG 1700 09/19 1700 AC 09/24 PO 1650 Digoxin 0.125 MG 1700 09/22 1700 DC 09/23 PO 1621 Diltiazem HCl 90 MG Q6 09/24 1200 AC 09/25 PO 0658 Diltiazem HCl 90 MG TID 09/18 223 DC 09/24 PO 0925 Dipyridamole 50 MG ONE ONE 09/24 1200 AC Dextrose/Water 30 ML IV 09/26 0359 Docusate Sodium 200 MG BID 09/19 2200 AC 09/24 PO 2257 Doxazosin Mesylate 4 MG DAILY 09/19 1000 AC 09/24 PO 0925 Doxazosin Mesylate 2 MG QPM 09/18 2230 AC 09/24 PO 2257 Ferrous Sulfate 325 MG DAILY 09/19 1537 AC 09/24 PO 0925 Finasteride 5 MG DAILY 09/19 1000 AC 09/24 PO 0925 Fluticasone 2 PUF BID 09/18 2199 AC 09/24 Propionate INH 2257 Furosemide 40 MG DAILY 09/21 1000 AC 09/24 PO 0925 Ipratropium [place] 2.5 ML TID 09/19 1000 AC 09/25 INH 0815 Lactulose 20 GM DAILY PRN 09/19 1700 AC PO Lorazepam 2 MG QPM 09/19 2200 AC 09/24 PO 2257 Metoprolol Tartrate 12.5 MG BID 09/24 2200 AC 09/24 PO 2257 Omeprazole 40 MG DAILY AC 09/19 0700 AC 09/25 PO 0658 Oxycodone HCl 60 MG BID 09/19 1000 AC 09/24 PO 2026 Oxycodone HCl 30 MG Q4P PRN 09/18 2315 AC 09/20 PO 0625 Polyethylene Glycol 17 GM DAILY 09/19 1000 AC 09/24 PO 0938 Prednisone 5 MG DAILY 09/23 1000 AC 09/24 PO 0925 Tetrahydrozoline HCl 1 GTT BID 09/23 1215 AC 09/24 OPH 2257 Tiotropium [place] 1 PUF DAILY 09/19 1000 AC 09/24 INH 0926 Trazodone HCl 200 MG QPM 09/19 2200 AC 09/24 PO 2257 Vital Signs & I&O Last 24 Hrs of Vitals and I&O: Vital Signs Date Time Temp Pulse Resp B/P Pulse O2 O2 Flow FiO2 Ox Delivery Rate 09/25 0904 97.9 95 16 120/70 95 Nasal 5.0L Cannula 09/25 0816 96 Nasal 3.0L Cannula 09/25 0000 Nasal 3.0L Cannula 09/24 2349 97.9 77 12 120/64 96 Nasal Cannula 09/24 1940 98 Nasal 3.0L Cannula 09/24 1656 98.2 115 20 132/78 94 Nasal Cannula 09/24 1600 Nasal 3.0L Cannula Intake & Output 09/25 1600 09/25 0800 09/25 0000 Intake Total 60 250 Output Total 250 1200 Balance -190 -950 Intake, IV 10 10 Intake, Oral 50 240 Output, Urine 250 1200 Patient 193 lb Weight Physical Exam: Gen: NAD HEENT: normal Lungs: Few rales in the bases, normal resp. effort Heart: Irregular, S1, S2, 1/6 systolic murmur Abdomen: Soft, nontender, no masses Extremities: No clubbing, cyanosis, or edema. Neuro: Alert and oriented x 3, cranial nerves intact Results Last 24 Hrs of Lab Results: Laboratory Tests 09/25/16 0645: Anion Gap 8, Estimated GFR > 60, BUN/Creatinine Ratio 24.3 Diagnostic Data CXR Findings: 1. Interstitial opacities (from edema and/or pneumonitis) have decreased within the upper lobes compared to 09/18/2016. 2. Stable cardiomegaly. Miscellaneous Findings: Nuclear stress test: 1. Mild prominence of the left ventricular chamber size. 2. Slightly decreased perfusion in the inferior wall worse on the resting images is partly attributed to diaphragmatic attenuation. No evidence of stress-induced ischemia. 3. Mild hypokinesia of the inferior wall. 4. Normal ejection fraction Impression/Plan Impression/Plan Impression/Plan: 1. COPD on 2 L home oxygen and chronic 5 mg prednisone daily. Sputum positive for gram negative rods, likely colonization. No evidence of active infection ( afebrile, normal white blood cell count). 2. Hyperlipidemia and hypertension 3. Diastolic congestive heart failure with preserved ejection fraction. 4. Atrial fibrillation, rate difficult to control on Eliquis, digoxin is continued, diltiazem adjusted, metoprolol added. 5. Sick sinus syndrome, status post permanent pacemaker. 6. Severe chronic back pain secondary to spinal stenosis. 7. Chronic constipation. Recommendations: * Incentive spirometry and acapella therapy - please request from respiratory. * Monitor off antibiotics as pseudomonas is likely colonization. * Please check a follow-up chest x-ray today. * Continue chronic prednisone dose of 5 mg daily. * Continue nebs/TRC/Spiriva and Flovent. * DVT prophylaxis, on Eliquis. * Increase activity, ambulate. * Continue all supportive care.
[2016-09-25 10:10] VITALS: BP 120/70
--- NOTE | 2016-09-25 10:54 | PN- Cardiology ---
Subjective Subjective: Feeling better. Shortness of breath is improving. No chest pain. The prior confusion has resolved now that digoxin was discontinued. He remains in atrial fibrillation, with ventricular rate under control on diltiazem and metoprolol. No lightheadedness or dizziness. No palpitations. No nausea or vomiting. No diaphoresis. Objective Vital Signs and I&Os Vital Signs Date Time Temp Pulse Resp B/P Pulse O2 O2 Flow FiO2 Ox Delivery Rate 09/25 1010 95 120/70 09/25 0904 97.9 95 16 120/70 95 Nasal 5.0L Cannula 09/25 0816 96 Nasal 3.0L Cannula 09/25 0800 Nasal 3.0L Cannula 09/25 0000 Nasal 3.0L Cannula 09/24 2349 97.9 77 12 120/64 96 Nasal Cannula 09/24 1940 98 Nasal 3.0L Cannula 09/24 1656 98.2 115 20 132/78 94 Nasal Cannula 09/24 1600 Nasal 3.0L Cannula Intake & Output 09/25 1600 09/25 0800 09/25 0000 09/24 1600 09/24 0800 09/24 0000 Intake Total 60 250 100 0 560 Output Total 250 1200 550 200 450 Balance -190 -950 -450 -200 110 Intake, IV 10 10 Intake, Oral 50 240 100 0 560 Output, Urine 250 1200 550 200 450 Patient 193 lb Weight Physical Exam: Gen: NAD HEENT: normal Lungs: Few rales in the bases, normal resp. effort Heart: Irregular, S1, S2, 1/6 systolic murmur Abdomen: Soft, nontender, no masses Extremities: No clubbing, cyanosis, or edema. Neuro: Alert and oriented x 3, cranial nerves intact Current Medications: Current Medications Sig/Satish Start time Last Medication Dose Route Stop Time Status Admin Albuterol Sulfate 3 ML TID 09/19 1000 AC 09/25 INH 0811 Apixaban 5 MG BID 09/18 2200 AC 09/25 PO 1010 Aspirin 81 MG QPM 09/18 220 AC 09/24 PO 2257 Atorvastatin Calcium 40 MG 1700 09/19 1700 AC 09/24 PO 1650 Diltiazem HCl 90 MG Q6 09/24 1200 AC 09/25 PO 0658 Dipyridamole 50 MG ONE ONE 09/24 1200 AC Dextrose/Water 30 ML IV 09/26 0359 Docusate Sodium 200 MG BID 09/19 2199 AC 09/25 PO 1010 Doxazosin Mesylate 4 MG DAILY 09/19 1000 AC 09/25 PO 1009 Doxazosin Mesylate 2 MG QPM 09/18 2230 AC 09/24 PO 2257 Ferrous Sulfate 325 MG DAILY 09/19 1537 AC 09/25 PO 1010 Finasteride 5 MG DAILY 09/19 1000 AC 09/25 PO 1011 Fluticasone 2 PUF BID 09/18 2200 AC 09/25 Propionate INH 1012 Furosemide 40 MG DAILY 09/21 1000 AC 09/25 PO 1010 Ipratropium [place] 2.5 ML TID 09/19 1000 AC 09/25 INH 0815 Lactulose 20 GM DAILY PRN 09/19 1700 AC PO Lorazepam 2 MG QPM 09/19 2200 AC 09/24 PO 2257 Metoprolol Tartrate 12.5 MG BID 09/24 2200 AC 09/25 PO 1010 Omeprazole 40 MG DAILY AC 09/19 0700 AC 09/25 PO 0658 Oxycodone HCl 60 MG BID 09/19 1000 AC 09/25 PO 1008 Oxycodone HCl 30 MG Q4P PRN 09/18 2315 AC 09/20 PO 0625 Polyethylene Glycol 17 GM DAILY 09/19 1000 AC 09/25 PO 1011 Prednisone 5 MG DAILY 09/23 1000 AC 09/25 PO 1011 Tetrahydrozoline HCl 1 GTT BID 09/23 1215 AC 09/25 OPH 1014 Tiotropium [place] 1 PUF DAILY 09/19 1000 AC 09/25 INH 1012 Trazodone HCl 200 MG QPM 09/19 2200 AC 09/24 PO 2257 Results Last 48 Hrs of Labs/Mics: Laboratory Tests 09/25/16 0645: Anion Gap 8, Estimated GFR > 60, BUN/Creatinine Ratio 24.3 09/24/16 0640: Anion Gap 5, Estimated GFR > 60, BUN/Creatinine Ratio 22.9, Magnesium 1.9, Digoxin 0.6 L Recent Imaging Studies: Persantine sestamibi stress test: 1. Mild prominence of the left ventricular chamber size. 2. Slightly decreased perfusion in the inferior wall worse on the resting images is partly attributed to diaphragmatic attenuation. No evidence of stress-induced ischemia. 3. Mild hypokinesia of the inferior wall. 4. Normal ejection fraction Assessment/Plan Assessment/Plan Assessment: 1. Hypertension 2. Diastolic congestive heart failure 3. Chronic atrial fibrillation, rate now under control on diltiazem and metoprolol. Anticoagulated on eliquis. 4. Possible mental status changes secondary to digoxin. The patient has a history of this side effect from digoxin multiple times in the past as per his family. Plan: * Continue current dosages of diltiazem and metoprolol * Change diltiazem to Cardizem CD 360 mg daily prior to discharge. * Continue Eliquis. Continue telemetry? Yes
--- NOTE | 2016-09-25 11:02 | Discharge Summary ---
Visit Information Visit Dates Admission Date: 09/18/16 Discharge Date: 09/25/16 Hospital Course Course Attending Physician: LOIS HOPPER M.D Primary Care Physician: CARLOTTA WIGGINS,JOSE ALEJANDRO Strange Consulting Request: 1 Consulting Specialty: Cardiology Consulting Physician: Dr. Carrero Reason for Consult: Acute on chronic CHF, atrial fibrllation with uncontrolled rate Consulting Request: 2 Consulting Specialty: Pulmonary Disease Consulting Physician: Dr. Ware Reason for Consult: COPD with increased O2 requirements Hospital Course: Mr. Palacios is a pleasant 81 year old gentleman with PMH atrial fibrillation on Eliquis, COPD on 2 L home O2 and chronic steroids, hyperlipidemia, HFpEF, hypertension and tachy-matty syndrome s/p permanent pacemaker who presented with chief complaint of shortness of breath. Patient has a home oximeter and noted decreased O2 saturation to 84%, requiring him to increase home O2 via NC to 3 L. In the ED: Vital signs showed T 98.2, HR 118, RR 18, BP 149/79 and O2 sat 94% on 4L NC. Labs showed WBC 5.5, H&H 8.4/26.1, Plt 222, Na 137, K 3.7, Cl 94, HCO3 34 , BUN 11, cre 0.7, glu 201, lactic acid 1.8, troponin 0.02 and dig <0.4. CXR was done and showed interstitial pulmonary edema with small left pleural effusion. EKG showed HR 103, VT 140, QRS 110, paced rhythm. Patient was admitted to the telemetry floor and the following was the management : 1. Acute on chronic diastolic heart failure: Patient had history of HFpEF with EF of 60% on last echocardiogram prior to admission. Initial CXR was suggestive of congestive heart failure with interstitial pulmonary edema and smal left pleural effusion. Cardiology was consulted and aggressive diuresis started. Strict Is/Os/Daily weights initiated and patient remained in a negative fluid balance throughout his stay. Lasix was then transitioned to oral and his home dose of 20 mg was increased to 40 mg PO daily. He was discharged on this dose and with close follow up to Dr. Mayfield's office as well as the CHF clinic for close monitoring of his heart failure and fluid status. Of note, patient also had a persantine nuclear stress test during his admission which did not show any exercise induced ischemic changes, though it did show inferior wall hypokinesia. 2. COPD without acute exacerbation: Patient presented with a slight increase in O2 requirements, though this was likely attributable to his CHF exacerbation with fluid overload. He was initiated on a rapid steroid taper and then continued on his home 5 mg PO prednisone daily. Pulmonology consult with Dr. Ware was placed and she suggested continuing steroids along with home nebulizers to optimize respiratory status. A lower respiratory culture was obtained and grew pseudomonas, though this was likely a contaminant and patient was not started on antibiotics. Patient should follow up with both Dr. Ware and the COPD clinic for further management. Of note, patient was started on beta -blockers during his stay and monitored closely for bronchospasm; no evidence of respiratory compromise was noted after initiation and he was safely discharged home on this medication. 3. Atrial fibrillation s/p PPM implantation: Patient was admitted and continued on all his home medications for atrial fibrillation, however he was noted to be persistently tachycardic on the monitor and storage bin tender. Cardiology consult with Dr. Carrero and the final regimen to control his heart rate was: cardizem 90 mg PO Q6H and metoprolol 12.5 mg PO BID. He was also continued on his eliquis and aspirin. Patinet should follow up with both Dr. Carrero and his PCP within 1 week for continued care, 4. History of CAD and HTN: Patient was continued on his nitro patch and antihypertensive regimen as noted above. Vital signs were performed every shift and patient maintained an adequate BP during his stay. His PCP should monitor his BP after discharge as we have added metoprolol to his regimen and increased his cardizem dose. 5. Acute anemia: Patient had noted H&H to 8.4/26.1 on admission that was slightly below baseline. An iron panel was checked and patient was noted to have low Fe without other abnormalities. Ferrous sulfate was started daily and continued after discharge. 6. Chronic pain: Patient was continued on his home oxycodone and oxycontin as well as trazodone 20 mg PO QPM and ativan 2 mg QPM. He was discharged with instructions to continue these medications on discharge. 7. BPH: Patient was continued on his home proscar 5 mg by mouth daily and cardura 4 mg by mouth daily. No active issues occured in regards to his BPH during this admission. 8. Code status: FULL 9. DVT Prophylaxis: Eliquis Complications: None. Allergies: Coded Allergies: NO KNOWN ALLERGIES (05/30/16) Significant Procedures: EXAMINATION: AP chest radiograph CLINICAL INFORMATION: CHF/COPD COMPARISON: Chest radiograph 08/30/2016 and multiple additional prior chest radiographs TECHNIQUE: Portable AP view of the chest was obtained. FINDINGS: Left pectoral pacemaker is redemonstrated. Median sternotomy wires. Diffuse interstitial and hazy airspace opacities with central vascular congestion at least in part felt to reflect interstitial pulmonary edema that is slightly improved in comparison to the prior study. Previously seen small left pleural effusion is decreased in size. There is no pneumothorax. Cardiac silhouette is enlarged. No acute osseous findings. IMPRESSION: Imaging findings are again suggestive of congestive heart failure with interstitial pulmonary edema that is slightly improved in comparison to the previous study. Decreased size of a small left pleural effusion. Superimposed pneumonia is not excluded. Echo: CONCLUSIONS 1. THis was a technically difficult examination. 2. Mild aortic sclerosi is present with no valvular stenosis or insufficiency. 3. Mitral leaflet thickening is present with minimal to mild mitral insufficiency and moderate left atrial enlargement 4. There is no significant pericardial fluid present. 5. THe left ventricular chamber size is normal with mild to moderate concentric hypertrophy and a normal ejection fraction. 6. The right heart structures were not optimally visualized. Minimal to mild tricuspid and pulmonic insufficiency are present. The RV systolic pressure could not be accurately assessed. 7. Pacemaker wires are present in the right heart chambers. EXAMINATION: PERSANTINE STRESS AND RESTING SPECT MYOCARDIAL PERFUSION IMAGING STUDY WITH GATED SPECT IMAGES: CLINICAL INDICATION: CAD, hypertension COMPARISON: Myocardial perfusion imaging dated 09/29/2010 TECHNIQUE: Regional myocardial perfusion was assessed using a 1 day protocol. Stress images were obtained on 09/24/2016 following the intravenous administration of 25.4 mCi Tc 99m Myoview. Stress consisted of 50 mg Persantine given intravenously. Rest images were obtained 09/24/2016 following the intravenous administration of 41.7 mCi Technetium 99m Myoview. Single photon emission tomographic (SPECT) images were obtained. SPECT images were acquired in a 64 x 64 matrix of 64 projections over 180 degrees. There were reconstructed into standard short axis, horizontal and vertical long axis cardiac projections. FINDINGS: The post stress images demonstrate mild prominence of the left ventricular chamber size. There is mildly decreased activity in the inferior wall which may be partly attributed to diaphragmatic attenuation. It persists on the resting images. No evidence of a reversible perfusion abnormality identified. Decreased activity in the inferior wall of the left ventricular myocardium, but slightly more pronounced compared to the post stress images. The images were obtained using a gated SPECT technique, which permits visualization of wall motion and calculation of the left ventricular ejection fraction. There is mild hypokinesia of the inferior wall. The calculated left ventricular ejection fraction is 52% on the stress study. IMPRESSION: 1. Mild prominence of the left ventricular chamber size. 2. Slightly decreased perfusion in the inferior wall worse on the resting images is partly attributed to diaphragmatic attenuation. No evidence of stress-induced ischemia. 3. Mild hypokinesia of the inferior wall. 4. Normal ejection fraction Disposition Summary Disposition Principal Diagnosis: Acute on chronic diastolic heart failure Atrial fibrillation, rate poorly controlled Additional Diagnosis: COPD, O2 dependant History of CAD HTN Acute anemia Chronic pain BPH Discharge Disposition: home health services Discharge Instructions General Discharge Information Code Status: Full Code Patient's Diet: CHF diet. Patient's Activity: Self-limited, as tolerated. Follow-Up Instructions/Appts: Please follow up with your PCP within 7 days of discharge. Please follow up with Dr. Carrero within 7 days of discharge. Please follow up with your army helicopter pilot Dr. Ware at your scheduled appt next week. Please follow up at your scheduled CHF clinic appt tomorrow. Please take all medications as directed. Please return if you notice worsening of your symptoms or with any concerns. Medications at Discharge Discharge Medications: Stop taking the following medications: Diltiazem HCl (Diltiazem 12HR ER) 90 MG CAP.ER.12H ORAL THREE TIMES DAILY Furosemide (Furosemide) 20 MG TABLET ORAL DAILY Qty = 90 Continue taking these medications: Atorvastatin Calcium (Lipitor) 40 MG TABLET 1 Tablet ORAL DAILY Comments: Last Taken: 09/24/16 Time: 5:00 PM Aspirin (Children's Aspirin) 81 MG TAB.CHEW 1 Tablet ORAL Every night Days = 30 Comments: Last Taken: 09/24/16 Time: 11:00 PM Multivit-Min/FA/Lycopen/Lutein (Centrum Silver Men Tablet) 300 MCG-600 MCG-300 MCG TABLET 1 Tablet ORAL DAILY Comments: NOT GIVEN IN HOSPITAL Trazodone HCl (Trazodone HCl) 100 MG TABLET 2 Tablet ORAL Every night Comments: Last Taken: 09/24/16 Time: 11:00 PM Oxycodone HCl (Roxicodone) 30 MG TABLET 1-2 Tablet ORAL EVERY 4 HOURS NEEDED as needed for pain Comments: Last Taken: 09/20/16 Time: 6:30 AM Apixaban (Eliquis) 5 MG TABLET 1 Tablet ORAL TWICE DAILY Qty = 60 Comments: Last Taken: 09/25/16 Time: 10:00 AM Lorazepam (Lorazepam) 2 MG TABLET 1 Tablet ORAL Every night Qty = 30 Instructions: Per daughter, dose reduced to 1 mg. Comments: Last Taken: 09/24/16 Time: 11:00 PM Oxycodone HCl (Oxycontin) 40 MG TAB.ER.12H 1 Tablet ORAL TWICE DAILY Comments: NOT GIVEN IN HOSPITAL Lactulose (Lactulose) 10 GRAM/15 ML SOLUTION 30 Milliliters ORAL DAILY as needed for CONSTIPATION Qty = 946 Comments: NOT GIVEN IN HOSPITAL Glycerin (Suppository) ADULT SUPP.RECT 1 SUPPOSITORY RECTALLY Every other day Comments: NOT GIVEN IN HOSPITAL Docusate Sodium (Colace) 100 MG CAPSULE 2 Capsule ORAL TWICE DAILY Comments: Last Taken: 09/25/16 Time: 10:00 AM Potassium Chloride (Potassium Chloride) 10 MEQ TAB.ER.PRT 1 Tablet ORAL DAILY Qty = 90 Comments: NOT GIVEN IN HOSPITAL Oxycodone HCl (Oxycontin) 20 MG TAB.ER.12H 1 Tablet ORAL TWICE DAILY Qty = 60 Instructions: PT TAKES 60MG TOTAL BID Comments: Last Taken: 09/25/16 Time: 10:00 AM Nitroglycerin (Nitro-Dur) 0.4 MG/HOUR PATCH.TD24 1 PATCH On the skin DAILY Qty = 30 Instructions: APPLY FOR 12 HOURS EVERYDAY Comments: PER PT DAUGHTER MD CARRERO DISCONTINUED Albuterol Sulfate (Albuterol Sulfate) 2.5 MG/3 ML (0.083 %) VIAL.NEB 1 Vial Inhale Solution EVERY 4 HOURS NEEDED as needed for SOB Comments: Last Taken: 09/25/16 Time: 8:00 AM Ipratropium/Albuterol Sulfate (Iprat-Albut 0.5-3(2.5) MG/3 Ml) (Unknown Strength ) AMPUL.NEB 1 VIAL Inhale through mouth THREE TIMES DAILY Comments: Last Taken: 09/25/16 Time: 8:00 AM Doxazosin Mesylate (Cardura) 4 MG TABLET 1 Tablet ORAL Every Morning Comments: Last Taken: 09/25/16 Time: 10:00 AM Doxazosin Mesylate (Doxazosin Mesylate) 2 MG TABLET 1 Tablet ORAL Every night Comments: Last Taken: 09/24/16 Time: 11:00 PM Finasteride (Finasteride) 5 MG TABLET 1 Tablet ORAL DAILY Comments: Last Taken: 09/25/16 Time: 10:00 AM Fluticasone Propionate (Flovent Hfa) 220 MCG AER.W.ADAP 2 PUFF Inhale through mouth TWICE DAILY Comments: Last Taken: 09/25/16 Time: 10:00 AM Fluticasone Propionate (Flonase Allergy Relief) 50 MCG/ACTUATION SPRAY.SUSP 2 [place] Both sides of nose TAKE AT BEDTIME Comments: NOT GIVEN IN HOSPITAL Bisacodyl (Dulcolax) 10 MG SUPP.RECT 1 Suppository RECTAL Every other day Comments: NOT GIVEN IN HOSPITAL Pantoprazole Sodium (Pantoprazole Sodium) 40 MG TABLET.DR 1 Tablet ORAL DAILY Comments: OMEPRAZOLE GIVEN [facility] Last Taken: 09/25/16 Time: 7:00 AM Prednisone (Prednisone) 5 MG TABLET 1 Tablet ORAL DAILY Comments: Last Taken: 09/25/16 Time: 10:00 AM Tiotropium [place] (Spiriva) 18 MCG CAP.W.DEV 1 Capsule Inhale through mouth DAILY Comments: Last Taken: 09/25/16 Time: 10:00 AM Polyethylene Glycol 3350 (Polyethylene Glycol 3350) 17 GRAM/DOSE POWDER 17 Gram ORAL DAILY Qty = 527 Comments: Last Taken: 09/25/16 Time: 10:00 AM Start taking the following new medications: Metoprolol Tartrate (Metoprolol Tartrate) 25 MG TABLET 12.5 Milligram ORAL TWICE DAILY Qty = 30 No Refills Diltiazem HCl (Diltiazem HCl) 90 MG TABLET 90 Milligram ORAL EVERY SIX HOURS Qty = 120 No Refills Furosemide (Lasix) 40 MG TABLET 40 Milligram ORAL DAILY Qty = 30 No Refills Ferrous Sulfate (Ferrous Sulfate) 325 MG (65 MG IRON) TABLET 1 Tablet ORAL DAILY Qty = 30 No Refills Copies To: Torri WARE MD; ALISE WIGGINS,Randall ALCALA Attending MD Review Statement Documenting Attending: LOIS HOPPER M.D Other Findings: I have reviewed the discharge summary.
== END 2016-09-25 12:55 | disposition home health service (06) | DRG 291 ==
LOC: ENRESERVTM → ENRESERVDT → ERH 17:27 → 1NO 21:26 → ENPENDDIS 21:26 → ERHI 21:26 → 1NO 22:45
PROVIDERS: Internal Medicine; Physician Assistant; Student in an Organized Health Care Education/Training Program; ADMIT Student in an Organized Health Care Education/Training Program
DX: I11.0 Hypertensive heart disease with heart failure (principal); J96.21 Acute and chronic respiratory failure with hypoxia; Z99.81 Dependence on supplemental oxygen; I48.91 Unspecified atrial fibrillation; I50.33 Acute on chronic diastolic (congestive) heart failure; Z79.01 Long term (current) use of anticoagulants; J44.9 Chronic obstructive pulmonary disease, unspecified; E78.5 Hyperlipidemia, unspecified; Z95.0 Presence of cardiac pacemaker; I25.10 Atherosclerotic heart disease of native coronary artery without angina pectoris; Z95.1 Presence of aortocoronary bypass graft; D64.9 Anemia, unspecified; N40.0 Benign prostatic hyperplasia without lower urinary tract symptoms; G47.33 Obstructive sleep apnea (adult) (pediatric); Z87.891 Personal history of nicotine dependence; G89.29 Other chronic pain
CPT/HCPCS: 1NP; 36415; 78452; 81001; 82436; 87040; 87070; 87804; 87804-59; 93005; 93010; 93016; 93017; 93306; 96374; 96375; 99291; A9502; J1160; J1245; J1940; J2930; J3490; J7512

== ENCOUNTER 2016-09-26 15:20 | Emergency (ER) | payer OTHER, MEDICARE ==
[~2016-09-26] VITALS: Ht 177.8 cm; Wt 95.3 kg
[~2016-09-26 15:20] MED LIST changes: +ALBUTEROL2.5 MG/3 M INH/SOL; +CARDURA4 M1 PO; +DILTIAZEM 12HR90 MG PO; +DOXAZOSIN MESYLA2 M1 PO; +DULCOLAX10 M1 RC; +FERROUS SULFAT325 M3 PO; +FINASTERIDE5 M1 PO; +FLONASE ALLERG9.9 ML NASB; +FLOVENT HFA12 GM INH; +FUROSEMIDE20 M1 PO; +IPRAT-ALBUT 0.5-3 ML INH; +METOPROLOL TART25 M1 PO; +PANTOPRAZOLE SO40 M1 PO; +POLYETHYLENE G255 GM PO; +PREDNISONE5 M1 PO; +SPIRIVA18 MCG INH
--- NOTE | 2016-09-26 15:29 | ED GENERAL ADULT ---
See Addendum History of Present Illness General Chief Complaint: General Adult Stated Complaint: WEAKNESS Source: patient, family Exam Limitations: poor historian Vital Signs & Intake/Output Vital Signs & Intake/Output Vital Signs Date Time Temp Pulse Resp B/P Pulse O2 O2 Flow FiO2 Ox Delivery Rate 09/26 2110 98.3 90 16 155/74 100 Room Air 09/26 1945 99 Nasal Cannula 09/26 194 89 18 160/75 100 Room Air 09/26 1824 96.3 77 20 158/69 95 Nasal 2.0L Cannula 09/26 1811 96 Nasal 2.0L Cannula 09/26 1524 98.5 81 20 118/69 85 Nasal 3.0L Cannula ED Intake and Output 09/27 0000 09/26 1200 Intake Total 25 Output Total Balance 25 Intake, Oral 25 Patient 210 lb Weight Allergies Coded Allergies: NO KNOWN ALLERGIES (05/30/16) Reconcile Medications Albuterol Sulfate 2.5 MG/3 ML (0.083 %) VIAL.NEB 1 Vial INH/JENNY Q4P PRN SOB ( Reported) Apixaban (Eliquis) 5 MG TABLET 1 TAB PO BID BLOOD THINNER (Reported) Aspirin (Children's Aspirin) 81 MG TAB.CHEW 1 TAB PO QPM HEART (Reported) Atorvastatin Calcium (Lipitor) 40 MG TABLET 1 TAB PO DAILY CHOLESTEROL ( Reported) Bisacodyl (Dulcolax) 10 MG SUPP.RECT 1 SUP RC EOD SEVERE CONSTIPATION ( Reported) Diltiazem HCl 90 MG TABLET 90 MG PO Q6 Atrial fibrillation Docusate Sodium (Colace) 100 MG CAPSULE 2 CAP PO BID CONSTIPATION (Reported) Doxazosin Mesylate (Cardura) 4 MG TABLET 1 TAB PO QAM BP/PROSTATE (Reported) Doxazosin Mesylate 2 MG TABLET 1 TAB PO QPM BP/PROSTATE (Reported) Ferrous Sulfate 325 MG (65 MG IRON) TABLET 1 TAB PO DAILY Supplement Finasteride 5 MG TABLET 1 TAB PO DAILY PROSTATE (Reported) Fluticasone Propionate (Flovent Hfa) 220 MCG AER.W.ADAP 2 PUFF INH BID COPD/ ASTHMA (Reported) Fluticasone Propionate (Flonase Allergy Relief) 50 MCG/ACTUATION SPRAY.SUSP 2 SPRAY NASB QHS ALLERGIES (Reported) Furosemide (Lasix) 40 MG TABLET 40 MG PO DAILY Diuretic Glycerin (Suppository) ADULT SUPP.RECT 1 SUPP MO EOD SEVERE CONSTIPATION ( Reported) Ipratropium/Albuterol Sulfate (Iprat-Albut 0.5-3(2.5) MG/3 Ml) (Unknown Strength ) AMPUL.NEB 1 VIAL INH TID COPD (Reported) Lactulose 10 GRAM/15 ML SOLUTION 30 ML PO DAILY PRN CONSTIPATION (Reported) Lorazepam 2 MG TABLET 1 TAB PO QPM ANXIETY (Reported) Per daughter, dose reduced to 1 mg. Metoprolol Tartrate 25 MG TABLET 12.5 MG PO BID HTN Multivit-Min/FA/Lycopen/Lutein (Centrum Silver Men Tablet) 300 MCG-600 MCG-300 MCG TABLET 1 TAB PO DAILY SUPPLEMENT (Reported) Nitroglycerin (Nitro-Dur) 0.4 MG/HOUR PATCH.TD24 1 PATCH TOP DAILY CHEST PAIN APPLY FOR 12 HOURS EVERYDAY Oxycodone HCl (Roxicodone) 30 MG TABLET 1-2 TAB PO Q4P PRN pain (Reported) Oxycodone HCl (Oxycontin) 40 MG TAB.ER.12H 1 TAB PO BID PAIN (Reported) Oxycodone HCl (Oxycontin) 20 MG TAB.ER.12H 1 TAB PO BID PAIN (Reported) PT TAKES 60MG TOTAL BID Pantoprazole Sodium 40 MG TABLET.DR 1 TAB PO DAILY GERD (Reported) Polyethylene Glycol 3350 17 GRAM/DOSE POWDER 17 GM PO DAILY GI (Reported) Potassium Chloride 10 MEQ TAB.ER.PRT 1 TAB PO DAILY SUPPLEMENT (Reported) Prednisone 5 MG TABLET 1 TAB PO DAILY COPD (Reported) Tiotropium [place] (Spiriva) 18 MCG CAP.W.DEV 1 CAP INH DAILY COPD (Reported) Trazodone HCl 100 MG TABLET 2 TAB PO QPM anxiety/sleep (Reported) Triage Note: PT TO ED WITH DAUGHTER, PT JUST DISCHARGE FROM [place] FOR CHF YESTERDAY. TODAY PT IS WEAK, LETHARGIC, COULD HOLD A GLASS OF WATER. Triage Nurses Notes Reviewed? yes Onset: Abrupt Duration: hour(s): Timing: recent history Severity: severe HPI: 09/26/16 5 pm This is an 81-year-old man who presents to the emergency department for altered mental status. According to the daughter the patient was recently discharged for congestive heart failure. He was seen by Dr. Lora his emblem fuser tender and also by Dr. Bowens his brick chimney builder, on his last admission. He was on Digoxin and was not doing well and he was subsequently started on metoprolol. She said his heart rate had been elevated in the 140s. Now she thinks that he may be becoming lethargic from the metoprolol. He has urinated in his bed and has been confused. He is sleeping all the time. There is no chest pain shortness of breath fever or other complaints. On physical exam he is awake and alert and oriented 3. He has poor air entry. His abdomen is soft and nontender. He does have lower extremity pitting edema. He has a cicatrix on his anterior chest. Past History Travel History Traveled to [place] past 21 day No Medical History Any Pertinent Medical History? see below for history Neurological: TIA EENT: NONE Cardiovascular: AFIB, CAD, hypertension, hyperlipidemia, myocardial infarction Respiratory: COPD, emphysema, pneumonia Gastrointestinal: hiatal hernia, pancreatitis, peptic ulcer disease Hepatic: NONE Renal: NONE Musculoskeletal: disk herniation, spinal stenosis Psychiatric: NONE Endocrine: BORDERLINE DM Blood Disorders: NONE Cancer(s): NONE SENIOR MANAGER/Reproductive: NONE History of MRSA: Yes History of VRE: No History of CDIFF: No Influenza Vaccine: 03/29/16 Surgical History Surgical History: CABG, knee replacement (left), laminectomy, PACEMAKER Psychosocial History Who do you live with Spouse Services at Home Home Health Aide What is your primary language [facility] ([facility] Tobacco Use: Quit >30 days ago ETOH Use: denies use Illicit Drug Use: denies illicit drug use Family History Family History, If Any: FATHER FH: myocardial infarction Hx Contributory? No Review of Systems Review of Systems Constitutional: Denies: fever. EENTM: Denies: visual changes. Respiratory: Reports: short of breath. Cardiovascular: Denies: chest pain. GI: Denies: abdominal pain. Genitourinary: Reports: no symptoms. Musculoskeletal: Reports: no symptoms. Skin: Reports: no symptoms. Neurological/Psychological: Reports: confusion. Hematologic/Endocrine: Reports: no symptoms. Physical Exam Physical Exam General Appearance: awake, anxious, mild distress Head: atraumatic, normal appearance Eyes: Bilateral: normal appearance, PERRL, EOMI. Ears, Nose, Throat: normal pharynx Neck: normal inspection, supple Respiratory: chest non-tender, decreased breath sounds Cardiovascular: regular rate/rhythm Peripheral Pulses: 4+ radial (R), 4+ radial (L) Gastrointestinal: non-tender Back: decreased range of motion Extremities: pedal edema Neurologic/Psych: awake, alert, oriented x 3 Skin: intact, normal color, warm/dry Core Measures ACS in differential dx? No CVA/TIA Diagnosis: No Severe Sepsis Present: No Septic Shock Present: No Progress Differential Diagnoses I considered the following diagnoses in my evaluation of the patient: [Adverse drug reaction, sick sinus syndrome, acute coronary syndrome, sepsis] Plan of Care: Orders Procedure Date/time Status TROPONIN LEVEL 09/26 1852 Complete EKG 09/26 1852 Active ARTERIAL BLOOD GAS (GEN) 09/26 1649 Complete TROPONIN LEVEL 09/26 1649 Complete D-DIMER 09/26 1649 Complete COMPREHENSIVE METABOLIC PANEL 09/26 1649 Complete CBC WITHOUT DIFFERENTIAL 09/26 1649 Complete B-TYPE NATRIURETIC PEP (BNP) 09/26 1649 Complete EKG 09/26 1532 Active Laboratory Tests 09/26/16 1925: Troponin I 0.02 09/26/16 1810: pH 7.47 H, pCO2 52 H, pO2 93, HCO3 37 H, ABG O2 Sat (Measured) 96.0, P-50 ( Temp Corrected) N, Carboxyhemoglobin 0.7 L, O2 Concentration % 2.5L, Temperature 98.5, O2 Delivery Method NC, Phlebotomy Draw Site LEFT RADIAL 09/26/16 1728: Anion Gap 8, Estimated GFR > 60, BUN/Creatinine Ratio 28.8 H, Glucose 226 H, Calcium 10.0, Total Bilirubin 1.2, AST 14 L, ALT 18 L, Alkaline Phosphatase 83 , Troponin I 0.02, Exk-V-[place] Pept 2590 H, Total Protein 7.0, Albumin 3.5, Globulin 3.5, Albumin/Globulin Ratio 1.0 L, D-Dimer 241 H, CBC w Diff NO MAN DIFF REQ, RBC 3.93 L, MCV 80.2, MCH 25.3 L, RDW 18.4 H, MPV 7.7, Gran % 72.2, Lymphocytes % 21.8, Monocytes % 4.3, Eosinophils % 1.1, Basophils % 0.6, Absolute Granulocytes 5.7, Absolute Lymphocytes 1.7, Absolute Monocytes 0.3, Absolute Eosinophils 0.1, Absolute Basophils 0, PUBS MCHC 31.6 L Initial ED EKG: afib, paced beats Prior EKG: changed Repeat EKG: unchanged Departure Departure Disposition: STILL A PATIENT Condition: Stable Clinical Impression Primary Impression: Lethargic Referrals: CARLOTTA WIGGINS,JOSE ALEJANDRO Strange (PCP/Family) Departure Forms: Customer Survey General Discharge Information Comments 09/26/[address] HEAD NEGATIVE 09/26/16 8:45 PM The patient is awake alert and oriented 3. He is at his baseline status according to his daughter. I discussed the case with his emblem fuser tender Dr. Lora we are in agreement with the plan, will taper the metoprolol and then discontinue. He will continue his Cardizem. He'll follow-up with Dr. Lora on Saturday or return to the emergency department if worse Critical Care Note Critical Care Note Critical Care Time: non-applicable
--- NOTE | 2016-09-26 17:31 | CT SCAN REPORT ---
EXAMINATION: CT HEAD WITHOUT CONTRAST CLINICAL INFORMATION: Altered mental status. COMPARISON: Head CT from 02/08/2015. TECHNIQUE: Contiguous axial imaging was performed from the skull base to vertex without intravenous administration of contrast. DLP: 672 mGy-cm FINDINGS: There is atherosclerotic calcification of the vertebral and cavernous carotid arteries. No evidence of an acute major vascular territory infarction, hemorrhage, extra-axial fluid collection, focal mass effect or midline shift. 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 An area of asymmetric decreased attenuation within the right cerebellar hemisphere could represent volume averaging through a sulcus or an old infarct (image 17, series 2). There is mild, patchy decreased attenuation in supratentorial white matter suggestive of chronic microvascular ischemic change. Again noted is mild atrophy of cerebral hemispheres with symmetric prominence of the ventricles and sulci. There is prominent CSF space overlying the cerebellar hemispheres, laterally. The calvarium is intact and the mastoid air cells and middle ear cavities are clear. There is a mucus retention cyst along lateral wall of the visualized left maxillary sinus. The orbits, globes and temporomandibular joints are unremarkable. IMPRESSION: There is no acute intracranial pathology compared to 02/08/2015.
[2016-09-26 17:37] LABS: ABSOLUTE BASOPHIL COUNT 0 /CUMM (0.0-0.2); ABSOLUTE EOSINOPHIL COUNT 0.1 /CUMM (0.0-0.7); ABSOLUTE GRANULOCYTE CT 5.7 /CUMM (1.4-6.5); ABSOLUTE LYMPH COUNT 1.7 /CUMM (1.2-3.4); ABSOLUTE MONOCYTE COUNT 0.3 /CUMM (0.10-0.60); BASOPHIL % 0.6 % (0.0-2.0); EOSINOPHIL % 1.1 % (0-5); GRANULOCYTE % 72.2 % (42.2-75.2); HEMATOCRIT 31.5 % (42-52); MEAN CORPUSCULAR HGB 25.3 PG (27.0-31.0); MEAN CORPUSCULAR HGB CONC 31.6 G/DL (33.0-37.0); MEAN CORPUSCULAR VOLUME 80.2 FL (80.0-94.0); MEAN PLATELET VOLUME 7.7 FL (7.4-10.4); PLATELET COUNT 287 /CUMM (130-400); RBC DISTRIBUTION WIDTH 18.4 % (11.5-14.5); RED BLOOD CELL CT 3.93 /CUMM (4.70-6.10); WHITE BLOOD CELL COUNT 7.9 /CUMM (4.8-10.8)
--- NOTE | 2016-09-26 17:38 | RADIOLOGY REPORT ---
EXAMINATION: XR PORTABLE CHEST CLINICAL INFORMATION: Shortness of breath. COMPARISON: Chest x-ray 09/24/2016 07/13/2016 TECHNIQUE: Portable AP portable view of the chest was obtained. 5:11 PM FINDINGS: Pacemaker leads in right atrium and right ventricle unchanged in position. Status post median sternotomy. Heart size is enlarged. There is mild central pulmonary vascular congestion with increased interstitial lung markings that are unchanged since prior chest x-ray. No overt pulmonary edema or focal consolidation. No pleural effusion. IMPRESSION: Persistent mild central vascular prominence and increased interstitial lung markings likely cardiogenic in etiology. No change since chest x-ray 09/24/2016.
[2016-09-26 21:11] VITALS: BP 155/74
== END 2016-09-26 21:13 ==
LOC: ERH 15:20
PROVIDERS: Emergency Medicine
DX: R53.83 Other fatigue (principal)
CPT/HCPCS: 93005; 93010

== ENCOUNTER 2017-09-18 11:02 | Emergency (ER) | payer OTHER, MEDICARE ==
[~2017-09-18] VITALS: Ht 177.8 cm; Wt 87.1 kg
[~2017-09-18 11:02] MED LIST changes: +CEFUROXIME500 MG PO; +CIPRO500 M1 PO; +LASIX80 M1 PO; +SPIRONOLACTONE25 M1 PO
--- NOTE | 2017-09-18 11:51 | ED GI/GU/ABDOMINAL COMPLAINT ---
History of Present Illness General Chief Complaint: General Adult Stated Complaint: BLACK WATERY STOOL X 1 DAY Source: patient, family, old records Exam Limitations: no limitations Vital Signs & Intake/Output Vital Signs & Intake/Output Vital Signs Date Time Temp Pulse Resp B/P B/P Pulse O2 O2 Flow FiO2 Mean Ox Delivery Rate 09/18 1625 Room Air 09/18 1625 98.2 61 18 124/58 94 Room Air 09/18 1436 95 09/18 1420 99 09/18 1320 97.6 80 18 126/78 98 Room Air 09/18 1238 63 118/66 09/18 1108 97.6 88 18 158/81 99 Room Air Allergies Coded Allergies: digoxin (Intermediate, LETHARGY 04/16/17) metoprolol (From LOPRESSOR) (Intermediate, LETHARGY 04/16/17) Reconcile Medications Albuterol Sulfate 2.5 MG/3 ML (0.083 %) VIAL.NEB 1 Vial INH/JENNY Q4P PRN SOB ( Reported) Apixaban (Eliquis) 5 MG TABLET 1 TAB PO BID BLOOD THINNER (Reported) Aspirin (Children's Aspirin) 81 MG TAB.CHEW 1 TAB PO QPM HEART (Reported) Atorvastatin Calcium (Lipitor) 40 MG TABLET 1 TAB PO DAILY CHOLESTEROL ( Reported) Azithromycin 250 MG TABLET 1 DP PO MoWeFr ANTIBIOTIC, INFECTION (Reported) 2 the first day followed by 1 for days 2-5 Bisacodyl (Dulcolax) 10 MG SUPP.RECT 1 SUP RC EOD SEVERE CONSTIPATION ( Reported) Docusate Sodium (Colace) 100 MG CAPSULE 2 CAP PO BID CONSTIPATION (Reported) Doxazosin Mesylate (Cardura) 4 MG TABLET 1 TAB PO QAM BP/PROSTATE (Reported) Doxazosin Mesylate 2 MG TABLET 1 TAB PO QPM BP/PROSTATE (Reported) Ferrous Sulfate 325 MG (65 MG IRON) TABLET 1 TAB PO DAILY Supplement Finasteride 5 MG TABLET 1 TAB PO DAILY PROSTATE (Reported) Fluticasone Propionate (Flovent Hfa) 220 MCG AER.W.ADAP 2 PUFF INH QAM COPD/ ASTHMA (Reported) Furosemide 40 MG TABLET 1 TAB PO MoWeFr WATER RETENTION (Reported) Furosemide 80 MG TABLET 1 TAB PO SuTuThSa WATER RETENTION (Reported) Glycerin (Suppository) ADULT SUPP.RECT [address] EOD SEVERE CONSTIPATION ( Reported) Ipratropium/Albuterol Sulfate (Iprat-Albut 0.5-3(2.5) MG/3 Ml) (Unknown Strength ) AMPUL.NEB 1 VIAL INH TID COPD (Reported) Lactulose 10 GRAM/15 ML SOLUTION 30 ML PO DAILY PRN CONSTIPATION (Reported) Lorazepam 2 MG TABLET 1 TAB PO QPM ANXIETY (Reported) Per daughter, dose reduced to 1 mg. Multivit-Min/FA/Lycopen/Lutein (Centrum Silver Men Tablet) 300 MCG-600 MCG-300 MCG TABLET 1 TAB PO DAILY SUPPLEMENT (Reported) Oxycodone HCl (Roxicodone) 30 MG TABLET 1-2 TAB PO Q4P PRN pain (Reported) Oxycodone HCl (Oxycontin) 40 MG TAB.ER.12H 1 TAB PO BID PAIN (Reported) Oxycodone HCl (Oxycontin) 20 MG TAB.ER.12H 1 TAB PO BID PAIN (Reported) PT TAKES 60MG TOTAL BID Pantoprazole Sodium 40 MG TABLET.DR 1 TAB PO MoWeFr GI (Reported) Polyethylene Glycol 3350 17 GRAM/DOSE POWDER 17 GM PO DAILY GI (Reported) Potassium Chloride 10 MEQ TAB.ER.PRT 1 TAB PO DAILY SUPPLEMENT (Reported) Spironolactone 25 MG TABLET 1 TAB PO DAILY CHF (Reported) Trazodone HCl 100 MG TABLET 2 TAB PO QPM anxiety/sleep (Reported) Triage Note: PT TO ED FOR BLACK WATERY STOOLS X 1 DAY, PT REPORTING HE WAS CONSTIPATED EARLIER IN THE WEEK "AND TOOK EVERYTHING HE COULD FOR CONSTIPATION AND HAS BEEN GOING EVER SINCE". PT DENIES ABD PAIN, NAUSEA, VOMITING. Triage Nurses Notes Reviewed? yes Onset: Abrupt Duration: day(s): (2), constant Timing: recent history Quality/Severity: no pain Severity Numbers: 1 Location: no pain Radiation: no radiation Activities at Onset: s/p laxative use No Modifying Factors: none Associated Symptoms: denies HPI: 82 Year old male history of afib on elliquis, copd, danielle, pulmonary htn, pacemaker, htn, hld, chf, cabg presents to the ER for evaluation with his daughter who states that for the past week the patient was constipated and was taking several dzch-jgb-yvksdyd medications which subsequently caused diarrhea beginning yesterday which his daughter states was black. The patient states he has the urge to have a bowel movement he denies abdominal pain rectal pain no bleeding. No fever chills chest pain shortness of breath dizziness lightheadedness. Patient has been seen and followed by Dr. Castro in the past as he has an isolated history several years ago of a bleeding ulcer (Jimi Gallagher) Past History Travel History Traveled to [place] past 21 day No Medical History Any Pertinent Medical History? see below for history Neurological: TIA EENT: NONE Cardiovascular: AFIB, CAD, hypertension, hyperlipidemia, myocardial infarction, PACEMAKER Respiratory: COPD, emphysema, pneumonia Hepatic: NONE Renal: NONE Musculoskeletal: disk herniation, spinal stenosis Psychiatric: NONE Endocrine: BORDERLINE DM Blood Disorders: NONE Cancer(s): NONE DISABILITY RATER/Reproductive: NONE History of MRSA: Yes History of VRE: No History of CDIFF: No Surgical History Surgical History: CABG, knee replacement (left), laminectomy, PACEMAKER Psychosocial History Who do you live with Spouse Services at Home Oxygen What is your primary language Citizen [place] Tobacco Use: Never used ETOH Use: denies use Illicit Drug Use: denies illicit drug use Family History Family History, If Any: FATHER FH: myocardial infarction Hx Contributory? No (Jimi Gallagher) Review of Systems Review of Systems Constitutional: Reports: see HPI. Comments Review of systems: See HPI, All other systems negative. Constitutional, no chills no fever, no malaise no weight loss HEENT: no sore throat no congestion, no ear pain Cardiovascular: No chest pain , no palpitation Skin: no rashes, no change in skin Respiratory: No dyspnea no cough no sputum no hemoptysis GI: No nausea no vomiting, no diarrhea, no bloating/constipation : No dysuria No hematuria, no frequency Muscle skeletal: No joint pain, no back pain, no neck pain, Neurologic: , no headache Psych: No stress no depression,. Heme/endocrine: No bruising no bleeding Immunology: No lymphadenopathy (Jimi Gallagher) Physical Exam Physical Exam General Appearance: well developed/nourished, alert, awake Gastrointestinal: soft, non-tender Comments: Well-developed well-nourished person in no acute distress HEENT: Normal EENT exam; PERRL, EOMI, no nystagmus. HEAD is atraumatic. moist mucous membranes. Neck: Supple, no lymphadenopathy, normal range of motion without pain or tenderness Back: Nontender, no CVA tenderness. Full range of motion Cardiovascular: Regular rate and rhythms no murmurs rubs or gallops, normal JVP Respiratory: Chest nontender.There were no bony deformities, no asymmetry. No respiratory distress. Patient speaking in full complete sentences. Breath sounds clear to auscultation bilaterally: NO W/R/R Abdomen: Soft, nontender nondistended, no appreciable organomegaly. Normal bowel sounds. No rebound/guarding, No appreciable enlargement of the abdominal aorta, No ascites. Rectal: Nontender. Black stool heme positive No mass/hemorrhoid, no fissure. Extremity: No edema, full range of motion of extremities, normal and equal pulses bilaterally, 5 out of 5 strength noted to bilateral upper and lower extremities Neuro: Alert oriented x3, motor sensory normal, cranial nerves II through XII grossly intact. There were no obvious focal neurologic abnormalities. Skin: No appreciable rash on exposed skin, skin is warm and dry. Psych: Mood and affect is normal, memory and judgment is normal. Core Measures ACS in differential dx? No Sepsis Present: No Sepsis Focused Exam Completed? No (Corin PARADA,Jimi) Progress Differential Diagnosis: bowel obstruction, colon cancer, diverticulitis, gastritis, hernia, ischemic bowel, inflamm bowel dis, peptic ulcer, PUD/GERD, perforated viscous, FECAL IMPACTION, CONSTIPATION, GI BLEED Plan of Care: Orders Procedure Date/time Status Regular Diet 09/19 B Active CBC WITHOUT DIFFERENTIAL 09/19 0700 Active BASIC METABOLIC PANEL 09/19 0700 Active Clear Liquid Diet 09/[address] in observation 09/18 1444 Active ED Holding Orders 09/18 1444 Active Patient Data 09/18 1444 Active Vital Signs 09/18 1444 Active Code Status 09/18 1444 Active AEROSOL (GEN) 09/18 1424 Complete EKG 09/18 1203 Active CULTURE,STOOL 09/18 1115 Active C.DIFFICILE 09/18 1115 Active MISTAKE 09/18 1110 Active PROTHROMBIN TIME 09/18 1108 Complete LACTIC ACID 09/18 1108 Complete COMPREHENSIVE METABOLIC PANEL 09/18 1108 Complete CBC WITHOUT DIFFERENTIAL 09/18 1108 Complete TYPE & SCREEN (NOT X-MATCH) 09/18 1108 Complete Laboratory Tests 09/18/17 1408: Lactic Acid Cancelled 09/18/17 1152: Anion Gap 11, Estimated GFR > 60, BUN/Creatinine Ratio 24.4, Glucose 115 H, Lactic Acid 1.1, Calcium 9.8, Total Bilirubin 1.1, AST 22, ALT 20 L, Alkaline Phosphatase 79, Total Protein 6.9, Albumin 3.8, Globulin 3.1, Albumin/Globulin Ratio 1.2, PT 14.7 H, INR 1.40 H, CBC w Diff NO MAN DIFF REQ, RBC 4.16 L, MCV 92.2, MCH 30.9, MCHC 33.6, RDW 14.1, MPV 8.6, Gran % 66.5, Lymphocytes % 27.5, Monocytes % 4.5, Eosinophils % 1.3, Basophils % 0.2, Absolute Granulocytes 5.7, Absolute Lymphocytes 2.4, Absolute Monocytes 0.4, Absolute Eosinophils 0.1, Absolute Basophils 0 Microbiology 09/18 1115 STOOL: Clostridium difficile Toxin A & B - ORD 09/18 111 STOOL: Stool Culture - ORD LABS ORDERED, CT ORDERED. CASE D/W DR VILLALBA AGREES WITH PLAN I discussed with the patient and his daughter at length all of his lab results. he is resting in no apparent distress she's no episodes of diarrhea here pending CAT scan Case discussed with Dr. Castro who is aware of the patient advised that the black stools may be secondary to his iron and the slight Hemoccult positive blood may be secondary to local irritation I discussed the patient and his daughter plan of care we'll keep him in ED observation for continuous monitoring and repeat H&H tomorrow morning. 1630 patient's daughter came out to the hallway asking if they can take him home she would like to follow up as an outpatient for outpatient blood work tomorrow, patient has not had any episodes of diarrhea here. Case discussed with Dr. Villalba who is okay with plan. The patient has been hemodynamically stable return precautions were discussed at length the patient's daughter feels comfortable with this plan Diagnostic Imaging: Viewed by Me: CT Scan. Discussed w/RAD: CT Scan. Radiology Impression: PATIENT: GUMARO CALI PRESENT AGE: 82 PATIENT ACCOUNT NO: [id number] : 34 LOCATION: [facility] ORDERING PHYSICIAN: Jimi PARADA SERVICE DATE: 09/18/17120 EXAM TYPE: CAT - CT ABD & PELVIS W IV CONTRAST EXAMINATION: CT ABDOMEN AND PELVIS WITH CONTRAST CLINICAL INFORMATION: [place] he stool and abdominal pain. Evaluate for colitis or diverticulitis. COMPARISON: CT scan of the abdomen and pelvis . TECHNIQUE: Multidetector volumetric imaging was performed of the abdomen and pelvis following IV administration of 95 mL of Optiray 320 intravenous contrast. Sagittal and coronal reformatted images were obtained on the technologist's workstation. DLP: 561.88 mGy-cm FINDINGS: LUNG BASES: There is platelike atelectasis within the left lower lobe. No pleural or pericardial effusion. The LIVER, GALLBLADDER, AND BILIARY TREE: Liver attenuation is homogeneous. There is no evidence of a discrete hepatic parenchymal mass. There is mild intrahepatic biliary ductal dilatation. Grossly no evidence of a distal obstructing mass or calcification within the common duct. The gallbladder is hydropic with a fundal diameter of 5.0 cm. PANCREAS: Unremarkable. SPLEEN: Unremarkable. ADRENAL GLANDS: Unremarkable. KIDNEYS AND URETERS: Kidneys demonstrate symmetric corticomedullary enhancement characteristics. There are a few well marginated benign-appearing cystic lesions within both kidneys. Grossly no worrisome renal parenchymal mass. No abnormal perinephric inflammation or collection. There is no hydronephrosis. No worrisome mass or calcification along the expected course of the right or left ureters. BLADDER: Unremarkable. GASTROINTESTINAL TRACT: The stomach and small bowel is normal. The appendix is normal. Numerous diverticula are visualized primarily within the sigmoid colon. No evidence of acute diverticulitis. No worrisome colonic wall thickening. No free intraperitoneal air or fluid. ABDOMINAL WALL: There is a fat-containing left inguinal hernia. The abdominal wall is otherwise grossly intact. LYMPH NODES: There are no pathologically enlarged mesenteric or retroperitoneal lymph nodes. VASCULAR: Calcified atheromatous plaque involves the abdominal aorta and iliac vessels. Inferior vena cava is unremarkable. Incidentally there is a retroaortic left renal vein. PELVIC VISCERA: Unremarkable. OSSEOUS STRUCTURES: There is no acute osseous finding. No worrisome lytic osseous lesion. Multilevel degenerative spondylosis of lumbar spine is noted. Chronic changes of a left L4 hemilaminectomy are noted. IMPRESSION: There is no abnormal finding to provide a definitive explanation for the patient's abdominal pain and diarrhea. Specifically no clear evidence of acute diverticulitis. The gallbladder is hydropic with a fundal diameter of 5 cm and there is mild intrahepatic biliary ductal dilatation. Grossly no distal obstructing mass or calcification within the distal duct. DICTATED BY: Hynecek MD,Patric L. DATE/TIME DICTATED:09/18/171402 HOSPICE PLAN ADMINISTRATOR:ISAIAH DATE/TIME TRANSCRIBED:09/18/171402 CONFIDENTIAL, DO NOT COPY WITHOUT APPROPRIATE AUTHORIZATION. <Electronically signed in Other Vendor System> SIGNED BY: Patric Lynn MD 09/18/17 1422 Initial ED EKG: paced rhythm, at 70, no acute st seg changes, normal axis Prior EKG: unchanged Rhythm Strip: paced (Jimi Gallagher) Departure Departure Time of Disposition: 1635 Disposition: HOME OR SELF CARE Condition: Stable Clinical Impression Primary Impression: Diarrhea Referrals: Ted Vincent MD (PCP/Family) Additional Instructions: FOLLOW UP FOR OUTPATIENT LABS AND STOOL SAMPLE TOMORROW. FOLLOW UP WITH MENTAL TESTER DR STOREY. RETURN AT ANYTIME SOONER WITH ANY CONCERNS Departure Forms: Customer Survey General Discharge Information Observation Note Spoke With: Omaira Villalba MD Physician Advisor Notified: OMAIRA VILLALBA MD Place Patient In: ED Observation Rationale for Observation: My rational for observation is as follows TREND LABS AND H/H, TREND VITALS, PREMATURE DISCHARGE WOULD BE MEDICALLY HARMFUL GIVEN PTS PRESENTATION TODAY AND AGE. (Jimi Gallagher) PA/DIRECTOR MARKET RESEARCH Co-Sign Statement Statement: ED Attending supervision documentation- [X] I saw and evaluated the patient. I have also reviewed all the pertinent lab results and diagnostic results. I agree with the findings and the plan of care as documented in the PA's/DIRECTOR MARKET RESEARCH's documentation. X] I have reviewed the ED Record and agree with the PA's/DIRECTOR MARKET RESEARCH's documentation. [] Additions or exceptions (if any) to the PAs/DIRECTOR MARKET RESEARCH's note and plan are summarized below: [] (Omaira Villalba MD) ED Attending Observation Initial Observation Note: I have seen and personally examined GUMARO CALI on 09/18/17 at 1444. I agree with the current emergency department documentation. The disposition (admission or discharge) is uncertain at this time, he needs a period of observation for the following reason(s): [CLOSE OBSERVATION FOR POSSIBLE LOWER GI BLEED, REPEAT CBC, GENTLE HYDRATION] The ED Nurse caring for this patient has been personally informed as to what the patient is being observed for. (Omaira Villalba MD)
[2017-09-18 12:01] LABS: ABSOLUTE BASOPHIL COUNT 0 /CUMM (0.0-0.2); ABSOLUTE EOSINOPHIL COUNT 0.1 /CUMM (0.0-0.7); ABSOLUTE GRANULOCYTE CT 5.7 /CUMM (1.4-6.5); ABSOLUTE LYMPH COUNT 2.4 /CUMM (1.2-3.4); ABSOLUTE MONOCYTE COUNT 0.4 /CUMM (0.10-0.60); BASOPHIL % 0.2 % (0.0-2.0); EOSINOPHIL % 1.3 % (0-5); GRANULOCYTE % 66.5 % (42.2-75.2); HEMATOCRIT 38.3 % (42-52); MEAN CORPUSCULAR HGB 30.9 PG (27.0-31.0); MEAN CORPUSCULAR HGB CONC 33.6 G/DL (33.0-37.0); MEAN CORPUSCULAR VOLUME 92.2 FL (80.0-94.0); MEAN PLATELET VOLUME 8.6 FL (7.4-10.4); PLATELET COUNT 142 /CUMM (130-400); RBC DISTRIBUTION WIDTH 14.1 % (11.5-14.5); RED BLOOD CELL CT 4.16 /CUMM (4.70-6.10); WHITE BLOOD CELL COUNT 8.6 /CUMM (4.8-10.8)
[2017-09-18 12:08] LABS: PT 14.7 SEC (9.4-12.5)
[2017-09-18] MEDS ORDERED: FUROSEMIDE80 M1 PO (12:43)
[2017-09-18] MEDS ORDERED: FUROSEMIDE40 M1 PO (12:43)
[2017-09-18] MEDS ORDERED: PANTOPRAZOLE SO40 M1 PO (12:45)
[2017-09-18] MEDS ORDERED: AZITHROMYCIN250 M1 PO (12:45)
--- NOTE | 2017-09-18 14:22 | CT SCAN REPORT ---
EXAMINATION: CT ABDOMEN AND PELVIS WITH CONTRAST CLINICAL INFORMATION: [place] he stool and abdominal pain. Evaluate for colitis or diverticulitis. COMPARISON: CT scan of the abdomen and pelvis 07/19/2016. TECHNIQUE: Multidetector volumetric imaging was performed of the abdomen and pelvis following IV administration of 95 mL of Optiray 320 intravenous contrast. Sagittal and coronal reformatted images were obtained on the technologist's workstation. DLP: 561.88 mGy-cm FINDINGS: LUNG BASES: There is platelike atelectasis within the left lower lobe. No pleural or pericardial effusion. The LIVER, GALLBLADDER, AND BILIARY TREE: Liver attenuation is homogeneous. There is no evidence of a discrete hepatic parenchymal mass. There is mild intrahepatic biliary ductal dilatation. Grossly no evidence of a distal obstructing mass or calcification within the common duct. The gallbladder is hydropic with a fundal diameter of 5.0 cm. PANCREAS: Unremarkable. SPLEEN: Unremarkable. ADRENAL GLANDS: Unremarkable. KIDNEYS AND URETERS: Kidneys demonstrate symmetric corticomedullary enhancement characteristics. There are a few well marginated benign-appearing cystic lesions within both kidneys. Grossly no worrisome renal parenchymal mass. No abnormal perinephric inflammation or collection. There is no hydronephrosis. No worrisome mass or calcification along the expected course of the right or left ureters. BLADDER: Unremarkable. GASTROINTESTINAL TRACT: The stomach and small bowel is normal. The appendix is normal. Numerous diverticula are visualized primarily within the sigmoid colon. No evidence of acute diverticulitis. No worrisome colonic wall thickening. No free intraperitoneal air or fluid. ABDOMINAL WALL: There is a fat-containing left inguinal hernia. The abdominal wall is otherwise grossly intact. LYMPH NODES: There are no pathologically enlarged mesenteric or retroperitoneal lymph nodes. VASCULAR: Calcified atheromatous plaque involves the abdominal aorta and iliac vessels. Inferior vena cava is unremarkable. Incidentally there is a retroaortic left renal vein. PELVIC VISCERA: Unremarkable. OSSEOUS STRUCTURES: There is no acute osseous finding. No worrisome lytic osseous lesion. Multilevel degenerative spondylosis of lumbar spine is noted. Chronic changes of a left L4 hemilaminectomy are noted. IMPRESSION: There is no abnormal finding to provide a definitive explanation for the patient's abdominal pain and diarrhea. Specifically no clear evidence of acute diverticulitis. The gallbladder is hydropic with a fundal diameter of 5 cm and there is mild intrahepatic biliary ductal dilatation. Grossly no distal obstructing mass or calcification within the distal duct.
[2017-09-18 16:25] VITALS: BP 124/58
== END 2017-09-18 16:48 ==
LOC: ERH 11:02 → CMPBEDREQ 18:51
PROVIDERS: Physician Assistant Medical
DX: R19.7 Diarrhea, unspecified (principal)
CPT/HCPCS: 74177; 87045; 93005; 93010; 96360